=== PATIENT | male | born 1965 | race Caucasian/White ===

== ENCOUNTER → 2020-06-18 13:40 | Outpatient (CLI) | payer BC, SELFPAY ==
[2020-06-18 14:10] LABS: Basophils # 0.1 K/mm3 (0-0.2); Basophils % 0.9 % (0.1-2.0); Eosinophils # 0.2 K/mm3 (0.0-0.4); Eosinophils % 2.9 % (0.1-12.0); Hematocrit 42.8 % (42.0-52.0); Hemoglobin 13.9 g/dL (14.1-18.0); Lymphocytes # 1.9 K/mm3 (0.7-4.5); Lymphocytes % 25.8 % (10-50); Mean Corpuscular HGB Conc 32.4 g/dL (31.8-35.4); Mean Corpuscular Hemoglobin 32.3 pg (27.0-31.2); Mean Corpuscular Volume 99.7 fl (80-94); Mean Platelet Volume 7.8 fl (7.4-10.4); Monocytes # 0.5 K/mm3 (0.1-1.0); Monocytes % 6.9 % (1.7-9.3); Neutrophils # 4.7 K/mm3 (1.8-7.8); Neutrophils % 63.4 % (37.0-80.0); Platelet Count 303 K/mm3 (142-424); Red Blood Count 4.29 M/mm3 (4.60-6.20); Red Cell Distribution Width 13.3 % (11.5-17.5); White Blood Count 7.5 K/mm3 (4.8-10.8)
[2020-06-18 14:17] LABS: Alanine Aminotransferase 52 U/L (12-78); Albumin Level 4.7 g/dl (3.5-5.0); Albumin/Globulin Ratio 1.4 (1.1-1.8); Alkaline Phosphatase 84 U/L (38-126); Anion Gap 17.2 mEq/L (5-15); Aspartate Amino Transferase 123 U/L (17-59); Bilirubin,Total 0.4 mg/dl (0.2-1.3); Blood Urea Nitrogen 8 mg/dl (9-20); Calcium 9.8 mg/dl (8.4-10.2); Carbon Dioxide 24 mmol/L (22.0-30.0); Chloride 103 mmol/L (98-107); Chol/HDL Ratio 2.9 (1-3.5); Cholesterol 180 mg/dl (140-200); Estimated Glomerular Filt Rate 102 ml/min (>60); GFR (African American) 123 ML/MIN (>60); Globulin 3.4 g/dL (1.3-3.2); Glucose 119 mg/dl (74-100); HDL Cholesterol 62 mg/dl (40-60); Potassium 4.2 mmoL/L (3.5-5.1); Sodium 140 mmol/L (136-145); Total Protein,Serum 8.1 g/dl (6.3-8.2); Triglycerides 337 mg/dl (30-150); VLDL Cholesterol 67 mg/dL (0-40)
[2020-06-18 14:28] LABS: Direct LDL Cholesterol 87.29 mg/dL (100-129)
[2020-06-18 14:46] LABS: Prostate Specific Ag Screen 0.3 ng/ml (0.0-4.0); Thyroid Stimulating Hormone 1.34 uIU/mL (0.465-4.68)
== END ==
PROVIDERS: Visit Provider Family Medicine
DX: Z00.00 Encounter for general adult medical examination without abnormal findings (principal); M54.2 Cervicalgia; E78.5 Hyperlipidemia, unspecified; E03.9 Hypothyroidism, unspecified; Z12.5 Encounter for screening for malignant neoplasm of prostate
CPT/HCPCS: 80053; 80061; 84443; 85025; G0103

== ENCOUNTER → 2021-08-11 17:39 | Outpatient (CLI) | payer BC, SELFPAY ==
[2021-08-11 17:30] LABS: Basophils # 0.1 K/mm3 (0-0.2); Basophils % 1.5 % (0.1-2.0); Eosinophils # 0.2 K/mm3 (0.0-0.4); Eosinophils % 3.2 % (0.1-12.0); Hematocrit 44.8 % (42.0-52.0); Hemoglobin 14.9 g/dL (14.1-18.0); Lymphocytes # 2.2 K/mm3 (0.7-4.5); Lymphocytes % 35.3 % (10-50); Mean Corpuscular HGB Conc 33.4 g/dL (31.8-35.4); Mean Corpuscular Hemoglobin 33.8 pg (27.0-31.2); Mean Corpuscular Volume 101.2 fl (80-94); Monocytes # 0.4 K/mm3 (0.1-1.0); Monocytes % 6.4 % (1.7-9.3); Neutrophils # 3.3 K/mm3 (1.8-7.8); Neutrophils % 53.4 % (37.0-80.0); Platelet Count 325 K/mm3 (142-424); Red Blood Count 4.42 M/mm3 (4.60-6.20); Red Cell Distribution Width 13.5 % (11.5-17.5); White Blood Count 6.1 K/mm3 (4.8-10.8)
[2021-08-11 17:39] LABS: Chloride 107 mmol/L (98-107); Potassium 4.1 mmoL/L (3.5-5.1); Sodium 142 mmol/L (136-145)
[2021-08-11 17:41] LABS: Blood Urea Nitrogen 7 mg/dl (9-20); Estimated Glomerular Filt Rate 141 ml/min (>60); GFR (African American) 171 ML/MIN (>60)
[2021-08-11 17:42] LABS: Alanine Aminotransferase 176 U/L (12-78); Albumin Level 4.8 g/dl (3.5-5.0); Albumin/Globulin Ratio 1.5 (1.1-1.8); Alkaline Phosphatase 79 U/L (38-126); Anion Gap 18.1 mEq/L (5-15); Aspartate Amino Transferase 274 U/L (17-59); Bilirubin,Total 0.6 mg/dl (0.2-1.3); Carbon Dioxide 21 mmol/L (22.0-30.0); Globulin 3.3 g/dL (1.3-3.2); Glucose 94 mg/dl (74-100); Total Protein,Serum 8.1 g/dl (6.3-8.2)
[2021-08-11 18:12] LABS: Thyroid Stimulating Hormone 1.14 uIU/mL (0.465-4.68)
== END ==
PROVIDERS: Visit Provider Family Medicine
DX: E03.9 Hypothyroidism, unspecified (principal)
CPT/HCPCS: 80053; 84443; 85025

== ENCOUNTER 2025-04-06 10:00 | Outpatient (CLI) | payer BC, SELFPAY ==
[2025-04-06 16:30] LABS: Hematocrit 38.3 % (42.0-52.0); Hemoglobin 12.9 g/dL (14.1-18.0); Immature Granulocytes % 0.4 %; Mean Corpuscular HGB Conc 33.7 g/dL (31.8-35.4); Mean Corpuscular Hemoglobin 34.8 pg (27.0-31.2); Mean Corpuscular Volume 103.2 fl (80-94); Nucleated Red Blood Cells % 0 %; Platelet Count 176 K/mm3 (142-424); Red Blood Count 3.71 M/mm3 (4.60-6.20); Red Cell Distribution Width-SD 47.2 fL; White Blood Count 5.2 K/mm3 (4.8-10.8)
[2025-04-06 16:47] LABS: INR 1.19 (0.9-1.1); Prothrombin Time 13.0 seconds (10.1-12.5)
[2025-04-06 17:03] LABS: Albumin Level 4.0 g/dl (3.5-5.0); Chloride 101 mmol/L (98-107); Potassium 3.8 mmoL/L (3.5-5.1); Sodium 142 mmol/L (136-145)
[2025-04-06 17:05] LABS: Alanine Aminotransferase 38 U/L (12-78); Anion Gap 21.8 mEq/L (5-15); Aspartate Amino Transferase 160 U/L (17-59); Blood Urea Nitrogen 3 mg/dl (9-20); Carbon Dioxide 23 mmol/L (22.0-30.0); Creatinine,Serum 0.50 mg/dl (0.66-1.25); Estimated Glomerular Filt Rate 171 ml/min (>60); GFR (African American) 207 ML/MIN (>60)
[2025-04-06 17:06] LABS: Albumin/Globulin Ratio 1.1 (1.1-1.8); Alkaline Phosphatase 187 U/L (38-126); Bilirubin,Total 0.9 mg/dl (0.2-1.3); Calcium 8.8 mg/dl (8.4-10.2); Cholesterol 186 mg/dl (140-200); Globulin 3.7 g/dL (1.3-3.2); Glucose 70 mg/dl (74-100); HDL Cholesterol 66 mg/dl (40-60); Lipase 197 U/L (23-300); Magnesium 1.9 mg/dl (1.6-2.3); Total Protein,Serum 7.7 g/dl (6.3-8.2); Triglycerides 103 mg/dl (30-150)
[2025-04-06 17:44] LABS: Hepatitis C Ab Qual. W/ RFX NEGATIVE (Negative)
[2025-04-06 19:06] LABS: Vitamin B12 745 pg/mL (239-931)
[2025-04-06 19:38] LABS: Folate 9.30 ng/mL
[2025-04-07 06:16] LABS: Hepatitis B Surface Antigen Negative (Negative)
--- OUTSIDE RECORDS SUMMARY | 2025-04-07 08:19 | XMS_ITS | Clinical Summary ---
Author Organization [facility] Address [address] [place] [address] Care Team Providers Care Chief Diversity Officer Name Role Phone Pcp, No Primary Care Provider Unavailabl e Allergies Active Allergy Reactions Criticality Noted Date Comments Hydrocodone-Acetaminophen Other - please document in the comment field Low 11/15/2012 Medications atorvastatin (Lipitor) 20 MG tablet Take 1 tablet (20 mg) by mouth 1 (one) time each day in the morning. 4 Active ergocalciferol 1.25 MG (97608 UT) capsule every 14 (fourteen) days. Sunday and Sunday 4 Active levothyroxine (Synthroid, Levoxyl) 50 MCG tablet Take 1 tablet (50 mcg) by mouth 1 (one) time each day in the morning. 4 Active latanoprost (Xalatan) 0.005 % ophthalmic solution Administer 1 drop into both eyes 1 (one) time each day. 2.5 mL 11 4 Active brimonidine 0.2 % OP ophthalmic solution Administer 1 drop into both eyes 2 (two) times a day. 5 mL 11 4 Active timolol (Timoptic) 0.5 % ophthalmic solution Administer 1 drop into both eyes 2 (two) times a day. 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 Age-related nuclear cataract of both eyes 2023 Resolved Problems Problem Noted Date Diagnosed Date Resolved Date Combined forms of age-relate d cataract of both eyes 09/13/2023 03/22/2025 Family History Medical History Relation Name Comments Cancer Mother Cataracts Mother Heart disease Mother Relation Name Status Comments Mother Social History Tobacco Use Types Packs/Day Years Used Date Smoking Tobacco: Never Smokeless Tobacco: Current Snuff Tobacco Cessation:Ready to Q uit: Not Asked; Counseling Given: Not Answered Comments:Can daily Alcohol Use Standard Drinks/Week Comments Yes 90 (1 standard drink = 0.6 oz pu re alcohol) Sex and Gender Information Value Date Recorded Sex Assigned at Male 09/10/2023 6:48 PM EDT Legal Sex Male 7:48 PM EDT Gender Identity Male 09/10/2023 6:48 PM EDT Sexual Orientation Not on file Last Filed Vital Signs Vital Sign Reading Time Taken Comments Blood Pressure 127/95 12/04/2023 12:15 PM EDT Pulse 60 12/04/2023 12:15 PM EDT Temperature 36.5 C (97.7 F) 12/04/2023 12:15 PM EDT Respiratory Rate 20 12/04/2023 12:1 5 PM EDT Oxygen Saturation 97% 12/04/2023 12: 15 PM EDT Inhaled Oxygen Concentration - - Weight 82.9 kg (182 lb 12.2 oz) 024 10:17 AM EDT Height 177.8 cm (5' 10 ) 12/04/2023 10: 17 AM EDT Body Mass Index 26.22 12/04/2023 10:17 AM EDT Plan of Treatment Health Maintenance Due Date Last Done Comments [facility]-Depression Screening 1967 [facility]-HIV Screening 1967 [facility]-Hepatitis C Screening 1967 [facility]-/Child/Adol SDOH Screenings 1965 [id number] Vaccine (#1) 11/19/1972 [facility]- SDOH Screenings 11/19/1985 [facility]-Adult SDOH Screenings 11/19/1985 [facility]-Hepatitis B Vaccines (1 of 3 - 19+ 3-dose series) 11/19/1986 CT Colonography 11/19/2012 Colonoscopy 11/19/2012 FIT-DNA 11/19/2012 FIT 11/19/2012 FOBT 11/19/2012 Sigmoidoscopy 11/19/2012 [facility]-Colorectal Cancer Screening 11/19/2012 [facility]-Pneumococcal Vaccine: 50 + Years (1 of 1 - PCV) 11/19/2017 [facility]-Zoster Vaccines (1 of 2) 11/19/2017 [facility]-Influenza Vaccine (#1) 2025 03/28/2013 [facility]-DTaP,Tdap,and Td Vaccine s (3 - Td or Tdap) 01/09/2033 01/09/2023, 02/25/2013, 07/17/1996 [facility]-Obesity Intervention Completed 07/30/2023 HPV Vaccines Aged Out No longer eligi ble based on patient's age to complete this topic [facility]-HIB Vaccines Aged Out No longer e ligible based on patient's age to complete this topic [facility]-Hepatitis A Vaccines Aged Out No longer eligible based on patient's age to complete this topic [facility]-IPV Vaccines Aged Out No longer e ligible based on patient's age to complete this topic [facility]-Rotavirus Vaccines Aged Out No lo nger eligible based on patient's age to complete this topic Medical Devices Implanted Type Area Plant Breeder Device Identifier Shelf Expiration Date Model / Serial / Lot Lens Monofocal Clear [id number] 21.0 - [id number] Implanted:Qty: 1 on 2023 by Eitan Meza MD at [facility] Left: Eye [id number] 04/10/2027 CC60WF.210 / [id number] / [id number] Lens Monofocal Clear [id number] 20.5 - [id number] Implanted:Qty: 1 on 12/04/2023 by Eitan Meza MD at [facility] Right: Eye [id number] 05/23/2027 CC60WF.205 / [id number] / [id number] Insurance [employer] Care Teams Chief Diversity Officer Relationship Specialty Start Date End Date Pcp, [place] [address] PCP - General Family Medicine 08/23/23
--- OUTSIDE RECORDS SUMMARY | 2025-04-07 08:19 | XMS_ITS | Clinical Summary ---
Author Organization [facility] Address [address] [address] [address] Phone Care Team Providers Care Inspector Precision Name Role Phone Martin Richards MD Primary Care Provider [phone] Allergies Active Allergy Reactions Criticality Noted Date Comments Hydrocodone-Acetaminophen 11/15/2012 Medications No known medications Medical History Medical History Date Comments Thyroid disease Social History Tobacco Use Types Packs/Day Years Used Date Smoking Tobacco: Never Smokeless Tobacco: Current Snuff Alcohol Use Standard Drinks/Week Comments Yes 24 (1 standard drink = 0.6 oz pu re alcohol) daily/18-24 beers Sex and Gender Information Value Date Recorded Sex Assigned at Not on file Legal Sex Male 11:10 AM EDT Gender Identity Not on file Sexual Orientation Not on file Last Filed Vital Signs Vital Sign Reading Time Taken Comments Blood Pressure 112/79 12/11/2022 1:10 AM EDT Pulse 74 12/11/2022 1:20 AM EDT Temperature 36.5 C (97.7 F) 12/10/2022 10:19 PM EDT Respiratory Rate 17 12/11/2022 1:20 AM EDT Oxygen Saturation 97% 12/11/2022 1:20 AM EDT Inhaled Oxygen Concentration - - Weight - - Height - - Body Mass Index - - Plan of Treatment Health Maintenance Due Date Last Done Comments Annual Wellness Exam 11/19/1970 Hepatitis B Vaccine (1 of 3 - 19+ 3-dose series) 11/19/1986 Cologuard 11/19/2012 FIT 11/19/2012 Sigmoidoscopy 11/19/2012 Virtual Colonography 11/19/2012 Pneumococcal Vaccine 50+ (1 of 1 - PCV) 11/19/2017 Zoster (1 of 2) 11/19/2017 Colon Cancer Screening 11/28/2018 Colonoscopy 11/28/2018 11/29/2015 DTaP/TDaP/Td (2 - Td or Tdap) 02/25/2023, 07/17/1996 COVID-19 Vaccine (1 - 2024-2 6 season) 2025 Influenza Vaccine (#1) 2025 03/28/2013 Meningococcal B Vaccine Aged Out No l onger eligible based on patient's age to complete this topic Insurance [facility] PPO Care Teams Inspector Precision Relationship Specialty Start Date End Date Martin Richards MD PCP - General Family Medicine 07/17/17
== END 2025-04-06 23:59 ==
LOC: LAB.DROPOF 04-07 08:16
PROVIDERS: PCP Family Medicine; Visit Provider Family Medicine
DX: E78.5 Hyperlipidemia, unspecified (principal); E03.9 Hypothyroidism, unspecified; R42 Dizziness and giddiness; R10.9 Unspecified abdominal pain; K74.60 Unspecified cirrhosis of liver; Z11.59 Encounter for screening for other viral diseases
CPT/HCPCS: 80053; 80061; 82105; 82607; 82746; 83690; 83735; 85025; 85610; 86803; 87340; 87389

== ENCOUNTER 2025-04-13 07:05 | Outpatient (CLI) | payer BC, SELFPAY ==
--- OUTSIDE RECORDS SUMMARY | 2025-04-13 07:08 | XMS_ITS | Data Portability ---
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 Lab CBC w/ auto diff 2024 025 [facility]FT[facility]I [facility], [address], [address], [place], [address], 5 12:36:57 magnesium, serum or plasma 2024 025 [facility]I [facility], [address], [place], [address], 5 12:37:01 TSH + free T4, serum 2024 025 [facility], [address], [address], [place], [address], 12:36:57 HbA1c (hemoglobi n A1c), blood 2024 025 [facility], [address], [address], [place], [address], 12:37:00 cobalamin and folate panel, serum 2024 025 [facility], [address], [place], [address], 12:36:59 vitamin D, 25-hydroxy , total, serum 2024 025 [facility], [address], [address], [place], [address], 12:37:01 iron + TIBC + ferritin, serum 2024 025 [facility], [address], [address], [place], [address], 12:36:56 CMP, serum or plasma 2024 025 [facility], [address], [address], [place], [address], 12:36:58 thyroid panel, serum 2021 022 [facility], [address], [place], [address], 16:36:41 HbA1c (hemoglobi n A1c), blood 2021 022 [facility], [address], [address], [place], [address], 16:36:43 CMP, serum or plasma 2021 022 [facility], [address], [place], [address], 16:36:39 hepatic function panel, serum 2021 [facility], [address], [place], [address], 16:36:40 lipid panel, serum 2021 [facility]FTAIL [facility], [address], [address], [place], [address], 16:36:40 ferritin, serum or plasma 2021 [facility], [address] [place], [address], 16:36:45 folate, serum 2021 [facility], [address] [place] [address], [address], 16:36:44 iron + total iron-nayeli ng capacity (TIBC), serum 2021 [facility], [address] [place] [address], [address], 16:36:42 retic count, blood 2021 [facility], [address] [place] [address], [address], 16:36:45 vitamin B12, serum 2021 [facility], [address] [place] [address], [address], 16:36:44 CBC 2021 [facility], [address] [place], [address], 16:36:39 PSA, serum or plasma 2021 [facility], [address], [place], [address], 2 16:36:42 hepatitis panel (A+B+C), acute, serum 2019 020 [facility], [address], [address], [place], [address], 0 05:37:07 hepatitis C Ab, signal-to- cutoff, serum or plasma 2019 020 [facility], [address], [address], [place], [address], 0 03:36:04 HIV 1+2 Ab, rapid IA, serum, plasma or blood 2019 020 [facility], [address], [address], [place], [address], 0 03:35:59 vitamin B12 + folate, serum or blood 2019 020 [facility], [address], [address], [place], [address], 0 03:36:00 CBC w/ auto diff 2019 020 [facility], [address], [address], [place], [address], 0 03:35:56 HbA1c (hemoglobi n A1c), blood 2019 020 [facility], [address], [address], [place], [address], 0 03:36:02 magnesium, serum or plasma 2019 020 [facility], [address], [place], [address], 0 03:36:04 CMP, serum or plasma 2019 020 [facility], [address], [place], [address], 0 03:35:57 vitamin B12, serum 2019 020 [email or web address] [facility], [address], [place], [address], 0 07:48:41 TSH, ultra-sens itive, serum 2019 020 [facility]I [facility], [address], [address], [place], [address], 0 03:36:02 vitamin D, 25-hydroxy , total, serum 2019 020 [facility], [address], [address], [place], [address], 0 03:36:03 iron + total iron-nayeli ng capacity (TIBC), serum 2019 020 [facility], [address], [address], [place], [address], 0 03:35:58 lipid panel, serum 2019 020 [facility], [address], [address], [place], [address], 0 03:35:58 testostero ne, free + total, serum 2019 020 [facility], [address], [address], [place], [address], 0 03:36:00 shbg (sex hormone-bi nding globulin), serum 2019 020 [facility], [address], [address], [place], [address], 0 03:36:05 PSA, serum or plasma 2019 020 [facility], [address], [address], [place], [address], 0 03:36:01 TSH + free T4, serum 2017 018 [facility], [address], [place], [address], 8 08:54:17 CBC w/ auto diff 2017 018 [facility], [address], [place], [address], 8 08:54:18 CMP, serum or plasma 2017 018 [facility], [address], [place], [address], 8 08:54:[address] referral 2019 020 [email or web address] Jolie Charlton MD, [address] , [place], [address], 1 13:36:41 Procedures None recorded. Surgeries None recorded. Imaging CT, head, w/o contrast - call Erika at to schedule 2024 025 [facility], [address], [place], [address], 5 12:52:30 loop monitor 2019 020 [email or web address] [facility], [address], [place], [address], 1 13:37:34 electrocar diogram 2019 [email or web address] 1 [facility], [address] [place], [address], 0 16:06:23 XR, shoulder, 2 or more view 2017 018 [facility], [address] [place], [address], 8 20:09:52 Medication Orders ketorolac 60 mg/2 mL intramuscu lar solution 2021 022 [email or web address] Not available 2 15:00:10 Celestone Soluspan 6 mg/mL suspension for injection 2021 022 [email or web address] Not available 2 15:00:08 cyclobenza dora 10 mg tablet [address] [facility], [address] [place], [address], 5 08:11:33 levothyrox ine 50 mcg tablet [address] [facility] [address] [facility], [address] [place], [address], 5 08:15:52 Vitamin D2 1,250 mcg (50,000 unit) capsule [address] [facility] [address] [facility], [address] [place], [address], 5 08:15:56 atorvastat in 20 mg tablet [address] [facility] [address] [facility], [address] [place], [address], 5 08:15:33 Depo-Medro l 80 mg/mL suspension for injection 2019 020 Not available 0 10:38:37 tramadol 50 mg tablet [address] [facility], [address] [place], [address], 5 08:11:20 Ambien 5 mg tablet 2017 018 NEFTALI [facility], [address] [place], [address], 2 07:53:51 Depo-Medro l 80 mg/mL suspension for injection 2017 018 [email or web address] [facility], [address] [place], [address], 0 10:38:37 Patient TargetsNo targets recorded. Patient Instructions Encounter Date Encounter Id Patient Instructions Last Modified By Organization Details Last Modified Time 09/26/2017 [id number] elevated blood pressure: care instructions [email or web address] Not available 09/26/2017 20:09:52 insomnia: care instructions sneus Not available 09/28/2017 07:44:48 high cholesterol : care instructions sneus Not available 09/26/2017 20:09:52 A healthy lifestyle: care instructions sneus Not available 09/26/2017 20:09:52 shoulder pain: care instructions sneus Not available 09/26/2017 20:09:52 03/01/2020 [id number] cardiac arrhythmia: care instructions Not available 03/01/2020 14:35:15 dizziness: care instructions Not available 03/01/2020 14:35:15 high cholesterol : care instructions Not available 03/01/2020 14:35:14 Quitting Tobacco : Care Instructions Not available 03/01/2020 15:26:43 smoking cessatio n counseling, greater than 3 minutes up to 10 minutes* Not available 03/09/2020 07:47:06 keep well hydrated, gentle stretching exercises, awaiting lab results for further clinical decision making RT C in 2 weeks for follow up Not available 03/01/2020 15:27:56 03/18/2020 [id number] acute alcohol intoxication: care instructions Not available 03/18/2020 11:09:51 high cholesterol : care instructions Not available 03/18/2020 10:55:25 keep well hydrated, take medication as prescribed, medications discussed with pt and side effects and adverse effects were discussed, RTC as scheduled and prn Not available 03/18/2020 11:08:14 discussed abnormal lab values with pt and new medications, gave pt ample time for questions, was at his side, he will RTC in 3 months Not available 03/18/2020 11:08:51 07/14/2021 [id number] acute alcohol intoxication: care instructions Not available 07/14/2021 09:02:46 high cholesterol : care instructions Not available 07/14/2021 09:02:46 anemia: care instructions Not available 07/14/2021 09:02:46 Quitting Tobacco : Care Instructions Not available 07/14/2021 09:02:46 shoulder pain: care instructions Not available 07/14/2021 09:02:46 keep well hydrated, take medication as prescribed, medications discussed with pt and side effects and adverse effects were discussed, RTC prn Not available 07/14/2021 09:11:24 pt did not fill out the controlled agreement form to get Tramadol as he gets on occassion, he states he smokes dope and is not going to come out here for pill counts or drug screens, therefore he will need to take NSAIDS as directed OTC for pain. awaiting lab results for further diagnostic decision making Not available 07/14/2021 09:11:33 01/19/2025 [id number] smoking cessatio n counseling, greater than 3 minutes up to 10 minutes* Not available 01/19/2025 08:17:03 body mass index: care instructions Not available 01/19/2025 09:58:37 learning about healthy weight Not available 01/19/2025 09:58:37 Discussed if symptoms returned, recommend ED evaluation Advised to take medication as directed Will call with results of labs and imaging once available Discussed intermediate card tender effect of chronic alcoholism To call office for questions, concerns or issues Not available 01/19/2025 08:47:49 Reason for Referral Mandate [employer] Referral for Co nduction disorder of the heart Referring Physician: Faustina Sharma, Family Medicine, Encounter Date: 03/01/2020 Results Created Date Observation Date Name Description Value Unit Range Abnormal Flag Note LastModifiedBy Organization Detail LastModifiedTime 09/27/19 18 09/27/2017 TSH + free T4, serum TSH 1.440 uIU/m L 0.450- 4.500 Not Available [facility] ([facility]) [address], [place], [address], 09/27/2017 08:54:17 09/27/19 18 09/27/2017 TSH + free T4, serum T4,free(dire ct) 1.04 NG/dL 0.82-1 .77 Not Available [facility] ([facility]) [address] [place], [address], 09/27/2017 08:54:17 09/27/19 18 09/27/2017 CBC w/ auto diff WBC 6.1 x10e3 /uL 3.4-10 .8 Not Available [facility] ([facility]) [address] [place], [address], 09/27/2017 08:54:18 09/27/19 18 09/27/2017 CBC w/ auto diff RBC 4.41 x10e6 /uL 4.14-5 .80 Not Available [facility] ([facility]) [address] [place], [address], 09/27/2017 08:54:18 09/27/19 18 09/27/2017 CBC w/ auto diff hemoglobin 14.8 g/dL 13.0-1 7.7 Not Available [facility] ([facility]) [address] [place], [address], 09/27/2017 08:54:18 09/27/19 18 09/27/2017 CBC w/ auto diff hematocrit 41.6 % 37.5-5 1.0 Not Available [facility] ([facility]) [address] [place], [address], 09/27/2017 08:54:18 09/27/19 18 09/27/2017 CBC w/ auto diff MCV 94 fL 79-97 Not Available [facility] ([facility]) [address] [place], [address], 09/27/2017 08:54:18 09/27/19 18 09/27/2017 CBC w/ auto diff MCH 33.6 pg 26.6-3 3.0 above high normal Not Available [facility] ([facility]) [address], [place], [address], 09/27/2017 08:54:18 09/27/19 18 09/27/2017 CBC w/ auto diff MCHC 35.6 g/dL 31.5-3 5.7 Not Available [facility] ([facility]) [address], [place], [address], 09/27/2017 08:54:18 09/27/19 18 09/27/2017 CBC w/ auto diff RDW 13.4 % 12.3-1 5.4 Not Available [facility] ([facility]) [address], [place], [address], 09/27/2017 08:54:18 09/27/19 18 09/27/2017 CBC w/ auto diff platelets 290 x10e3 /uL 150-37 9 Not Available [facility] ([facility]) [address], [place], [address], 09/27/2017 08:54:18 09/27/19 18 09/27/2017 CBC w/ auto diff neutrophils 50 % not estab. Not Available [facility] ([facility]) [address] [place], [address], 09/27/2017 08:54:18 09/27/19 18 09/27/2017 CBC w/ auto diff lymphs 37 % not estab. Not Available [facility] ([facility]) [address], [place], [address], 09/27/2017 08:54:18 09/27/19 18 09/27/2017 CBC w/ auto diff monocytes 9 % not estab. Not Available [facility] ([facility]) [address] [place], [address], 09/27/2017 08:54:18 09/27/19 18 09/27/2017 CBC w/ auto diff eos 3 % not estab. Not Available [facility] ([facility]) [address] [place], [address], 09/27/2017 08:54:18 09/27/19 18 09/27/2017 CBC w/ auto diff basos 1 % not estab. Not Available [facility] ([facility]) [address] [place], [address], 09/27/2017 08:54:18 09/27/19 18 09/27/2017 CBC w/ auto diff immature cells PACKAGER HAND Not Available [facility] ([facility]) [address] [place], [address], 09/27/2017 08:54:18 09/27/19 18 09/27/2017 CBC w/ auto diff neutrophils (absolute) 3.1 x10e3 /uL 1.4-7. 0 Not Available [facility] ([facility]) [address] [place], [address], 09/27/2017 08:54:18 09/27/19 18 09/27/2017 CBC w/ auto diff lymphs (absolute) 2.3 x10e3 /uL 0.7-3. 1 Not Available [facility] ([facility]) [address] [place], [address], 09/27/2017 08:54:18 09/27/19 18 09/27/2017 CBC w/ auto diff monocytes(ab solute) 0.5 x10e3 /uL 0.1-0. 9 Not Available [facility] ([facility]) [address] [place], [address], 09/27/2017 08:54:18 09/27/19 18 09/27/2017 CBC w/ auto diff eos (absolute) 0.2 x10e3 /uL 0.0-0. 4 Not Available [facility] ([facility]) [address] [place], [address], 09/27/2017 08:54:18 09/27/19 18 09/27/2017 CBC w/ auto diff baso (absolute) 0.1 x10e3 /uL 0.0-0. 2 Not Available [facility] ([facility]) [address] [place], [address], 09/27/2017 08:54:18 09/27/19 18 09/27/2017 CBC w/ auto diff immature granulocytes 0 % not estab. Not Available [facility] ([facility]) [address] [place], [address], 09/27/2017 08:54:18 09/27/19 18 09/27/2017 CBC w/ auto diff immature grans (abs) 0.0 x10e3 /uL 0.0-0. 1 Not Available [facility] ([facility]) [address] [place], [address], 09/27/2017 08:54:18 09/27/19 18 09/27/2017 CBC w/ auto diff NRBC PACKAGER HAND Not Available [facility] ([facility]) [address] [place], [address], 09/27/2017 08:54:18 09/27/19 18 09/27/2017 CBC w/ auto diff hematology comments: PACKAGER HAND Not Available [facility] ([facility]) [address] [place], [address], 09/27/2017 08:54:18 09/27/19 18 09/27/2017 CMP, serum or plasm a glucose 88 mg/dL 65-99 Not Available [facility] ([facility]) [address] [place], [address], 09/27/2017 08:54:19 09/27/19 18 09/27/2017 CMP, serum or plasm a BUN 7 mg/dL 6-24 Not Available [facility] ([facility]) [address] [place], [address], 09/27/2017 08:54:19 09/27/19 18 09/27/2017 CMP, serum or plasm a creatinine 0.68 mg/dL 0.76-1 .27 below low normal Not Available [facility] ([facility]) [address] [place], [address], 09/27/2017 08:54:19 09/27/19 18 09/27/2017 CMP, serum or plasm a eGFR if nonafricn AM 112 mL/mi n/1.7 3 >59 Not Available [facility] ([facility]) [address] [place], [address], 09/27/2017 08:54:19 09/27/19 18 09/27/2017 CMP, serum or plasm a eGFR if africn AM 130 mL/mi n/1.7 3 >59 Not Available [facility] ([facility]) [address] [place], [address], 09/27/2017 08:54:19 09/27/19 18 09/27/2017 CMP, serum or plasm a BUN/creatini ne ratio 10 9-20 Not Available [facility] ([facility]) [address] [place], [address], 09/27/2017 08:54:19 09/27/19 18 09/27/2017 CMP, serum or plasm a sodium 143 mmol/ L 134-14 4 Not Available [facility] ([facility]) [address] [place], [address], 09/27/2017 08:54:19 09/27/19 18 09/27/2017 CMP, serum or plasm a potassium 3.9 mmol/ L 3.5-5. 2 Not Available [facility] ([facility]) [address] [facility] [place], [address], 09/27/2017 08:54:19 09/27/19 18 09/27/2017 CMP, serum or plasm a chloride 103 mmol/ L 96-106 Not Available [facility] ([facility] [address] [place], [address], 09/27/2017 08:54:19 09/27/19 18 09/27/2017 CMP, serum or plasm a carbon dioxide, total 19 mmol/ L 18-29 Not Available [facility] ([facility] [address] [facility] [place], [address], 09/27/2017 08:54:19 09/27/19 18 09/27/2017 CMP, serum or plasm a calcium 9.5 mg/dL 8.7-10 .2 Not Available [facility] ([facility]) [address] [place], [address], 09/27/2017 08:54:19 09/27/19 18 09/27/2017 CMP, serum or plasm a protein, total 7.4 g/dL 6.0-8. 5 Not Available [facility] ([facility]) [address] [place], [address], 09/27/2017 08:54:19 09/27/1909/27/2017 CMP, serum or plasm a albumin 4.6 g/dL 3.5-5. 5 Not Available [facility] ([facility]) [address] [place], [address], 09/27/2017 08:54:19 09/27/1909/27/2017 CMP, serum or plasm a globulin, total 2.8 g/dL 1.5-4. 5 Not Available [facility] ([facility]) [address] [place], [address], 09/27/2017 08:54:19 09/27/19 18 09/27/2017 CMP, serum or plasm a A/G ratio 1.6 1.2-2. 2 Not Available [facility] ([facility]) [address] [place], [address], 09/27/2017 08:54:19 09/27/19 18 09/27/2017 CMP, serum or plasm a bilirubin, total 0.3 mg/dL 0.0-1. 2 Not Available [facility] ([facility]) [address] [place], [address], 09/27/2017 08:54:19 09/27/19 18 09/27/2017 CMP, serum or plasm a alkaline phosphatase 77 IU/L 39-117 Not Available [facility] ([facility]) [address] [place], [address], 09/27/2017 08:54:19 09/27/19 18 09/27/2017 CMP, serum or plasm a AST (SGOT) 135 IU/L 0-40 above high normal Not Available [facility] ([facility]) [address] [place], [address], 09/27/2017 08:54:19 09/27/19 18 09/27/2017 CMP, serum or plasm a ALT (SGPT) 90 IU/L 0-44 above high normal Not Available [facility] ([facility]) [address] [place], [address], 09/27/2017 08:54:19 03/01/20 20 03/02/2020 CBC w/ auto diff WBC 9.2 x10e3 /uL 3.4-10 .8 Not Available [facility] ([facility]) [address] [place], [address], 03/05/2020 03:35:56 03/01/2003/02/2020 CBC w/ auto diff RBC 4.18 x10e6 /uL 4.14-5 .80 Not Available [facility] ([facility]) [address], [place], [address], 03/05/2020 03:35:56 03/01/2003/02/2020 CBC w/ auto diff hemoglobin 14.4 g/dL 13.0-1 7.7 Not Available [facility] ([facility]) [address] [facility] [address], [place], [address], 03/05/2020 03:35:56 03/01/2003/02/2020 CBC w/ auto diff hematocrit 41.4 % 37.5-5 1.0 Not Available [facility] ([facility]) [address], [place], [address], 03/05/2020 03:35:56 03/01/2003/02/2020 CBC w/ auto diff MCV 99 fL 79-97 above high normal Not Available [facility] ([facility]) [address], [place], [address], 03/05/2020 03:35:56 03/01/2003/02/2020 CBC w/ auto diff MCH 34.4 pg 26.6-3 3.0 above high normal Not Available [facility] ([facility]) [address] [facility] [address], [place], [address], 03/05/2020 03:35:56 03/01/2003/02/2020 CBC w/ auto diff MCHC 34.8 g/dL 31.5-3 5.7 Not Available [facility] ([facility]) [address] [place], [address], 03/05/2020 03:35:56 03/01/2003/02/2020 CBC w/ auto diff RDW 12.9 % 11.6-1 5.4 Not Available [facility] ([facility]) [address] [place], [address], 03/05/2020 03:35:56 03/01/2003/02/2020 CBC w/ auto diff platelets 321 x10e3 /uL 150-45 0 Not Available [facility] ([facility]) [address] [place], [address], 03/05/2020 03:35:56 03/01/20 20 03/02/2020 CBC w/ auto diff neutrophils 62 % not estab. Not Available [facility] ([facility]) [address], [place], [address], 03/05/2020 03:35:56 03/01/20 20 03/02/2020 CBC w/ auto diff lymphs 22 % not estab. Not Available [facility] ([facility]) [address] [place], [address], 03/05/2020 03:35:56 03/01/20 20 03/02/2020 CBC w/ auto diff monocytes 11 % not estab. Not Available [facility] ([facility]) [address] [place], [address], 03/05/2020 03:35:56 03/01/20 20 03/02/2020 CBC w/ auto diff eos 4 % not estab. Not Available [facility] ([facility]) [address], [place], [address], 03/05/2020 03:35:56 03/01/20 20 03/02/2020 CBC w/ auto diff basos 1 % not estab. Not Available [facility] ([facility]) [address], [place], [address], 03/05/2020 03:35:56 03/01/2003/02/2020 CBC w/ auto diff immature cells PACKAGER HAND Not Available [facility] ([facility]) [address] [place], [address], 03/05/2020 03:35:56 03/01/20 20 03/02/2020 CBC w/ auto diff neutrophils (absolute) 5.7 x10e3 /uL 1.4-7. 0 Not Available [facility] ([facility]) [address] [facility] [address], [place], [address], 03/05/2020 03:35:56 03/01/20 20 03/02/2020 CBC w/ auto diff lymphs (absolute) 2.0 x10e3 /uL 0.7-3. 1 Not Available [facility] ([facility]) [address] [facility] [address], [place], [address], 03/05/2020 03:35:56 03/01/20 20 03/02/2020 CBC w/ auto diff monocytes(ab solute) 1.0 x10e3 /uL 0.1-0. 9 above high normal Not Available [facility] ([facility]) [address] [facility], [place], [address], 03/05/2020 03:35:56 03/01/20 20 03/02/2020 CBC w/ auto diff eos (absolute) 0.3 x10e3 /uL 0.0-0. 4 Not Available [facility] ([facility]) [address] [facility], [place], [address], 03/05/2020 03:35:56 03/01/20 20 03/02/2020 CBC w/ auto diff baso (absolute) 0.1 x10e3 /uL 0.0-0. 2 Not Available [facility] ([facility]) [address] [facility], [place], [address], 03/05/2020 03:35:56 03/01/20 20 03/02/2020 CBC w/ auto diff immature granulocytes 0 % not estab. Not Available [facility] ([facility]) [address] [place], [address], 03/05/2020 03:35:56 03/01/20 20 03/02/2020 CBC w/ auto diff immature grans (abs) 0.0 x10e3 /uL 0.0-0. 1 Not Available [facility] ([facility]) [address] [place], [address], 03/05/2020 03:35:56 03/01/2003/02/2020 CBC w/ auto diff NRBC PACKAGER HAND Not Available [facility] ([facility]) [address] [place], [address], 03/05/2020 03:35:56 03/01/2003/02/2020 CBC w/ auto diff hematology comments: PACKAGER HAND Not Available [facility] ([facility]) [address] [place], [address], 03/05/2020 03:35:56 03/01/2003/02/2020 CMP, serum or plasm a glucose 77 mg/dL 65-99 Not Available [facility] Lab) [address] [place], [address], 03/05/2020 03:35:57 03/01/2003/02/2020 CMP, serum or plasm a BUN 11 mg/dL 6-24 Not Available [facility] ([facility]) [address] [place], [address], 03/05/2020 03:35:57 03/01/2003/02/2020 CMP, serum or plasm a creatinine 0.84 mg/dL 0.76-1 .27 Not Available [facility] ([facility]) [address] [place], [address], 03/05/2020 03:35:57 03/01/2003/02/2020 CMP, serum or plasm a eGFR if nonafricn AM 101 mL/mi n/1.7 3 >59 Not Available [facility] ([facility]) [address] [place], [address], 03/05/2020 03:35:57 03/01/2003/02/2020 CMP, serum or plasm a eGFR if africn AM 116 mL/mi n/1.7 3 >59 Not Available [facility] ([facility]) [address] [place], [address], 03/05/2020 03:35:57 03/01/2003/02/2020 CMP, serum or plasm a BUN/creatini ne ratio 13 9-20 Not Available [facility] ([facility]) [address] [place], [address], 03/05/2020 03:35:57 03/01/2003/02/2020 CMP, serum or plasm a sodium 141 mmol/ L 134-14 4 Not Available [facility] ([facility]) [address] [place], [address], 03/05/2020 03:35:57 03/01/2003/02/2020 CMP, serum or plasm a potassium 3.9 mmol/ L 3.5-5. 2 Not Available [facility] ([facility]) [address] [place], [address], 03/05/2020 03:35:57 03/01/2003/02/2020 CMP, serum or plasm a chloride 99 mmol/ L 96-106 Not Available [facility] ([facility]) [address] [place], [address], 03/05/2020 03:35:57 03/01/2003/02/2020 CMP, serum or plasm a carbon dioxide, total 25 mmol/ L 20-29 Not Available [facility] ([facility]) [address] [place], [address], 03/05/2020 03:35:57 03/01/2003/02/2020 CMP, serum or plasm a calcium 9.5 mg/dL 8.7-10 .2 Not Available [facility] ([facility]) [address] [place], [address], 03/05/2020 03:35:57 03/01/2003/02/2020 CMP, serum or plasm a protein, total 7.7 g/dL 6.0-8. 5 Not Available [facility] ([facility]) [address] [facility] [place], [address], 03/05/2020 03:35:57 03/01/2003/02/2020 CMP, serum or plasm a albumin 4.8 g/dL 3.8-4. 9 Not Available [facility] ([facility]) [address] [place], [address], 03/05/2020 03:35:57 03/01/2003/02/2020 CMP, serum or plasm a globulin, total 2.9 g/dL 1.5-4. 5 Not Available [facility] ([facility]) [address] [place], [address], 03/05/2020 03:35:57 03/01/2003/02/2020 CMP, serum or plasm a A/G ratio 1.7 1.2-2. 2 Not Available [facility] ([facility]) [address] [place], [address], 03/05/2020 03:35:57 03/01/2003/02/2020 CMP, serum or plasm a bilirubin, total 0.5 mg/dL 0.0-1. 2 Not Available [facility] ([facility]) [address] [place], [address], 03/05/2020 03:35:57 03/01/2003/02/2020 CMP, serum or plasm a alkaline phosphatase 73 IU/L 39-117 Not Available [facility] ([facility]) [address] [place], [address], 03/05/2020 03:35:57 03/01/2003/02/2020 CMP, serum or plasm a AST (SGOT) 99 IU/L 0-40 above high normal Not Available [facility] ([facility]) [address] [place], [address], 03/05/2020 03:35:57 03/01/2003/02/2020 CMP, serum or plasm a ALT (SGPT) 68 IU/L 0-44 above high normal Not Available [facility] ([facility]) [address] [place], [address], 03/05/2020 03:35:57 03/01/2003/02/2020 lipid panel , serum cholesterol, total 224 mg/dL 100-19 9 above high normal Not Available [facility] ([facility]) [address] [facility], [place], [address], 03/05/2020 03:35:58 03/01/2003/02/2020 lipid panel , serum triglyceride s 162 mg/dL 0-149 above high normal Not Available [facility] ([facility]) [address] [facility], [place], [address], 03/05/2020 03:35:58 03/01/2003/02/2020 lipid panel , serum HDL cholesterol 56 mg/dL >39 Not Available [facility] ([facility]) [address] [facility], [place], [address], 03/05/2020 03:35:58 03/01/2003/02/2020 lipid panel , serum VLDL cholesterol geovany 29 mg/dL 5-40 Not Available [facility] ([facility]) [address] [facility], [place], [address], 03/05/2020 03:35:58 03/01/2003/02/2020 lipid panel , serum LDL chol calc ([facility]) 139 mg/dL 0-99 above high normal Not Available [facility] ([facility]) [address] [place], [address], 03/05/2020 03:35:58 03/01/2003/02/2020 lipid panel , serum comment: PACKAGER HAND Not Available [facility] ([facility]) [address] [place], [address], 03/05/2020 03:35:58 03/01/2003/02/2020 iron + total iron- nayeli ng capac ity (TIBC ), serum iron bind.cap.(TI BC) 374 ug/dL 250-45 0 Not Available [facility] ([facility]) [address] [facility], [place], [address], 03/05/2020 03:35:58 03/01/2003/02/2020 iron + total iron- nayeli ng capac ity (TIBC ), serum UIBC 259 ug/dL 111-34 3 Not Available [facility] ([facility]) [address] [place], [address], 03/05/2020 03:35:58 03/01/2003/02/2020 iron + total iron- nayeli ng capac ity (TIBC ), serum iron 115 ug/dL 38-169 Not Available [facility] ([facility]) [address] [place], [address], 03/05/2020 03:35:58 03/01/2003/02/2020 iron + total iron- nayeli ng capac ity (TIBC ), serum iron saturation 31 % 15-55 Not Available [facility] ([facility]) [address] [place], [address], 03/05/2020 03:35:58 03/01/2003/02/2020 HIV 1+2 Ab, rapid IA, serum , plasm a or blood HIV 1 Ab Negati ve negati ve Not Available [facility] ([facility]) [address] [place], [address], 03/05/2020 03:35:59 03/01/2003/02/2020 HIV 1+2 Ab, rapid IA, serum , plasm a or blood HIV 2 Ab Negati ve negati ve Not Available [facility] ([facility]) [address] [place], [address], 03/05/2020 03:35:59 03/01/2003/02/2020 HIV 1+2 Ab, rapid IA, serum , plasm a or blood interpretati on: Negati ve See RNA Refle x. Not Available [facility] ([facility]) [address] [facility], [place], [address], 03/05/2020 03:35:59 03/01/2003/04/2020 HIV 1+2 Ab, rapid IA, serum , plasm a or blood HIV 1 RNA qualitative Negati ve negati ve Negat daniela for HIV-1 RNA Not Available [facility] ([facility]) [address] [facility], [place], [address], 03/05/2020 03:35:59 03/01/2003/04/2020 HIV 1+2 Ab, rapid IA, serum , plasm a or blood final interpretati on Commen t HIV antib odies were not confi rmed and HIV 1 RNA was not detec nico. No labor atory evide nce of HIV 1 infec tion. Follo w-up testi ng for HIV 2 shoul d be perfo rmed if clini gila indic ated. Not Available [facility] ([facility]) [address] [facility], [place], [address], 03/05/2020 03:35:59 03/01/2003/02/2020 vitam in B12 + folat e, serum or blood vitamin B12 460 pg/mL 232-12 45 Not Available [facility] ([facility]) [address] [facility], [place], [address], 03/05/2020 03:36:00 03/01/2003/02/2020 vitam in B12 + folat e, serum or blood folate (folic acid), serum 8.5 NG/mL >3.0 A serum folat e margarita ntrat ion of less than 3.1 ng/mL is consi dered to repre sent clini geovayn defic iency . Not Available [facility] ([facility]) [address] [facility], [place], [address], 03/05/2020 03:36:00 03/01/20 20 03/02/2020 testo stero ne, free + total , serum testosterone , serum 381 NG/dL 264-91 6 Adult male refer ence inter hector is based on a popul ation of healt hy nonob aletha males (BMI <30) betwe en 19 and 39 years old. Silvana rose, et.al . JCEM 2017, 102;1 161-1 173. PMID: 75763 103. Not Available [facility] ([facility]) [address] [place], [address], 03/05/2020 03:36:00 03/01/2003/02/2020 testo stero ne, free + total , serum free testosterone (direct) 8.4 pg/mL 7.2-24 .0 Not Available [facility] ([facility]) [address] [place], [address], 03/05/2020 03:36:00 03/01/2003/01/2020 PSA, serum or plasm a reflex criteria Commen t The perce nt free PSA is perfo rmed on a refle x basis only when the total PSA is betwe en 4.0 and 10.0 ng/mL . Not Available [facility] ([facility]) [address] [place], [address], 03/05/2020 03:36:01 03/01/2003/02/2020 PSA, serum or plasm a prostate specific Ag, serum 0.3 NG/mL 0.0-4. 0 Thomas ECLIA metho dolog y. Accor ding to the Ameri can Urolo gical Assoc iatio n, Serum PSA shoul d decre ase and remai n at undet ectab le level s after radic al prost atect shyla. The AUA defin es bioch emica l recur rence as an initi al PSA value 0.2 ng/mL or great er follo wed by a subse quent confi rmato ry PSA value 0.2 ng/mL or great er. Value s obtai jennifer with diffe rent assay metho ds or kits canno t be used inter solomon eably . Resul ts canno t be inter prete d as absol [place] evide nce of the prese nce or absen ce of evert [place] se. Not Available [facility] ([facility]) [address] [facility], [place], [address], 03/05/2020 03:36:01 03/01/2003/02/2020 HbA1c (hemo globi n A1c), blood hemoglobin A1C 5.0 % 4.8-5. 6 Predi abete s: 5.7 - 6.4 Diabe jolynn: >6.4 Glyce tracie contr ol for adult s with diabe jolynn: <7.0 Not Available [facility] ([facility]) [address] [facility], [place], [address], 03/05/2020 03:36:01 03/01/2003/02/2020 TSH, ultra -sens itive , serum TSH 4.570 uIU/m L 0.450- 4.500 above high normal Not Available [facility] ([facility]) [address] [place], [address], 03/05/2020 03:36:02 03/01/2003/02/2020 vitam in D, 25-hy droxy , total , serum vitamin D, 25-hydroxy 17.1 NG/mL 30.0-1 00.0 below low normal Vitam in D defic iency has been defin ed by the Insti tute of Medic ine and an Endoc rine Socie ty pract ice guide line as a level of serum 25-OH vitam in D less than 20 ng/mL (1,2) . The Endoc rine Socie ty went on to furth er defin e vitam in D insuf ficie ncy as a level betwe en 21 and 29 ng/mL (2). 1. IOM (Inst itute of Medic ine). 2010. Dieta ry refer ence intak es for calci um and D. Shawn gallegos [place]: [facility] Press . 2. Marilyn gonsalez [place], Dipti cruz [place], Willem off-F michael i YEUNG, et al. Evalu ation , treat ment, and preve ntion of vitam in D defic iency : an Endoc rine Socie ty clini geovany pract ice guide line. JCEM. 2010; 96(7) :1911 -30. Not Available [facility] ([facility]) [address] [facility], [place], [address], 03/05/2020 03:36:03 03/01/2003/02/2020 hepat itis C Ab, signa l-to- cutof f, serum or plasm a hep C virus Ab <0.1 s/co_ ratio 0.0-0. 9 Negat daniela: < 0.8 Indet ermin ate: 0.8 - 0.9 Posit daniela: > 0.9 The CDC recom mends that a posit daniela HCV antib roma resul t be follo wed up with a HCV Nucle ic Acid Ampli ficat ion test (5507 13). Not Available [facility] ([facility]) [address] [facility], [place], [address], 03/05/2020 03:36:03 03/01/2003/02/2020 magne sium, serum or plasm a magnesium 2.2 mg/dL 1.6-2. 3 Not Available [facility] ([facility]) [address] [facility], [place], [address], 03/05/2020 03:36:04 03/01/2003/02/2020 shbg (sex hormo ne-bi nding globu soheila), serum sex horm binding glob, serum 69.4 nmol/ L 19.3-7 6.4 Not Available [facility] ([facility]) [address] [facility], [place], [address], 03/05/2020 03:36:05 03/02/2003/02/2020 elect rocpaco diogr am Rate & Rhythm normal normal Not Available [facility] [address] [place], [address], 03/01/2020 14:31:27 03/02/20 20 03/02/2020 simon maurer am Interpretati on Not Available [facility] [address] [place], [address], 03/01/2020 14:31:27 03/18/20 20 03/19/2020 hepat itis panel (A+B+ C), acute , serum hep A Ab, IgM Negati ve negati ve Not Available [facility] ([facility]) [address] [facility], [place], [address], 03/19/2020 05:37:07 03/18/2003/19/2020 hepat itis panel (A+B+ C), acute , serum HBsAg screen Negati ve negati ve Not Available [facility] ([facility]) [address] [facility], [place], [address], 03/19/2020 05:37:07 03/18/2003/19/2020 hepat itis panel (A+B+ C), acute , serum hep B core Ab, IgM Negati ve negati ve Not Available [facility] ([facility]) [address] [facility], [place], [address], 03/19/2020 05:37:07 03/18/2003/19/2020 hepat itis panel (A+B+ C), acute , serum hep C virus Ab <0.1 s/co_ ratio 0.0-0. 9 Negat daniela: < 0.8 Indet ermin ate: 0.8 - 0.9 Posit daniela: > 0.9 The CDC recom mends that a posit daniela HCV antib roma resul t be follo wed up with a HCV Nucle ic Acid Ampli ficat ion test (5507 13). Not Available [facility] ([facility]) [address] [facility], [place], [address], 03/19/2020 05:37:07 07/15/19 22 07/15/2021 COMP. METAB OLIC PANEL (14) glucose 83 mg/dL 65-99 Not Available [facility] ([facility]) [address] [place], [address], 07/15/2021 16:36:38 07/15/19 22 07/15/2021 COMP. METAB OLIC PANEL (14) BUN 7 mg/dL 6-24 Not Available [facility] ([facility]) [address] [place], [address], 07/15/2021 16:36:38 07/15/19 22 07/15/2021 COMP. METAB OLIC PANEL (14) creatinine 0.70 mg/dL 0.76-1 .27 below low normal Not Available [facility] ([facility]) [address] [facility], [place], [address], 07/15/2021 16:36:38 07/15/19 22 07/15/2021 COMP. METAB OLIC PANEL (14) eGFR 110 mL/mi n/1.7 3 >59 In accor dance with recom menda tions from the NKF-A SN Task force , [facility] has updat ed its eGFR calcu latio n to the 2020 CKD-E PI creat inine equat ion that estim ates kidne y funct ion witho ut a race varia ble. Not Available [facility] ([facility]) [address] [facility], [place], [address], 07/15/2021 16:36:38 07/15/19 22 07/15/2021 COMP. METAB OLIC PANEL (14) BUN/creatini ne ratio 10 9-20 Not Available [facility] ([facility]) [address] [place], [address], 07/15/2021 16:36:38 07/15/19 22 07/15/2021 COMP. METAB OLIC PANEL (14) sodium 138 mmol/ L 134-14 4 Not Available [facility] ([facility]) [address] [place], [address], 07/15/2021 16:36:38 07/15/19 22 07/15/2021 COMP. METAB OLIC PANEL (14) potassium 4.7 mmol/ L 3.5-5. 2 Not Available [facility] ([facility]) [address] [place], [address], 07/15/2021 16:36:38 07/15/19 22 07/15/2021 COMP. METAB OLIC PANEL (14) chloride 99 mmol/ L 96-106 Not Available [facility] ([facility]) [address] [place], [address], 07/15/2021 16:36:38 07/15/19 22 07/15/2021 COMP. METAB OLIC PANEL (14) carbon dioxide, total 23 mmol/ L 20-29 Not Available [facility] ([facility]) [address] [place], [address], 07/15/2021 16:36:38 07/15/19 22 07/15/2021 COMP. METAB OLIC PANEL (14) calcium 9.7 mg/dL 8.7-10 .2 Not Available [facility] ([facility]) [address] [place], [address], 07/15/2021 16:36:38 07/15/19 22 07/15/2021 COMP. METAB OLIC PANEL (14) protein, total 8.0 g/dL 6.0-8. 5 Not Available [facility] ([facility]) [address] [place], [address], 07/15/2021 16:36:38 07/15/19 22 07/15/2021 COMP. METAB OLIC PANEL (14) albumin 5.1 g/dL 3.8-4. 9 above high normal Not Available [facility] ([facility]) [address] [place], [address], 07/15/2021 16:36:38 07/15/19 22 07/15/2021 COMP. METAB OLIC PANEL (14) globulin, total 2.9 g/dL 1.5-4. 5 Not Available [facility] ([facility]) [address] [place], [address], 07/15/2021 16:36:38 07/15/19 22 07/15/2021 COMP. METAB OLIC PANEL (14) A/G ratio 1.8 1.2-2. 2 Not Available [facility] ([facility]) [address] [place], [address], 07/15/2021 16:36:38 07/15/19 22 07/15/2021 COMP. METAB OLIC PANEL (14) bilirubin, total 0.4 mg/dL 0.0-1. 2 Not Available [facility] ([facility]) [address] [place], [address], 07/15/2021 16:36:38 07/15/19 22 07/15/2021 COMP. METAB OLIC PANEL (14) alkaline phosphatase 78 IU/L 44-121 Not Available [facility] ([facility]) [address] [place], [address], 07/15/2021 16:36:38 07/15/19 22 07/15/2021 COMP. METAB OLIC PANEL (14) AST (SGOT) 112 IU/L 0-40 above high normal Not Available [facility] ([facility]) [address] [place], [address], 07/15/2021 16:36:38 07/15/19 22 07/15/2021 COMP. METAB OLIC PANEL (14) ALT (SGPT) 91 IU/L 0-44 above high normal Not Available [facility] ([facility]) [address] [place], [address], 07/15/2021 16:36:38 07/15/19 22 07/15/2021 CBC, PLATE LET, NO DIFFE RENTI AL WBC 7.4 x10e3 /uL 3.4-10 .8 Not Available [facility] ([facility]) [address] [facility], [place], [address], 07/15/2021 16:36:39 07/15/19 22 07/15/2021 CBC, PLATE LET, NO DIFFE RENTI AL RBC 4.23 x10e6 /uL 4.14-5 .80 Not Available [facility] ([facility]) [address] [facility], [place], [address], 07/15/2021 16:36:39 07/15/19 22 07/15/2021 CBC, PLATE LET, NO DIFFE RENTI AL hemoglobin 14.2 g/dL 13.0-1 7.7 Not Available [facility] ([facility]) [address] [facility], [place], [address], 07/15/2021 16:36:39 07/15/19 22 07/15/2021 CBC, PLATE LET, NO DIFFE RENTI AL hematocrit 40.9 % 37.5-5 1.0 Not Available [facility] ([facility]) [address] [facility], [place], [address], 07/15/2021 16:36:39 07/15/19 22 07/15/2021 CBC, PLATE LET, NO DIFFE RENTI AL MCV 97 fL 79-97 Not Available [facility] ([facility]) [address] [facility], [place], [address], 07/15/2021 16:36:39 07/15/19 22 07/15/2021 CBC, PLATE LET, NO DIFFE RENTI AL MCH 33.6 pg 26.6-3 3.0 above high normal Not Available [facility] ([facility]) [address] [facility], [place], [address], 07/15/2021 16:36:39 07/15/19 22 07/15/2021 CBC, PLATE LET, NO DIFFE RENTI AL MCHC 34.7 g/dL 31.5-3 5.7 Not Available [facility] ([facility]) [address] [place], [address], 07/15/2021 16:36:39 07/15/19 22 07/15/2021 CBC, PLATE LET, NO DIFFE RENTI AL RDW 12.8 % 11.6-1 5.4 Not Available [facility] ([facility]) [address] [place], [address], 07/15/2021 16:36:39 07/15/19 22 07/15/2021 CBC, PLATE LET, NO DIFFE RENTI AL platelets 257 x10e3 /uL 150-45 0 Not Available [facility] ([facility]) [address] [place], [address], 07/15/2021 16:36:39 07/15/19 22 07/15/2021 CBC, PLATE LET, NO DIFFE RENTI AL NRBC PACKAGER HAND Not Available [facility] ([facility]) [address] [place], [address], 07/15/2021 16:36:39 07/15/19 22 07/15/2021 LIPID PANEL cholesterol, total 187 mg/dL 100-19 9 Not Available [facility] ([facility]) [address] [place], [address], 07/15/2021 16:36:40 07/15/19 22 07/15/2021 LIPID PANEL triglyceride s 120 mg/dL 0-149 Not Available [facility] ([facility]) [address] [place], [address], 07/15/2021 16:36:40 07/15/19 22 07/15/2021 LIPID PANEL HDL cholesterol 61 mg/dL >39 Not Available [facility] ([facility]) [address] [place], [address], 07/15/2021 16:36:40 07/15/19 22 07/15/2021 LIPID PANEL VLDL cholesterol geovany 21 mg/dL 5-40 Not Available [facility] ([facility]) [address] [place], [address], 07/15/2021 16:36:40 07/15/19 22 07/15/2021 LIPID PANEL LDL chol calc ([facility]) 105 mg/dL 0-99 above high normal Not Available [facility] ([facility]) [address] [place], [address], 07/15/2021 16:36:40 07/15/19 22 07/15/2021 LIPID PANEL comment: PACKAGER HAND Not Available [facility] ([facility]) [address] [place], [address], 07/15/2021 16:36:40 07/15/19 22 07/15/2021 HEPAT IC FUNCT ION PANEL (7) bilirubin, direct 0.16 mg/dL 0.00-0 .40 Not Available [facility] ([facility]) [address] [place], [address], 07/15/2021 16:36:40 07/15/19 22 07/15/2021 THYRO ID PANEL WITH TSH TSH 1.460 uIU/m L 0.450- 4.500 Not Available [facility] ([facility]) [address] [place], [address], 07/15/2021 16:36:41 07/15/19 22 07/15/2021 THYRO ID PANEL WITH TSH thyroxine (T4) 7.4 ug/dL 4.5-12 .0 Not Available [facility] ([facility]) [address] [place], [address], 07/15/2021 16:36:41 07/15/19 22 07/15/2021 THYRO ID PANEL WITH TSH T3 uptake 27 % 24-39 Not Available [facility] ([facility]) [address] [place], [address], 07/15/2021 16:36:41 07/15/19 22 07/15/2021 THYRO ID PANEL WITH TSH free thyroxine index 2.0 1.2-4. 9 Not Available [facility] ([facility]) [address] [place], [address], 07/15/2021 16:36:41 07/15/19 22 07/15/2021 IRON AND TIBC iron bind.cap.(TI BC) 370 ug/dL 250-45 0 Not Available [facility] ([facility]) [address] [place], [address], 07/15/2021 16:36:42 07/15/19 22 07/15/2021 IRON AND TIBC UIBC 266 ug/dL 111-34 3 Not Available [facility] ([facility]) [address] [place], [address], 07/15/2021 16:36:42 07/15/19 22 07/15/2021 IRON AND TIBC iron 104 ug/dL 38-169 Not Available [facility] ([facility]) [address] [place], [address], 07/15/2021 16:36:42 07/15/19 22 07/15/2021 IRON AND TIBC iron saturation 28 % 15-55 Not Available [facility] ([facility]) [address] [place], [address], 07/15/2021 16:36:42 07/15/19 22 07/14/2021 PSA TOTAL (REFL EX TO FREE) reflex criteria Commen t The perce nt free PSA is perfo rmed on a refle x basis only when the total PSA is betwe en 4.0 and 10.0 ng/mL . Not Available [facility] ([facility]) [address] [place], [address], 07/15/2021 16:36:42 07/15/19 22 07/15/2021 PSA TOTAL (REFL EX TO FREE) prostate specific Ag 0.3 NG/mL 0.0-4. 0 Thomas ECLIA metho dolog y. Accor ding to the Ameri can Urolo gical Assoc iatio n, Serum PSA shoul d decre ase and remai n at undet ectab le level s after radic al prost atect shyla. The AUA defin es bioch emica l recur rence as an initi al PSA value 0.2 ng/mL or great er follo wed by a subse quent confi rmato ry PSA value 0.2 ng/mL or great er. Value s obtai jennifer with diffe rent assay metho ds or kits canno t be used inter solomon eably . Resul ts canno t be inter prete d as absol [place] evide nce of the prese nce or absen ce of evert [place] se. Not Available [facility] ([facility]) [address] [facility], [place], [address], 07/15/2021 16:36:42 07/15/19 22 07/15/2021 HEMOG LOBIN A1C hemoglobin A1C 5.3 % 4.8-5. 6 Predi abete s: 5.7 - 6.4 Diabe jolynn: >6.4 Glyce tracie contr ol for adult s with diabe jolynn: <7.0 Not Available [facility] ([facility]) [address] [facility], [place], [address], 07/15/2021 16:36:43 07/15/19 22 07/15/2021 FOLAT E (FOLI C ACID) , SERUM folate (folic acid), serum 14.0 NG/mL >3.0 A serum folat e margarita ntrat ion of less than 3.1 ng/mL is consi dered to repre sent clini geovany defic iency . Not Available [facility] ([facility]) [address] [facility], [place], [address], 07/15/2021 16:36:43 07/15/19 22 07/15/2021 VITAM IN B12 vitamin B12 546 pg/mL 232-12 45 Not Available [facility] ([facility]) [address] [place], [address], 07/15/2021 16:36:44 07/15/19 22 07/15/2021 NEEL TIN ferritin 351 NG/mL 30-400 Not Available [facility] ([facility]) [address] [place], [address], 07/15/2021 16:36:45 07/15/19 22 07/15/2021 RETIC ULOCY TE COUNT reticulocyte count 1.2 % 0.6-2. 6 Not Available [facility] ([facility]) [address] [place], [address], 07/15/2021 16:36:45 01/20/20 25 01/20/2025 FE+TI BC+FE R iron bind.cap.(TI BC) 320 ug/dL 250-45 0 normal Not Available [facility] ([facility]) [address] [place], [address], 01/20/2025 12:36:56 01/20/20 25 01/20/2025 FE+TI BC+FE R UIBC 207 ug/dL 111-34 3 normal Not Available [facility] ([facility]) [address] [place], [address], 01/20/2025 12:36:56 01/20/20 25 01/20/2025 FE+TI BC+FE R iron 113 ug/dL 38-169 normal Not Available [facility] ([facility]) [address] [place], [address], 01/20/2025 12:36:56 01/20/20 25 01/20/2025 FE+TI BC+FE R iron saturation 35 % 15-55 normal Not Available [facility] ([facility]) [address] [place], [address], 01/20/2025 12:36:56 01/20/2001/20/2025 FE+TI BC+FE R ferritin 242 NG/mL 30-400 normal Not Available [facility] ([facility]) [address] [place], [address], 01/20/2025 12:36:56 01/20/2001/20/2025 TSH+F REE T4 TSH 4.370 uIU/m L 0.450- 4.500 normal Not Available [facility] ([facility]) [address] [place], [address], 01/20/2025 12:36:57 01/20/2001/20/2025 TSH+F REE T4 T4,free(dire ct) 0.96 NG/dL 0.82-1 .77 normal Not Available [facility] ([facility]) [address] [place], [address], 01/20/2025 12:36:57 01/20/2001/20/2025 CBC WITH DIFFE RENTI AL/PL ATELE T WBC 7.5 x10e3 /uL 3.4-10 .8 normal Not Available [facility] ([facility]) [address] [place], [address], 01/20/2025 12:36:57 01/20/2001/20/2025 CBC WITH DIFFE RENTI AL/PL ATELE T RBC 4.12 x10e6 /uL 4.14-5 .80 below low normal Not Available [facility] ([facility]) [address] [place], [address], 01/20/2025 12:36:57 01/20/20 25 01/20/2025 CBC WITH DIFFE RENTI AL/PL ATELE T hemoglobin 14.4 g/dL 13.0-1 7.7 normal Not Available [facility] ([facility]) [address] [place], [address], 01/20/2025 12:36:57 01/20/20 25 01/20/2025 CBC WITH DIFFE RENTI AL/PL ATELE T hematocrit 42.8 % 37.5-5 1.0 normal Not Available [facility] ([facility]) [address] [facility], [place], [address], 01/20/2025 12:36:57 01/20/20 25 01/20/2025 CBC WITH DIFFE RENTI AL/PL ATELE T MCV 104 fL 79-97 above high normal Not Available [facility] ([facility]) [address] [facility], [place], [address], 01/20/2025 12:36:57 01/20/20 25 01/20/2025 CBC WITH DIFFE RENTI AL/PL ATELE T MCH 35.0 pg 26.6-3 3.0 above high normal Not Available [facility] ([facility]) [address] [place], [address], 01/20/2025 12:36:57 01/20/20 25 01/20/2025 CBC WITH DIFFE RENTI AL/PL ATELE T MCHC 33.6 g/dL 31.5-3 5.7 normal Not Available [facility] ([facility]) [address] [place], [address], 01/20/2025 12:36:57 01/20/20 25 01/20/2025 CBC WITH DIFFE RENTI AL/PL ATELE T RDW 12.8 % 11.6-1 5.4 Not Available [facility] ([facility]) [address] [place], [address], 01/20/2025 12:36:57 01/20/20 25 01/20/2025 CBC WITH DIFFE RENTI AL/PL ATELE T platelets 197 x10e3 /uL 150-45 0 normal Not Available [facility] ([facility]) [address] [facility], [place], [address], 01/20/2025 12:36:57 01/20/20 25 01/20/2025 CBC WITH DIFFE RENTI AL/PL ATELE T neutrophils 63 % not estab. normal Not Available [facility] ([facility]) [address] [facility], [place], [address], 01/20/2025 12:36:57 01/20/20 25 01/20/2025 CBC WITH DIFFE RENTI AL/PL ATELE T lymphs 24 % not estab. normal Not Available [facility] ([facility]) [address] [facility], [place], [address], 01/20/2025 12:36:57 01/20/20 25 01/20/2025 CBC WITH DIFFE RENTI AL/PL ATELE T monocytes 11 % not estab. normal Not Available [facility] ([facility]) [address] [facility], [place], [address], 01/20/2025 12:36:57 01/20/20 25 01/20/2025 CBC WITH DIFFE RENTI AL/PL ATELE T eos 1 % not estab. normal Not Available [facility] ([facility]) [address] [facility], [place], [address], 01/20/2025 12:36:57 01/20/20 25 01/20/2025 CBC WITH DIFFE RENTI AL/PL ATELE T basos 1 % not estab. normal Not Available [facility] ([facility]) [address] [facility], [place], [address], 01/20/2025 12:36:57 01/20/20 25 01/20/2025 CBC WITH DIFFE RENTI AL/PL ATELE T immature cells PACKAGER HAND Not Available [facility] ([facility]) [address] [facility], [place], [address], 01/20/2025 12:36:57 01/20/20 25 01/20/2025 CBC WITH DIFFE RENTI AL/PL ATELE T neutrophils (absolute) 4.7 x10e3 /uL 1.4-7. 0 normal Not Available [facility] ([facility]) [address] [facility], [place], [address], 01/20/2025 12:36:57 01/20/20 25 01/20/2025 CBC WITH DIFFE RENTI AL/PL ATELE T lymphs (absolute) 1.8 x10e3 /uL 0.7-3. 1 normal Not Available [facility] ([facility]) [address] [place], [address], 01/20/2025 12:36:57 01/20/20 25 01/20/2025 CBC WITH DIFFE RENTI AL/PL ATELE T monocytes(ab solute) 0.8 x10e3 /uL 0.1-0. 9 normal Not Available [facility] ([facility]) [address] [facility], [place], [address], 01/20/2025 12:36:57 01/20/20 25 01/20/2025 CBC WITH DIFFE RENTI AL/PL ATELE T eos (absolute) 0.1 x10e3 /uL 0.0-0. 4 normal Not Available [facility] ([facility]) [address] [place], [address], 01/20/2025 12:36:57 01/20/20 25 01/20/2025 CBC WITH DIFFE RENTI AL/PL ATELE T baso (absolute) 0.1 x10e3 /uL 0.0-0. 2 normal Not Available [facility] ([facility]) [address] [place], [address], 01/20/2025 12:36:57 01/20/20 25 01/20/2025 CBC WITH DIFFE RENTI AL/PL ATELE T immature granulocytes 0 % not estab. Not Available [facility] ([facility]) [address] [facility], [place], [address], 01/20/2025 12:36:57 01/20/20 25 01/20/2025 CBC WITH DIFFE RENTI AL/PL ATELE T immature grans (abs) 0.0 x10e3 /uL 0.0-0. 1 Not Available [facility] ([facility]) [address] [facility], [place], [address], 01/20/2025 12:36:57 01/20/20 25 01/20/2025 CBC WITH DIFFE RENTI AL/PL ATELE T NRBC PACKAGER HAND Not Available [facility] ([facility]) [address] [facility], [place], [address], 01/20/2025 12:36:57 01/20/20 25 01/20/2025 CBC WITH DIFFE RENTI AL/PL ATELE T hematology comments: PACKAGER HAND Not Available [facility] ([facility]) [address] [facility], [place], [address], 01/20/2025 12:36:57 01/20/20 25 01/20/2025 COMP. METAB OLIC PANEL (14) glucose COMMEN T mg/dL Test not perfo rmed. Serum was in conta ct with cells when recei parish which will make the resul t inacc urate . Not Available [facility] ([facility]) [address] [facility], [place], [address], 01/20/2025 12:36:58 01/20/20 25 01/20/2025 COMP. METAB OLIC PANEL (14) BUN 4 mg/dL 6-24 below low normal Not Available [facility] ([facility]) [address] [facility], [place], [address], 01/20/2025 12:36:58 01/20/20 25 01/20/2025 COMP. METAB OLIC PANEL (14) creatinine 0.46 mg/dL 0.76-1 .27 below low normal Not Available [facility] ([facility]) [address], [place], [address], 01/20/2025 12:36:58 01/20/20 25 01/20/2025 COMP. METAB OLIC PANEL (14) eGFR 122 mL/mi n/1.7 3 >59 normal Not Available [facility] ([facility]) [address] [facility], [place], [address], 01/20/2025 12:36:58 01/20/20 25 01/20/2025 COMP. METAB OLIC PANEL (14) BUN/creatini ne ratio 9 9-20 normal Not Available [facility] ([facility]) [address] [facility], [place], [address], 01/20/2025 12:36:58 01/20/20 25 01/20/2025 COMP. METAB OLIC PANEL (14) sodium 140 mmol/ L 134-14 4 normal Not Available [facility] ([facility]) [address] [facility], [place], [address], 01/20/2025 12:36:58 01/20/20 25 01/20/2025 COMP. METAB OLIC PANEL (14) potassium COMMEN T mmol/ L Test not perfo rmed. Serum was in conta ct with cells when recei parish which will make the resul t inacc urate . Not Available [facility] ([facility]) [address] [facility], [place], [address], 01/20/2025 12:36:58 01/20/20 25 01/20/2025 COMP. METAB OLIC PANEL (14) chloride 99 mmol/ L 96-106 normal Not Available [facility] ([facility]) [address] [facility], [place], [address], 01/20/2025 12:36:58 01/20/20 25 01/20/2025 COMP. METAB OLIC PANEL (14) carbon dioxide, total 21 mmol/ L 20-29 normal Not Available [facility] ([facility]) [address] [place], [address], 01/20/2025 12:36:58 01/20/2001/20/2025 COMP. METAB OLIC PANEL (14) calcium 8.9 mg/dL 8.7-10 .2 normal Not Available [facility] ([facility]) [address] [place], [address], 01/20/2025 12:36:58 01/20/2001/20/2025 COMP. METAB OLIC PANEL (14) protein, total 7.6 g/dL 6.0-8. 5 normal Not Available [facility] ([facility]) [address] [place], [address], 01/20/2025 12:36:58 01/20/20 25 01/20/2025 COMP. METAB OLIC PANEL (14) albumin 4.3 g/dL 3.8-4. 9 normal Not Available [facility] ([facility]) [address] [place], [address], 01/20/2025 12:36:58 01/20/2001/20/2025 COMP. METAB OLIC PANEL (14) globulin, total 3.3 g/dL 1.5-4. 5 Not Available [facility] ([facility]) [address] [place], [address], 01/20/2025 12:36:58 01/20/2001/20/2025 COMP. METAB OLIC PANEL (14) bilirubin, total 0.8 mg/dL 0.0-1. 2 normal Not Available [facility] ([facility]) [address] [place], [address], 01/20/2025 12:36:58 01/20/20 25 01/20/2025 COMP. METAB OLIC PANEL (14) alkaline phosphatase 214 IU/L 44-121 above high normal Eff ectiv e Septe mber 2024 Alkal ine Phosp hatas e refer ence inter hector will be solomon ing to: Age Male Femal e 0 - 5 days 47 - 127 47 - 127 6 - 10 days 29 - 242 29 - 242 11 - 20 days 109 - 357 109 - 357 21 - 30 days 94 - 494 94 - 494 1 - 2 month s 149 - 539 149 - 539 3 - 6 month s 131 - 452 131 - 452 7 - 11 month s 117 - 401 117 - 401 12 month s - 6 years 158 - 369 158 - 369 7 - 12 years 150 - 409 150 - 409 13 years 156 - 435 78 - 227 14 years 114 - 375 64 - 161 15 years 88 - 279 56 - 134 16 years 74 - 207 51 - 121 17 years 63 - 161 47 - 113 18 - 20 years 51 - 125 42 - 106 21 - 50 years 47 - 123 41 - 116 51 - 80 years 49 - 135 51 - 125 >80 years 48 - 129 48 - 129 Not Available [facility] ([facility]) [address] [place], [address], 01/20/2025 12:36:58 01/20/20 25 01/20/2025 COMP. METAB OLIC PANEL (14) AST (SGOT) 121 IU/L 0-40 above high normal Not Available [facility] ([facility]) [address] [place], [address], 01/20/2025 12:36:58 01/20/20 25 01/20/2025 COMP. METAB OLIC PANEL (14) ALT (SGPT) 29 IU/L 0-44 normal Not Available [facility] ([facility]) [address] [place], [address], 01/20/2025 12:36:58 01/20/20 25 01/20/2025 VITAM IN B12 AND FOLAT E vitamin B12 716 pg/mL 232-12 45 normal Not Available [facility] ([facility]) [address] [place], [address], 01/20/2025 12:36:59 01/20/20 25 01/20/2025 VITAM IN B12 AND FOLAT E folate (folic acid), serum 14.4 NG/mL >3.0 normal A serum folat e margarita ntrat ion of less than 3.1 ng/mL is consi dered to repre sent clini geovany defic iency . Not Available [facility] ([facility]) [address] [facility], [place], [address], 01/20/2025 12:36:59 01/20/2001/20/2025 HEMOG LOBIN A1C hemoglobin A1C 5.3 % 4.8-5. 6 normal Predi abete s: 5.7 - 6.4 Diabe jolynn: >6.4 Glyce tracie contr ol for adult s with diabe jolynn: <7.0 Not Available [facility] ([facility]) [address] [facility], [place], [address], 01/20/2025 12:37:00 01/20/2001/20/2025 VITAM IN D, 25-HY DROXY vitamin D, 25-hydroxy 40.7 NG/mL 30.0-1 00.0 Vitam in D defic iency has been defin ed by the Insti tute of Medic ine and an Endoc e Socie ty pract ice guide line as a level of serum 25-OH vitam in D less than 20 ng/mL (1,2) . The Endoc rine Socie ty went on to [facility] er defin e vitam in D insuf ficie ncy as a level betwe en 21 and 29 ng/mL (2). 1. IOM (Inst itute of Medic ine). 2010. Dieta ry refer ence intak es for calci um and D. Shawn gallegos [place]: The Natio nal [facility] Press . 2. Marilyn gonsalez MF, Dipti cruz [place], Willem off-F michael i YEUNG, et al. Evalu ation , treat ment, and preve ntion of vitam in D defic iency : an Endoc rine Socie ty clini geovany pract ice guide line. JCEM. 2010; 96(7) :1911 -30. Not Available [facility] ([facility]) [address] [facility], [place], [address], 01/20/2025 12:37:01 01/20/20 25 01/20/2025 MAGNE SIUM magnesium 2.0 mg/dL 1.6-2. 3 normal Not Available [facility] ([facility]) [address] [facility], [place], [address], 01/20/2025 12:37:01 09/27/19 18 09/26/2017 XR, shoul nando, 2 or more view No observ ation [facility] ed. [facility] [address] [place], [address], 09/27/2017 09:58:30 03/03/20 20 03/01/2020 elect rocar diogr am No observ ation record ed. BARCODE [facility] [address] [place], [address], 03/03/2020 10:24:43 03/03/20 20 03/01/2020 elect rocar diogr am No observ ation record ed. [email or web address] [place] [address] [address] [place], [address], 03/03/2020 13:43:39 01/23/[address], head, w/o contr ast No observ ation record ed. [address], [place], [address], 01/27/2025 13:05:34 Result Notes None recorded. Problems Name Problem SNOMED Code Status Onset Date Resolution Date Notes Provider Name and Address Organization Details Recorded Time Hypertensive disorder 67897986 Active 2016 MOHAMUD Rojas - [facility] 14:17:22 Hyperlipidemi a 38508395 Active 2016 MOHAMUD Rojas - [facility] 7 14:17:33 Pain of shoulder region 58040651 Active 2016 David Tobin MD [address], [place], [address] , [place] - [facility] 7 20:36:14 Neck pain 84034248 Active 2016 David Tobin MD [address], [place], [address] , [place] - [facility] 7 20:36:47 Acquired hypothyroidis m 641700340 Active 2017 Lori Salcedo null, [place] - [facility] 8 14:17:03 Initial insomnia 16621653 Active 2017 Lori Salcedo null, [place] - [facility] 8 17:54:02 Conduction disorder of the heart 45991726 Active 2019 Faustina Saint Joseph null, [place] - [facility] 0 14:31:32 Nicotine dependence 30711379 Active 2019 Faustina Saint Joseph null, [place] - [facility] 0 15:26:29 Complaining of erectile dysfunction Active 2019 Faustina Saint Joseph null, [place] - [facility] 0 15:26:30 Liver enzymes outside reference range 663318704 Active 2019 Faustina Saint Joseph null, [place] - [facility] 0 11:09:08 Harmful pattern of use of alcohol 10207905 Active 2019 Faustina Saint Joseph null, [place] - [facility] 0 11:09:11 Anemia 238066948 Active 2021 Faustina Saint Joseph null, [place] - [facility] 2 08:57:52 Decreased hearing 406087229 Active 2024 Crystal Holly null, [place] - [facility] 5 08:15:15 Near syncope 047034595 Active 2024 Marjan Call, KENDRA [address], [place], [address] , [place] - [facility] 5 08:37:06 Alcohol use disorder Active 2024 Marjan Call, OCCUPATIONAL THERAPY PROFESSOR [address], [place], [address] , [place] - [facility] 08:38:18 Problem Notes None recorded. Procedures Surgical History Date Name Laterality Status Provider Name and Address Organization Details Recorded Time Colonoscopy completed Josefina Craballo [place] - [facility] 12/28/2016 14:18:40 Holster elec/combo vad, rep completed Josefina Carballo [place] - [facility] 12/28/2016 14:19:07 Imaging Results None recorded. Procedure Notes None recorded. Medical Equipment None Reported. Allergies Allergen ID Allergen Name Allergen Category Reaction Reaction Severity Criticality Documentation Date Start Date Code Code System Note Provider Name and Address Organization Details Recorded Time 40453 acetamino phen / hydrocodo ne medicatio n Not available Not available Not available 02/18/20162007 36477 2 RxNorm Not Available [facility] 6 08:28:18 56078 naproxen medicatio n itching Not available Not available 02/18/20162007 7258 RxNorm Not Available [facility] 6 10:03:26 Medications Name Sig Start Date Stop Date Status Note LastModified by Organization Details LastModified Time cyclobenz aprine 10 mg tablet TAKE 1 TABLET BY MOUTH EVERY 8 HOURS NEEDED FOR MUSCLE SPASM 01/19 completed Not Available Not Available Not Available latanopro st 0.005 % eye drops INSTILL 1 DROP INTO EACH EYE EVERY DAY AT BEDTIME active Not Available Not Available No t Available Augmentin 875 mg-125 mg tablet take 1 tablet by oral route 2 times a day for 10 days 01/09 completed Augmenti n 875-125 mg oral tablet;P rescribe Status: Prescrib ed on: 12/31/19 16 5:38PM;U ser: neuss;Es t. Completi on: 01/10/20 16;Indic ation: Hand edema - (782.3); Pharmacy Verified : 12/31/19 16 5:38PM Not Available Not Available Not Available atorvasta tin 20 mg tablet TAKE 1 TABLET BY MOUTH ONCE DAILY 01/19 completed Not Available Not Available Not Available Celestone Soluspan 6 mg/mL suspensio n for injection give 6 mg IM please 01/24 completed Not Available Not Available Not Available lisinopri l 20 mg tablet take 1 tablet (20 mg) by oral route once daily 11/28 completed lisinopr il 20 mg oral tablet;c omment: cough;Re corded Status: Recorded on: 03/28/20 13 8:51AM;D iscontin ued Status: Disconti nued on: 11/29/19 14 11:39AM; User: neuss;In dication : Hyperten izzy - (07.4019 00) Not Available Not Available Not Available Medrol ([place]) 4 mg tablets in a dose pack take as directed for 6 days 01/05 completed Medrol ([place]) 4 mg oral tablets, dose pack;Pre scribe Status: Prescrib ed on: 12/31/19 16 5:38PM;U ser: neuss;Es t. Completi on: 01/06/20 16;Indic ation: Hand pain, left - (729.5); Pharmacy Verified : 12/31/19 16 5:38PM Not Available Not Available Not Available prednison e 20 mg tablet 03/01 completed Not Available Not Available Not Available clobetaso l 0.05 % topical cream 03/01 completed Not Available Not Available Not Available aspirin 81 mg tablet,de layed release take 1 tablet (81 mg) by oral route once daily 04/27 completed aspirin 81 mg oral tablet,d elayed release (/DANG); Recorded Status: Recorded on: 03/28/20 13 9:39AM;U ser: neuss;Es t. Completi on: 04/27/20 13 Not Available Not Available Not Available tramadol 50 mg tablet TAKE 1 TABLET BY MOUTH THREE TIMES DAILY NEEDED FOR PAIN 01/19 completed Not Available Not Available Not Available Depo-Medr ol 80 mg/mL suspensio n for injection Take 1 mL by injectio n route. 03/18 completed Not Available Not Available Not Available levothyro xine 75 mcg tablet Take 1 tablet every day by oral route. 03/01 completed Not Available Not Available Not Available prednisol one acetate 1 % eye drops,prince pension 03/01 completed Not Available Not Available Not Available Celexa 20 mg tablet take 1 tablet (20 mg) by oral route once daily 12/15 completed Celexa 20 mg oral tablet;R ecorded Status: Recorded on: 11/01/19 14 8:13PM;D iscontin ued Status: Disconti nued on: 12/16/19 15 11:11AM; User: monique;Luisa Daniel on: 04/29/20 14 Not Available Not Available Not Available meclizine 25 mg tablet take 1 tablet (25 mg) by oral route 3 times per day as needed for vertigo 02/01 completed meclizin e 25 mg oral tablet;P rescribe Status: Prescrib ed on: 11/12/19 13 10:58AM; Disconti nued Status: Disconti nued on: 02/02/20 13 9:20AM;U ser: gored;Luisa ward Completi on: 12/02/19 13;Pharm acyVerif ied: 11/12/19 13 10:58AM Not Available Not Available Not Available levothyro xine 50 mcg tablet TAKE 1 TABLET BY MOUTH ONCE DAILY 01/19 completed Not Available Not Available Not Available simvastat in 20 mg tablet TAKE ONE TABLET BY MOUTH AT BEDTIME 12/28 completed simvasta tin 20 mg oral tablet;P rescribe Status: Prescrib ed on: 04/12/20 15 8:22AM;U ser: neuss Not Available Not Available Not Available trazodone 150 mg tablet TAKE ONE TABLET BY MOUTH ONCE DAILY AT BEDTIME NEEDED FOR SLEEP 12/28 completed trazodon e 150 mg oral tablet;P rescribe Status: Prescrib ed on: 04/12/20 15 1:25PM;U ser: neuss Not Available Not Available Not Available Prozac 20 mg capsule take 1 capsule (20 mg) by oral route once daily in the morning for 30 days 10/31 completed Prozac 20 mg oral capsule; Recorded Status: Recorded on: 03/28/20 13 9:31AM;D iscontin ued Status: Disconti nued on: 11/01/19 14 4:01PM;U ser: neuss;Es gloria. Completi on: 09/25/19 14;Indic ation: Major Depressi ve Disorder - (2962 00) Not Available Not Available Not Available brimonidi ne 0.2 % eye drops INSTILL 1 DROP INTO EACH EYE TWICE DAILY 01/19 completed Not Available Not Available Not Available gabapenti n 300 mg capsule Take 1 capsule by oral route for 30 days. 03/01 completed Not Available Not Available Not Available diclofena c sodium 50 mg tablet,de layed release Take 1 tablet twice a day by oral route. 09/26 completed Not Available Not Available Not Available alprazola m 2 mg tablet take 1 tablet by oral route 1 hour before schedule s procedur e 12/30 completed alprazol am 2 mg oral tablet;R ecorded Status: Recorded on: 10/26/19 16 4:14PM;D iscontin ued Status: Disconti nued on: 12/31/19 16 4:41PM;U ser: neuss;Es t. Completi on: 10/27/19 16;Indic ation: Anxiety - (3000 00) Not Available Not Available Not Available ergocalci ferol (vitamin D2) 1,250 mcg (50,000 unit) capsule TAKE 1 CAPSULE BY MOUTH TWICE A WEEK 01/19 completed Not Available Not Available Not Available Tylenol-C odeine #3 300 mg-30 mg tablet take 1 tablet by oral route Q6H PRN 02/15 completed Tylenol- Codeine #3 300-30 mg oral tablet;R ecorded Status: Recorded on: 01/17/20 14 3:00PM;U ser: neuss;Es t. Completi on: 02/16/20 14;Indic ation: Pain - (167454 00) Not Available Not Available Not Available prednison e 5 mg tablets in a dose pack Take 1 dose pk every day by oral route as directed . 09/26 completed Not Available Not Available Not Available timolol maleate 0.5 % eye drops INSTILL 1 DROP INTO EACH EYE TWICE DAILY active Not Available Not Available No t Available ketorolac 60 mg/2 mL intramusc ular solution give 60 mg IM please 01/24 completed Not Available Not Available Not Available atropine 1 % eye drops 03/01 completed Not Available Not Available Not Available losartan 100 mg tablet TAKE ONE TABLET BY MOUTH ONCE DAILY IN PLACE OF LISINOPR [place] 12/28 completed losartan 100 mg oral tablet;P rescribe Status: Prescrib ed on: 03/24/20 15 7:51AM;U ser: neuss Not Available Not Available Not Available Ambien 5 mg tablet Take 1 tablet every day by oral route at bedtime. 03/01 completed Not Available Not Available Not Available Ambien 10 mg tablet take 1 tablet (10 mg) by oral route once daily at bedtime for 30 days 04/14 completed Ambien 10 mg oral tablet;R ecorded Status: Recorded on: 12/16/19 15 11:37AM; User: Shin tNiall Daniel on: 04/14/20 15;Indic ation: Sleep-On set Insomnia - (16.7805 90) Not Available Not Available Not Available dorzolami de 2 % eye drops 03/01 completed Not Available Not Available Not Available Bactrim DS 800 mg-160 mg tablet take 1 tablet by oral route every 12 hours for 10 days 02/01 completed Bactrim DS 800-160 mg oral tablet;P rescribe Status: Prescrib ed on: 11/21/19 13 4:23PM;D iscontin ued Status: Disconti nued on: 02/02/20 13 9:20AM;U ser: bakerc;E st. Completi on: 12/01/19 13;Pharm acyVerif ied: 11/21/19 13 4:23PM Not Available Not Available Not Available brimonidi ne 0.1 % eye drops INSTILL 1 INTO EACH EYE TWICE DAILY 01/19 completed Not Available Not Available Not Available lisinopri l-hydroch lorothiaz dinora 1 qd 03/28 completed lisinopr il/hctz ;Re corded Status: Recorded on: 06/11/19 10 4:17PM;D iscontin ued Status: Disconti nued on: 03/28/20 13 8:41AM;U ser: k; Est. Completi on: 08/11/19 10;Indic ation: htn - (-5) Not Available Not Available Not Available tramadol 1 tid 10/11 completed tramodol 50 mg;Recor ded Status: Recorded on: 02/04/20 15 12:38PM; Disconti nued Status: Disconti nued on: 10/12/19 16 7:38PM;U ser: markesbe ryh;Est. Completi on: 02/11/20 15;Indic ation: - (-5) Not Available Not Available Not Available Robaxin 1 tid 11/11 completed robaxin 750 mg;Recor ded Status: Recorded on: 11/08/19 11 4:09PM;D iscontin ued Status: Disconti nued on: 11/12/19 13 9:51AM;U ser: markesbe ryh;Est. Completi on: 12/08/19 11;Indic ation: - (-5) Not Available Not Available Not Available Flexeril 1 tid 08/30 completed flexeril 10 mg;Recor ded Status: Recorded on: 02/04/20 15 12:38PM; Disconti nued Status: Disconti nued on: 08/31/19 16 2:10PM;U ser: markesbe ryh;Est. Completi on: 02/11/20 15;Indic ation: - (-5) Not Available Not Available Not Available Nexium active Not Available Not Availa ble Not Available brimonidi ne 0.2 %-timolol 0.5 % eye drops INSTILL 1 DROP INTO EACH EYE TWICE DAILY active Not Available Not Available No t Available Vitals Date Recorded Body weight Heart rate Oxygen saturation Respiratory rate Systolic And Diastolic Provider Name and Address Organization Details Last Updated DateTime 2 30420.7 7 g 80 /min 98 % 18 /min 138/82 mm[Hg] Crystal September [place] - [facility] 2 08:31:56 Date Recorded Body height Body mass index (BMI) Body weight Heart rate Oxygen saturation Respiratory rate Systolic And Diastolic Provider Name and Address Organization Details Last Updated DateTime 8 177.8 cm 29 kg/m2 50490.6 6 g 68 /min 98 % 18 /min 120/76 mm[Hg] Crystal Holly [place] - [facility] 8 15:13:36 Date Recorded Body height Body mass index (BMI) Body weight Heart rate Oxygen saturation Respiratory rate Pain severity - 0-10 verbal numeric rating [Score] - Reported Systolic And Diastolic Provider Name and Address Organization Details Last Updated DateTime 5 177.8 cm 25.7 kg/m2 28827.0 3 g 63 /min 98 % 18 /min 3 126/82 mm[Hg] Crystal Holly [place] - [facility] 5 08:19:37 Date Recorded Body weight Body temperature Respiratory rate Oxygen saturation Heart rate Systolic And Diastolic Provider Name and Address Organization Details Last Updated DateTime 0 76057.2 1 g 98 [degF] 18 /min 98 % 76 /min 124/74 mm[Hg] Shruthi Sharp [place] - [facility] 0 14:13:46 Date Recorded Body weight Body temperature Respiratory rate Oxygen saturation Heart rate Provider Name and Address Organization Details Last Updated DateTime 0 66317.0 3 g 98.2 [degF] 18 /min 97 % 77 /min Shruthi Sharp [place] - [facility] 0 10:38:31 Social History Question Answer Notes LastModified by [employer] Details LastModified Time Tobacco Smoking Status Never Smoker MOHAMUD Rojas - [facility] 12/28/2016 14:18:13 What Was The Date Of Your Most Recent Tobacco Screening? 01/19/2025 Information not available 01/19/2025 Has Tobacco Cessation Counseling Been Provided? Yes Information not available 01/19/2025 On What Date Was Tobacco Cessation Counseling Provided? 01/19/2025 Information not available 01/19/2025 Sex: Male Functional Status Question Answer Note LastModified by [employer] Details LastModified Time Do you use any illicit or recreational drugs? No Information not available 01/19/2025 Do you or have you ever used any other forms of tobacco or nicotine? Yes Information not available 01/19/2025 Do you or have you ever used smokeless tobacco? Currently chews tobacco Information not available 01/19/2025 Do you or have you ever used e-cigarettes or vape? Never used electronic cigarettes Information not available 01/19/2025 Mental Status None recorded. Family History Nothing Reported Notes:Poor Historian Medical History No medical history recorded. Immunizations Vaccine Type Date Status Note Provider Nam e and Address Organization Details Recorded Time Td (adult), 2 Lf tetanus toxoid, preservative free, adsorbed 7 completed Not Available [facility] 01/19/2025 08:09:19 Tdap 3 completed Not Available [facility] 01/19/2025 08:09:19 influenza, unspecified formulation 3 completed Not Available [facility] 06/14/2019 02:21:32 influenza, unspecified formulation 4 completed Not Available [facility] 06/14/2019 02:21:32 Tdap 3 completed Not Available [facility] 06/14/2019 02:21:32 Past Encounters Encounter ID Performer Location Encounter Start Date Encounter Closed Date Diagnosis/Indication Diagnosis SNOMED-CT Code Diagnosis ICD10 Code Diagnosis IMO Codes Diagnosis Note [id number] David Tobin MD [place] [address] [place] [address] 12/28/2016 13:59:38 12/28/2016 16:06:53 Body mass index 30+ - obesity 001141882 Z68.39 Pain of sh [place]ulder region 93363044 M25.512 Hyperlipidemia 10214101 E78.5 Hypertensive disorder 38 359042 I10 Neck pain 26129404 M54.2 [id number] Martin Richards MD [place] [address] [place] [address] 07/09/2017 16:12:45 07/09/2017 19:57:31 Chest pain 76378853 R07.9 Family his tory of diabetes mellitus type 2 950945899 Z83.3 Tremor 71440783 R25.1 Headache 47117220 R51 [id number] Martin Richards MD [place] [address] [place] [address] 09/26/2017 15:02:58 09/26/2017 16:32:34 Acquired hypothyroidism 989434745 E03.9 Hypertensive disorder 38 559985 I10 Hyperlipidemia 89685683 E78.5 Pain of sh oulder region 09538957 M25.511 Body mass index 25-29 - overweight 742350672 Z68.29 Pruritic rash 30544168 L 28.2 Chronic neck pain 099908 0364 107 M54.2 Insomnia 183435815 G47.0 0 [id number] Faustina Sharma Pending sale to [facility] [address] [place], [place] [address] [place] [place] [address] 03/01/2020 13:52:24 03/01/2020 16:06:23 Paresthesia of lower extremity 875821290 R20.2 bilaterall y Paresthesi a of upper limb 12521615 R20.2 bilaterall y Fatigue 88077364 R53.83 Dizziness 385071307 R42 at times Acquired hypothyroidism 677755192 E03.9 is on no medication Hyperlipidemia 96298593 E78.5 is on no medication Conduction disorder of the heart 03935426 I45.9 Viral screening 67039151 4 Z11.59 Screening for malignant neoplasm of prostate 921052658 Z12.5 Complainin g of erectile dysfunction 271536390 N52.9 Nicotine dependence 5629 4008 F17.200 Pain of mu ltiple joints 56265026 M25.50 [id number] Faustina Sharma Pending sale to [facility] [address] [place], [place] [address] [place] [address] 03/18/2020 10:05:37 03/18/2020 11:11:41 Vitamin D deficiency 81602278 E55.9 Acquired hypothyroidism 262018108 E03.9 is on no medication Hyperlipidemia 29981211 E78.5 modify diet and increase exercise as discussed in the office with pt Liver enzy mes outside reference range 270418527 R94.5 Harmful pa ttern of use of alcohol 13894377 F10.10 encouraged pt to decrease use of alcohol and to eat at more regularly intervals [id number] Faustina Sharma Pending sale to [facility] [address] [place], [place] [address] [place] [place] [address] 07/14/2021 08:25:30 07/14/2021 09:15:35 Acquired hypothyroidism 737132802 E03.9 checking labs today Harmful pa ttern of use of alcohol 18266434 F10.10 encouraged pt to decrease use of alcohol and to eat at more regularly intervals Hypertensive disorder 38 616800 I10 BP controlled 138/82 Hyperlipidemia 64361207 E78.5 modify diet and increase exercise as discussed in the office with pt Pain of sh oulder region 97563440 M25.519 toradol and celestone given today in office Vitamin D deficiency 347 63164 E55.9 checking labs today Nicotine dependence 5629 4008 F17.200 encouraged pt to try to decrease amount Adult heal th examination 490772151 Z00.00 Screening for malignant neoplasm of prostate 679454232 Z12.5 Anemia 415729508 D64.9 checking status today Endocrine/ metabolic screening 593416013 Z13.228 Chronic low back pain 27 1005128 M54.50 toradol and celestone given today in office Spasm of back muscles 20 9409537 M62.830 toradol and celestone given today in office [id number] Marjan Call OCCUPATIONAL THERAPY PROFESSOR [facility] [address] [address] 01/19/2025 08:07:53 01/19/2025 08:51:20 Overweight in adulthood with body mass index of 25 or more but less than 30 191882956 E66.3 Z68.25 9021526241 Nicotine dependence 5629 4008 F17.200 26152331 Near syncope 946151080 R 55 534137 Alcohol use disorder 858 2686036 F10.20 47630039 Health Concerns Section Related Observation LastModified by Organization Detai ls LastModified Time None Recorded Concern Status LastModified by Organization Details LastModified Time None Recorded Advance Directives Directive None Recorded Payers Insurance Date Sequence Insurance Name Policy Number Policy Juarez Covered Member ID Juarez Member ID Guarantor Name 02/27/2025 1 [place] [id number] Serafin Redd [id number] Serafin Redd 01/13/2025 1 [place] [id number] Serafin Redd [id number] Serafin Redd Notes Date Note Type Note Provider Name and Address Organization Details Recorded Time 8 text/html Musculoskeletal PainReported by PatientHPIFor quality, patient reportssharp. For severity, patient reportsworsening. For location, patient reportsright shoulder. For duration, patient reportspresent for >12 months. For timing, patient reportsintermittent(recent worsening). For alleviating factors, patient reportsrest. For context, (problem before but at times severe). General Rash/Skin LesionReported by PatientHPIFor quality, patient reportsitchy,painful,red,g eneralized, andswollen. For location, patient reportsabdomenandback. For severity, patient reportsmoderate. For onset/timing, patient reportsabrupt onset. For context, patient reportsno new detergents or skin productsandno one else with similar rash. For alleviating factors, patient reportsnothing gives relief. For aggravating factors, (heat). Care Management - Acquired HypothyroidismReported by PatientCare ManagementFor prognosis, patient reportsexpected outcome: improveandprognosis: good. For context, patient reportssignificant tsh elevation since last seen: __(before starting medication). For medication compliance, patient reportsmissed doses: <1 in last 4 weeks. For medication education, patient reportsunderstands administration,understands effect of concurrent medications,understands missed doses, andunderstands consequences of noncompliance. For follow up, patient reportsscheduled with pcp yes.Interim HistoryFor associated symptoms, patient reportsno dry skin,no cold intolerance,no constipation, andno diarrhea. Here today for right shoulder pain that he has had for a few months and also a rash that is on his abdomen and back that started yesterday MOHAMUD Santos - [facility] 09/27/2017 10:40:15 0 text/html pt states when he lays down at night his arms and legs go numb when he is asleep and when he wakes up they feel this way, he states getting up in the morning and going on in to work helps them get better, he c/o joint pain in arms, hips, knees, ankleshe has a hx of neck and head trauma in the past and he admits his complaints today are not new but chroniche has a loop recorder but has not seen cardiology for sometimehe also c/o ED MOHAMUD Carrion - [facility] 03/01/2020 15:29:24 0 text/html pt is in the office to go over lab results that were abnormal Faustina bravoMOHAMUD - [facility] 03/18/2020 11:10:08 2 text/html ROS as noted in the HPI pt c/o back pain and states that he has knot on his right side that shoots sharp pains and his arm goes numbpt's last visit here was 03.18.2020he states he has had neck, shoulder and back pain for yearsno specifically known trauma he did say he had had Pt in the pastthere are results of plain films of chest, left ribs, and shoulderhe states his will help him fill out the controlled substance agreement form but he stated he would not come out here for pill counts or drug screens Faustina bravoMOHAMUD - [facility] 07/14/2021 09:13:33 5 text/html ROS as noted in the HPI Presents with for issues of dizziness, lightheadedness, near syncope episodes associated with metallic taste, diaphoresis, nauseaHx of blindness due to glaucoma, GERDEpisodes occur while at rest and ambulating - typically lasting <5 minutesNo chest pain, shortness of breath, palpitations or edema. No fever, chills or cough.Does drink 24 beers per dayDoes endorse smokeless tobaccoDoes endorse intermittent pain to left side of upper abdomen - fell 3 weeks Marjan Call, OCCUPATIONAL THERAPY PROFESSOR [address], [place], [address], [place] - [facility] 01/19/2025 08:51:03
--- OUTSIDE RECORDS SUMMARY | 2025-04-13 07:08 | XMS_ITS | Clinical Summary ---
Author Organization [facility] Address [address] [place] [address] Phone Care Team Providers Care Purchasing Officer Name Role Phone Martin Richards MD Primary Care Provider [phone] Allergies Active Allergy Reactions Criticality Noted Date [...] patient's age to complete this topic Insurance [facility] PPO Care Teams Purchasing Officer Relationship Specialty Start Date End Date Martin Richards MD PCP - General Family Medicine 07/17/17
--- OUTSIDE RECORDS SUMMARY | 2025-04-13 07:08 | XMS_ITS | Continuity of Care Document ---
Author Organization MOHAMUD Marcelo [facility] Address [address] MOHAMUD MORRIS [address] Assessment No assessment recorded. Plan of Treatment Reminders Order Date Submit Date Provider Last Modified By Organization Details Last Modified Time Details Appointments None recorded. Lab CBC w/ auto diff 2024 025 NEFTALI [facility], [address], [place], [address], 12:36:57 magnesium, serum or plasma 2024 025 NEFT[facility]I [facility], [address], [place], [address], 12:37:01 TSH + free T4, serum 2024 025 [facility]FTALI [facility], [address], [place], [address], 5 12:36:57 HbA1c (hemoglobi n A1c), blood 2024 025 NEFTALI [facility], [address], [place], [address], 5 12:37:00 cobalamin and folate panel, serum 2024 025 NEFTALI [facility], [address], [place], [address], 12:36:59 vitamin D, 25-hydroxy , total, serum 2024 025 NEFTALI [facility], [address], [address], [place], [address], 12:37:01 iron + TIBC + ferritin, serum 2024 025 [facility]FTALI [facility], [address], [address], [place], [address], 12:36:56 CMP, serum or plasma 2024 025 NEFTALI [facility], [address], [address], [place], [address], 12:36:58 Referral None recorded. Procedures None recorded. Surgeries None recorded. Imaging CT, head, w/o contrast - call Erika at to schedule 2024 025 [facility], [address] [place] [address], [address], 12:52:30 Medication Orders None recorded. Patient TargetsNo targets recorded. Patient Instructions Encounter Date Encounter Id Patient Instructions Last Modified By Organization Details Last Modified Time 01/19/2025 [id number] smoking cessatio n counseling, greater than 3 minutes up to 10 minutes* Not available 01/19/2025 08:17:03 body mass index: care instructions Not available 01/19/2025 09:58:37 learning about healthy weight Not available 01/19/2025 09:58:37 Discussed if symptoms returned, recommend ED evaluation Advised to take medication as directed Will call with results of labs and imaging once available Discussed residential effect of chronic alcoholism To call office for questions, concerns or issues Not available 01/19/2025 08:47:49 Reason for Referral None Reported. Results Created Date Observation Date Name Description Value Unit Range Abnormal Flag Note LastModifiedBy Organization Detail LastModifiedTime 01/20/20 25 01/20/2025 FE+TI BC+FE R iron bind.cap.(TI BC) 320 ug/dL 250-45 0 normal Not Available [facility] ([facility]) [address] [place], [address], 01/20/2025 12:36:56 01/20/20 25 01/20/2025 FE+TI BC+FE R UIBC 207 ug/dL 111-34 3 normal Not Available [facility] ([facility]) [address] [place], [address], 01/20/2025 12:36:56 01/20/20 25 01/20/2025 FE+TI BC+FE R iron 113 ug/dL 38-169 normal Not Available [facility] ([facility]) [address] [place], [address], 01/20/2025 12:36:56 01/20/20 25 01/20/2025 FE+TI BC+FE R iron saturation 35 % 15-55 normal Not Available [facility] ([facility]) [address] [place], [address], 01/20/2025 12:36:56 01/20/2001/20/2025 FE+TI BC+FE R ferritin 242 NG/mL 30-400 normal Not Available [facility] ([facility]) [address] [place], [address], 01/20/2025 12:36:56 01/20/2001/20/2025 TSH+F REE T4 TSH 4.370 uIU/m L 0.450- 4.500 normal Not Available [facility] ([facility]) [address] [place], [address], 01/20/2025 12:36:57 01/20/20 25 01/20/2025 TSH+F REE T4 T4,free(dire ct) 0.96 NG/dL 0.82-1 .77 normal Not Available [facility] ([facility]) [address] [place], [address], 01/20/2025 12:36:57 01/20/20 25 01/20/2025 CBC WITH DIFFE RENTI AL/PL ATELE T WBC 7.5 x10e3 /uL 3.4-10 .8 normal Not Available [facility] ([facility]) [address] [place], , [address], 01/20/2025 12:36:57 01/20/20 25 01/20/2025 CBC WITH DIFFE RENTI AL/PL ATELE T RBC 4.12 x10e6 /uL 4.14-5 .80 below low normal Not Available [facility] ([facility]) [address] [place], , [address], 01/20/2025 12:36:57 01/20/20 25 01/20/2025 CBC WITH DIFFE RENTI AL/PL ATELE T hemoglobin 14.4 g/dL 13.0-1 7.7 normal Not Available [facility] ([facility]) [address] [place], [address], 01/20/2025 12:36:57 01/20/20 25 01/20/2025 CBC WITH DIFFE RENTI AL/PL ATELE T hematocrit 42.8 % 37.5-5 1.0 normal Not Available [facility] ([facility]) [address] [place], [address], 01/20/2025 12:36:57 01/20/20 25 01/20/2025 CBC WITH DIFFE RENTI AL/PL ATELE T MCV 104 fL 79-97 above high normal Not Available [facility] ([facility]) [address] [place], [address], 01/20/2025 12:36:57 01/20/20 25 01/20/2025 CBC WITH DIFFE RENTI AL/PL ATELE T MCH 35.0 pg 26.6-3 3.0 above high normal Not Available [facility] ([facility]) [address] [place], , [address], 01/20/2025 12:36:57 01/20/20 25 01/20/2025 CBC WITH DIFFE RENTI AL/PL ATELE T MCHC 33.6 g/dL 31.5-3 5.7 normal Not Available [facility] ([facility]) [address] [place], [address], 01/20/2025 12:36:57 01/20/20 25 01/20/2025 CBC WITH DIFFE RENTI AL/PL ATELE T RDW 12.8 % 11.6-1 5.4 Not Available [facility] ([facility]) [address] [place], , [address], 01/20/2025 12:36:57 01/20/20 25 01/20/2025 CBC WITH DIFFE RENTI AL/PL ATELE T platelets 197 x10e3 /uL 150-45 0 normal Not Available [facility] ([facility]) [address] [place], [address], 01/20/2025 12:36:57 01/20/20 25 01/20/2025 CBC WITH DIFFE RENTI AL/PL ATELE T neutrophils 63 % not estab. normal Not Available [facility] ([facility]) [address] [place], [address], 01/20/2025 12:36:57 01/20/20 25 01/20/2025 CBC WITH DIFFE RENTI AL/PL ATELE T lymphs 24 % not estab. normal Not Available [facility] ([facility]) [address] [place], [address], 01/20/2025 12:36:57 01/20/20 25 01/20/2025 CBC WITH DIFFE RENTI AL/PL ATELE T monocytes 11 % not estab. normal Not Available [facility] ([facility]) [address] [place], [address], 01/20/2025 12:36:57 01/20/20 25 01/20/2025 CBC WITH DIFFE RENTI AL/PL ATELE T eos 1 % not estab. normal Not Available [facility] ([facility]) [address] [place], [address], 01/20/2025 12:36:57 01/20/20 25 01/20/2025 CBC WITH DIFFE RENTI AL/PL ATELE T basos 1 % not estab. normal Not Available [facility] ([facility]) [address] [place], [address], 01/20/2025 12:36:57 01/20/20 25 01/20/2025 CBC WITH DIFFE RENTI AL/PL ATELE T immature cells MORTGAGE FIELD INSPECTOR Not Available [facility] ([facility]) [address] [place], [address], 01/20/2025 12:36:57 01/20/20 25 01/20/2025 CBC WITH DIFFE RENTI AL/PL ATELE T neutrophils (absolute) 4.7 x10e3 /uL 1.4-7. 0 normal Not Available [facility] ([facility]) [address] [place], [address], 01/20/2025 12:36:57 01/20/20 25 01/20/2025 CBC WITH DIFFE RENTI AL/PL ATELE T lymphs (absolute) 1.8 x10e3 /uL 0.7-3. 1 normal Not Available [facility] ([facility]) [address] [place], [address], 01/20/2025 12:36:57 01/20/20 25 01/20/2025 CBC WITH DIFFE RENTI AL/PL ATELE T monocytes(ab solute) 0.8 x10e3 /uL 0.1-0. 9 normal Not Available [facility] ([facility]) [address] [place], [address], 01/20/2025 12:36:57 01/20/20 25 01/20/2025 CBC WITH DIFFE RENTI AL/PL ATELE T eos (absolute) 0.1 x10e3 /uL 0.0-0. 4 normal Not Available [facility] ([facility]) [address] [place], , [address], 01/20/2025 12:36:57 01/20/20 25 01/20/2025 CBC WITH DIFFE RENTI AL/PL ATELE T baso (absolute) 0.1 x10e3 /uL 0.0-0. 2 normal Not Available [facility] ([facility]) [address] [place], , [address], 01/20/2025 12:36:57 01/20/20 25 01/20/2025 CBC WITH DIFFE RENTI AL/PL ATELE T immature granulocytes 0 % not estab. Not Available [facility] ([facility]) [address] [place], , [address], 01/20/2025 12:36:57 01/20/2001/20/2025 CBC WITH DIFFE RENTI AL/PL ATELE T immature grans (abs) 0.0 x10e3 /uL 0.0-0. 1 Not Available [facility] ([facility]) [address] [place], [address], 01/20/2025 12:36:57 01/20/2001/20/2025 CBC WITH DIFFE RENTI AL/PL ATELE T NRBC MORTGAGE FIELD INSPECTOR Not Available [facility] ([facility]) [address] [place], [address], 01/20/2025 12:36:57 01/20/20 25 01/20/2025 CBC WITH DIFFE RENTI AL/PL ATELE T hematology comments: MORTGAGE FIELD INSPECTOR Not Available [facility] ([facility]) [address] [place], [address], 01/20/2025 12:36:57 01/20/20 25 01/20/2025 COMP. METAB OLIC PANEL (14) glucose COMMEN T mg/dL Test not perfo rmed. Serum was in conta ct with cells when recei parish which will make the resul t inacc urate . Not Available [facility] ([facility]) [address] [place], [address], 01/20/2025 12:36:58 01/20/20 25 01/20/2025 COMP. METAB OLIC PANEL (14) BUN 4 mg/dL 6-24 below low normal Not Available [facility] ([facility]) [address] [place], [address], 01/20/2025 12:36:58 01/20/20 25 01/20/2025 COMP. METAB OLIC PANEL (14) creatinine 0.46 mg/dL 0.76-1 .27 below low normal Not Available [facility] ([facility]) [address] [place], [address], 01/20/2025 12:36:58 01/20/20 25 01/20/2025 COMP. METAB OLIC PANEL (14) eGFR 122 mL/mi n/1.7 3 >59 normal Not Available [facility] ([facility]) [address] [place], [address], 01/20/2025 12:36:58 01/20/20 25 01/20/2025 COMP. METAB OLIC PANEL (14) BUN/creatini ne ratio 9 9-20 normal Not Available [facility] ([facility]) [address] [place], [address], 01/20/2025 12:36:58 01/20/20 25 01/20/2025 COMP. METAB OLIC PANEL (14) sodium 140 mmol/ L 134-14 4 normal Not Available [facility] ([facility]) [address] [place], [address], 01/20/2025 12:36:58 01/20/20 25 01/20/2025 COMP. METAB OLIC PANEL (14) potassium COMMEN T mmol/ L Test not perfo rmed. Serum was in conta ct with cells when recei parish which will make the resul t inacc urate . Not Available [facility] ([facility]) [address] , [address], 01/20/2025 12:36:58 01/20/20 25 01/20/2025 COMP. METAB OLIC PANEL (14) chloride 99 mmol/ L 96-106 normal Not Available [facility] ([facility]) [address] , [address], 01/20/2025 12:36:58 01/20/20 25 01/20/2025 COMP. METAB OLIC PANEL (14) carbon dioxide, total 21 mmol/ L 20-29 normal Not Available [facility] ([facility]) [address] , [address], 01/20/2025 12:36:58 01/20/20 25 01/20/2025 COMP. METAB OLIC PANEL (14) calcium 8.9 mg/dL 8.7-10 .2 normal Not Available [facility] ([facility]) [address] , [address], 01/20/2025 12:36:58 01/20/20 25 01/20/2025 COMP. METAB OLIC PANEL (14) protein, total 7.6 g/dL 6.0-8. 5 normal Not Available [facility] ([facility]) [address] , [address], 01/20/2025 12:36:58 01/20/20 25 01/20/2025 COMP. METAB OLIC PANEL (14) albumin 4.3 g/dL 3.8-4. 9 normal Not Available [facility] ([facility]) [address] [place], , [address], 01/20/2025 12:36:58 01/20/20 25 01/20/2025 COMP. METAB OLIC PANEL (14) globulin, total 3.3 g/dL 1.5-4. 5 Not Available [facility] ([facility]) [address] [place], [address], 01/20/2025 12:36:58 01/20/20 25 01/20/2025 COMP. METAB OLIC PANEL (14) bilirubin, total 0.8 mg/dL 0.0-1. 2 normal Not Available [facility] ([facility]) [address] [place], , [address], 01/20/2025 12:36:58 01/20/20 25 01/20/2025 COMP. METAB [...] 129 48 - 129 Not Available [facility] ([facility]) [address] [place], , [address], 01/20/2025 12:36:58 01/20/20 25 01/20/2025 COMP. METAB OLIC PANEL (14) AST (SGOT) 121 IU/L 0-40 above high normal Not Available [facility] ([facility]) [address] [place], [address], 01/20/2025 12:36:58 01/20/20 25 01/20/2025 COMP. METAB OLIC PANEL (14) ALT (SGPT) 29 IU/L 0-44 normal Not Available [facility] ([facility]) [address] [place], [address], 01/20/2025 12:36:58 01/20/20 25 01/20/2025 VITAM IN B12 AND FOLAT E vitamin B12 716 pg/mL 232-12 45 normal Not Available [facility] ([facility]) [address] [place], [address], 01/20/2025 12:36:59 01/20/2001/20/2025 VITAM IN B12 AND FOLAT E folate (folic acid), serum 14.4 NG/mL >3.0 normal A serum folat e margarita ntrat ion of less than 3.1 ng/mL is consi dered to repre sent clini geovany defic iency . Not Available [facility] ([facility]) [address] [place], , [address], 01/20/2025 12:36:59 01/20/2001/20/2025 HEMOG LOBIN A1C hemoglobin A1C 5.3 % 4.8-5. 6 normal Predi abete s: 5.7 - 6.4 Diabe jolynn: >6.4 Glyce tracie contr ol for adult s with diabe jolynn: <7.0 Not Available [facility] ([facility]) [address] [place], [address], 01/20/2025 12:37:00 01/20/20 25 01/20/2025 VITAM IN D, 25-HY DROXY vitamin D, 25-hydroxy 40.7 NG/mL 30.0-1 00.0 Vitam in D defic iency has been defin ed by the Insti tute of Medic ine and an Endoc rine Socie ty pract ice guide line as a level of serum 25-OH vitam in D less than 20 ng/mL (1,2) . The Endoc rine Socie ty went on to formerly [facility] er defin e vitam in D insuf ficie ncy as a level betwe en 21 and 29 ng/mL (2). 1. IOM (Inst itute of Medic ine). 2009. Dieta ry refer ence intak es for calci um and D. Shawn gallegos [place]: The [facility] Press . 2. Marilyn gonsalez MF, Dipti cruz [place], Willem off-F michael i YEUNG, et al. Evalu ation , treat ment, and preve ntion of vitam in D defic iency : an Endoc rine Socie ty clini geovany pract ice guide line. JCEM. 2010; 96(7) :1911 -30. Not Available [facility] ([facility]) [address] [place], , [address], 01/20/2025 12:37:01 01/20/20 25 01/20/2025 MAGNE SIUM magnesium 2.0 mg/dL 1.6-2. 3 normal Not Available [facility] ([facility]) [address] [place], [address], 01/20/2025 12:37:01 01/23/[address], head, w/o contr ast No observ ation record ed. [address], [place], [address], 01/27/2025 13:05:34 Result Notes None recorded. Problems Name Problem SNOMED Code Status Onset Date Resolution Date Notes Provider Name and Address Organization Details Recorded Time Hypertensive disorder 92166687 Active 2016 MOHAMUD Rojas - [facility] 7 14:17:22 Hyperlipidemi a 91794251 Active 2016 Josefina Carballo null, [place] - [facility] 7 14:17:33 Pain of shoulder region 76184752 Active 2016 David Tobin MD [address], [place], [address] , [place] - [facility] 7 20:36:14 Neck pain 44962987 Active 2016 David Tobin MD [address], [place], [address] , [place] - [facility] 7 20:36:47 Acquired hypothyroidis m 955805100 Active 2017 Lori Salcedo null, [place] - [facility] 8 14:17:03 Initial insomnia 41962121 Active 2017 Lori Salcedo null, [place] - [facility] 8 17:54:02 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 Active 2019 Faustinayan Fishe null, [place] - [facility] 0 14:31:32 Nicotine dependence 36013113 Active 2019 Faustina Harwich null, [place] - [facility] 0 15:26:29 Complaining of erectile dysfunction Active 2019 Faustina Harwich [place] - [facility] 0 15:26:30 Liver enzymes outside reference range 460788091 Active 2019 Faustina Harwich null, [place] - [facility] 0 11:09:08 Harmful pattern of use of alcohol 29379942 Active 2019 Faustina Harwich null, [place] - [facility] 0 11:09:11 Anemia 808020893 Active 2021 Faustina Harwich null, [place] - [facility] 2 08:57:52 Decreased hearing 706709247 Active 2024 Crystal Holly null, [place] - [facility] 5 08:15:15 Near syncope 835450492 Active 2024 Marjan Call, PANTRY STEWARD/STEWARDESS [address], [place], [address] , [place] - [facility] 5 08:37:06 Alcohol use disorder Active 2024 Marjan Call, PANTRY STEWARD/STEWARDESS [address], [place], [address] , [place] - [facility] 08:38:18 Problem Notes None recorded. Procedures Surgical History Date Name Laterality Status Provider Name and Address Organization Details Recorded Time Colonoscopy completed Josefina Carballo [place] - [facility] 12/28/2016 14:18:40 Holster elec/combo vad, rep completed Josefina Carballo [place] - [facility] 12/28/2016 14:19:07 Imaging Results None recorded. Procedure Notes None recorded. Medical Equipment None Reported. Allergies Allergen ID Allergen Name Allergen Category Reaction Reaction Severity Criticality Documentation Date Start Date Code Code System Note Provider Name and Address Organization Details Recorded Time 02614 acetamino phen / hydrocodo ne medicatio n Not available Not available Not available 02/18/20162007 88926 2 RxNorm Not Available [facility] 6 08:28:18 62333 naproxen medicatio n itching Not available Not [...] Disconti nued on: 11/29/19 14 11:39AM; User: monique;In dication : Hyperten izzy - (07.4019 00) [...] aspirin 81 mg oral tablet,d elayed release (/EC); Recorded Status: Recorded on: 03/28/20 13 9:39AM;U [...] Disconti nued on: 12/16/19 15 11:11AM; User: neuss;Es t. Completi on: 04/29/20 14 Not Available Not Available Not Available meclizine 25 mg tablet take 1 tablet (25 mg) by oral route 3 times per day as needed for vertigo 02/01 completed meclizin e 25 mg oral tablet;P rescribe Status: Prescrib ed on: 11/12/19 13 10:58AM; Disconti nued Status: Disconti nued on: 02/02/20 13 9:20AM;U ser: gored;Es t. Completi on: 12/02/19 13;Pharm acyVerif ied: 11/12/19 [...] nued on: 11/01/19 14 4:01PM;U ser: neuss;Es t. Completi on: 09/25/19 14;Indic ation: Major Depressi [...] Completi on: 10/27/19 16;Indic ation: Anxiety - (.3000 00) Not Available Not Available Not Available [...] Completi on: 02/16/20 14;Indic ation: Pain - (16.7818 00) Not Available Not Available Not Available [...] ular solution give 60 mg IM please 01/242 completed Not Available Not Available Not Available [...] Status: Recorded on: 12/16/19 15 11:37AM; User: monique;Es t. Completi on: 04/14/20 15;Indic ation: Sleep-On set Insomnia [...] Disconti nued on: 02/02/20 13 9:20AM;U ser: baker;E st. Completi on: 12/01/19 13;Pharm acyVerif ied: [...] Disconti nued on: 03/28/20 13 8:41AM;U ser: [email or web address]; Est. Completi on: 08/11/19 10;Indic ation: htn [...] No t Available Vitals Date Recorded Body height Body mass index (BMI) Body weight Heart rate Oxygen saturation Respiratory rate Pain severity - 0-10 verbal numeric rating [Score] - Reported Systolic And Diastolic Provider Name and Address Organization Details Last Updated DateTime 5 177.8 cm 25.7 kg/m2 39594.0 3 g 63 /min 98 % 18 /min 3 126/82 mm[Hg] Crystal Holly [place] - [facility] 5 08:19:37 Social History Question Answer Notes LastModified by Organizat ion Details LastModified Time Tobacco Smoking Status Never Smoker Josefina Carballo shelly, [place] - [facility] 12/28/2016 14:18:13 What Was The Date Of Your Most Recent Tobacco Screening? 01/19/2025 Information not available 01/19/2025 Has Tobacco Cessation Counseling Been Provided? Yes Information not available 01/19/2025 On What Date Was Tobacco Cessation Counseling Provided? 01/19/2025 Information not available 01/19/2025 Sex: Male Functional Status Question Answer Note LastModified by Organizat ion Details LastModified Time Do you use [...] ICD10 Code Diagnosis IMO Codes Diagnosis Note [id number] Marjan Call APRN [facility] [address] [place] [place] [address] [address] 01/19/2025 08:07:53 01/19/2025 08:51:20 Overweight in adulthood with body mass index of 25 or more but less than 30 384930496 E66.3 Z68.25 8164015655 Nicotine dependence 5629 4008 F17.200 93272785 Near syncope 059178958 R 55 761328 Alcohol use disorder 828 0043271 F10.20 86788746 Health Concerns Section Related Observation LastModified by Organization Detai ls LastModified Time None Recorded Concern Status LastModified by Organization Details LastModified Time None Recorded Payers Encounter Date Sequence Insurance Name Policy Number Policy Juarez Covered Member ID Juarez Member ID Guarantor Name 01/19/2025 1 [place] [id number] Serafin Redd [id number] Serafin Redd Notes Date Note Type Note Provider Name and Address Organization Details Recorded Time 01/19/2025 text/html ROS as noted in the HPI [...] abdomen - fell 3 weeks Marjan Call, PANTRY STEWARD/STEWARDESS [address], [place], [address], [place] - [facility] 01/19/2025 08:51:03
--- OUTSIDE RECORDS SUMMARY | 2025-04-13 07:08 | XMS_ITS | Clinical Summary ---
Author Organization [facility] Address [address] [place] [address] Care Team Providers Care Sourcing Manager Name Role Phone Pcp, No Primary Care Provider Unavailabl e Allergies Active Allergy Reactions Criticality Noted Date Comments Hydrocodone-Acetaminophen Other - please document in the comment field Low 11/15/2012 Medications atorvastatin (Lipitor) 20 MG tablet Take 1 tablet (20 mg) by mouth 1 (one) time each day in the morning. 4 Active ergocalciferol 1.25 MG (23286 UT) capsule every 14 (fourteen) days. Sunday [...] [facility]-HIV Screening 1967 [facility]-Hepatitis C Screening 1967 [facility]-Infant/Child/Adol SDOH Screenings 1967 [id number] Vaccine (#1) 11/19/1972 [facility]- SDOH Screenings 11/19/1985 [...] this topic Medical Devices Implanted Type Area Procurement Consultant Device Identifier Shelf Expiration Date Model / Serial / Lot Lens Monofocal Clear [id number] 21.0 - [id number] Implanted:Qty: 1 on 2023 by Eitan Meza MD at [facility] Left: [employer]-[id number] 04/10/2027 [id number].210 / [id number] / [id number] Lens Monofocal Clear [id number] 20.5 - [id number] Implanted:Qty: 1 on 12/04/2023 by Eitan Meza MD at [facility] Right: [employer]-[id number] 05/23/2027 CC60WF.205 / [id number] 2 / [id number] Insurance [employer] Care Teams Sourcing Manager Relationship Specialty Start Date End Date Pcp, [place] [address] PCP - General Family Medicine 08/23/23
--- NOTE | 2025-04-13 07:30 | US_ITS ---
FINAL REPORT TECHNIQUE: Sonographic images of the right upper quadrant were obtained. CLINICAL HISTORY: Cirrohosis COMPARISON: None FINDINGS: PANCREAS: Head normal, tail obscured.. LIVER: Increased echogenicity. Contour is lobular. Findings are concerning for cirrhosis. Portal vein patent. GALLBLADDER: Distended. There is sludge. No shadowing stones seen.. No gallbladder wall thickening or pericholecystic fluid. COMMON DUCT: 3 mm. Normal for age. RIGHT KIDNEY: The right kidney measures 11.7 cm. No hydronephrosis. A right renal cyst is noted.. FREE FLUID: Moderate to large amount of ascites.. IMPRESSION: Nodular liver with increased echogenicity. Moderate to large amount of ascites. Gallbladder sludge. Reviewed, Interpreted and Dictated by Wendy Rice MD Transcribed by Zoraida Matos Authenticated and [facility]
== END 2025-04-13 23:59 | disposition home or self-care (01) ==
LOC: RAD 07:05
PROVIDERS: PCP Family Medicine; Visit Provider Family Medicine
DX: K76.89 Other specified diseases of liver (principal); K74.60 Unspecified cirrhosis of liver; K82.8 Other specified diseases of gallbladder; R18.8 Other ascites
CPT/HCPCS: 76705

== ENCOUNTER 2025-04-20 06:47 | Outpatient (CLI) | payer BC, SELFPAY ==
--- OUTSIDE RECORDS SUMMARY | 2025-04-20 06:50 | XMS_ITS | Data Portability ---
Author Organization [facility] Address [address] [place] [address] Assessment Encounter Date Assessment Date Assessment LastModified [...] [address], [address], [place], [address], 12:36:57 magnesium, serum or plasma 2024 025 [facility], [address], [address], [place], [address], 5 12:37:01 TSH + free T4, serum 2024 025 [facility], [address], [address], [place], [address], 12:36:57 HbA1c (hemoglobi n A1c), blood 2024 025 [facility], [address], [address], [place], [address], 12:37:00 cobalamin and folate panel, serum 2024 025 [facility], [address], [address], [place], [address], 12:36:59 vitamin D, 25-hydroxy , total, serum 2024 025 [facility], [address], [address], [place], [address], 12:37:01 iron + TIBC + ferritin, serum 2024 025 [facility], [address], [address], [place], [address], 12:36:56 CMP, serum or plasma 2024 025 [facility], [address], [address], [place], [address], 12:36:58 thyroid panel, serum 2021 022 [facility], [address], [address], [place], [address], 16:36:41 HbA1c (hemoglobi n A1c), blood 2021 022 [facility], [address], [address], [place], [address], 16:36:43 CMP, serum or plasma 2021 022 [facility], [address], [address], [place], [address], 16:36:39 hepatic function panel, serum 2021 [facility], [address], [address], [place], [address], 16:36:40 lipid panel, serum 2021 [facility], [address], [address], [place], [address], 16:36:40 ferritin, serum or plasma 2021 [facility], [address] [place], [address], 16:36:45 folate, serum 2021 [facility], [address] [place] [address], [address], 16:36:44 iron + total iron-nayeli ng capacity (TIBC), serum 2021 [facility], [address] [place] [address], [address], 16:36:42 retic count, blood 2021 [facility], [address] [place] [address], [address], 16:36:45 vitamin B12, serum 2021 [facility], [address] [place] [address], [address], 16:36:44 CBC 2021 [facility], [address] [place], [address], 16:36:39 PSA, serum or plasma 2021 [facility], [address], [address], [place], [address], 2 16:36:42 hepatitis panel (A+B+C), acute, serum 2019 020 [facility], [address], [address], [place], [address], 0 05:37:07 hepatitis C Ab, signal-to- cutoff, serum or plasma 2019 020 [facility], [address], [address], [place], [address], 0 03:36:04 HIV 1+2 Ab, rapid IA, serum, plasma or blood 2019 020 [facility], [address], [address], [place], [address], 0 03:35:59 vitamin B12 + folate, serum or blood 2019 020 [facility], [address], [address], [place], [address], 0 03:36:00 CBC w/ auto diff 2019 020 [facility], [address], [address], [place], [address], 0 03:35:56 HbA1c (hemoglobi n A1c), blood 2019 020 [facility], [address], [address], [place], [address], 0 03:36:02 magnesium, serum or plasma 2019 020 [facility], [address], [address], [place], [address], 0 03:36:04 CMP, serum or plasma 2019 020 [facility], [address], [address], [place], [address], 0 03:35:57 vitamin B12, serum 2019 020 [email or web address] [facility], [address], [place], [address], 0 07:48:41 TSH, ultra-sens itive, serum 2019 020 [facility], [address], [address], [place], [address], 0 03:36:02 vitamin D, 25-hydroxy , total, serum 2019 020 [facility], [address], [place], [address], 0 03:36:03 iron + total iron-nayeli ng capacity (TIBC), serum 2019 020 [facility], [address], [address], [place], [address], 0 03:35:58 lipid panel, serum 2019 020 [facility], [address], [address], [place], [address], 0 03:35:58 testostero ne, free + total, serum 2019 020 [facility], [address], [address], [place], [address], 0 03:36:00 shbg (sex hormone-bi nding globulin), serum 2019 020 [facility], [address], [address], [place], [address], 0 03:36:05 PSA, serum or plasma 2019 020 [facility], [address], [address], [place], [address], 0 03:36:01 TSH + free T4, serum 2017 018 [facility], [address], [address], [place], [address], 8 08:54:17 CBC w/ auto diff 2017 018 [facility], [address], [address], [place], [address], 8 08:54:18 CMP, serum or plasma 2017 018 [facility], [address], [address], [place], [address], 8 08:54:[address] referral 2019 020 [email or web address] Jolie Charlton MD, [address] , [place], [address], 1 13:36:41 Procedures None recorded. Surgeries None recorded. Imaging CT, head, w/o contrast - call Erika at to schedule 2024 025 [facility], [address] [facility], [place], [address], 5 12:52:30 loop monitor 2019 020 [email or web address] [facility], [address], [place], [address], 1 13:37:34 electrocar diogram 2019 [email or web address] 1 [facility], [address] [place], [address], 0 16:06:23 XR, shoulder, 2 or more view 2017 018 [facility], [address] [place], [address], 8 20:09:52 Medication Orders ketorolac 60 mg/2 mL intramuscu lar solution 2021 022 [email or web address] Not available 2 15:00:10 Celestone Soluspan 6 mg/mL suspension for injection 2021 022 [email or web address] Not available 2 15:00:08 cyclobenza dora 10 mg tablet [address] [facility] [address] [facility], [address] [place], [address], 5 08:11:33 levothyrox ine 50 mcg tablet [address] [facility], [address] [place], [address], 5 08:15:52 Vitamin D2 1,250 mcg (50,000 unit) capsule [address] [facility], [address] [place], [address], 5 08:15:56 atorvastat in 20 mg tablet [address] [facility], [address] [place], [address], 5 08:15:33 Depo-Medro l 80 mg/mL suspension for injection 2019 020 [email or web address] Not available 0 10:38:37 tramadol 50 mg tablet [address] [facility], [address] [place], [address], 5 08:11:20 Ambien 5 mg tablet 2017 018 NEFT[facility]I [facility], [address] [place], [address], 2 07:53:51 Depo-Medro l 80 mg/mL suspension for injection 2017 018 [email or web address] [facility], [address] [place], [address], 0 10:38:37 Patient TargetsNo targets recorded. Patient Instructions Encounter Date Encounter Id Patient Instructions Last Modified By Organization Details Last Modified Time 09/26/2017 [id number] elevated blood pressure: care instructions sneus Not available 09/26/2017 20:09:52 insomnia: care instructions sneus Not available 09/28/2017 07:44:48 high cholesterol : care instructions sneus Not available 09/26/2017 20:09:52 A healthy lifestyle: care instructions sneus Not available 09/26/2017 20:09:52 shoulder pain: care instructions sneus Not available 09/26/2017 20:09:52 03/01/2020 [id number] cardiac arrhythmia: care instructions Not available 03/01/2020 [...] follow up Not available 03/01/2020 15:27:56 03/18/2020 [id number] acute alcohol intoxication: care instructions Not available [...] 3 months Not available 03/18/2020 11:08:51 07/14/2021 [id number] acute alcohol intoxication: care instructions Not available [...] decision making Not available 07/14/2021 09:11:33 01/19/2025 [id number] smoking cessatio n counseling, greater than 3 minutes up to 10 minutes* Not available 01/19/2025 08:17:03 body mass index: care instructions Not available 01/19/2025 09:58:37 learning about healthy weight Not available 01/19/2025 09:58:37 Discussed if symptoms returned, recommend ED evaluation Advised to take medication as directed Will call with results of labs and imaging once available Discussed intermodal customer service effect of chronic alcoholism To call office for questions, concerns or issues Not available 01/19/2025 08:47:49 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 Referral for Co nduction disorder of the heart Referring Physician: Faustina Sharma, Family Medicine, Encounter Date: 03/01/2020 Results Created Date Observation Date Name Description Value Unit Range Abnormal Flag Note LastModifiedBy Organization Detail LastModifiedTime 09/27/19 18 09/27/2017 TSH + free T4, serum TSH 1.440 uIU/m L 0.450- 4.500 Not Available [facility] ([facility]) [address] [facility], [place], [address], 09/27/2017 08:54:17 09/27/19 18 09/27/2017 TSH + free T4, serum T4,free(dire ct) 1.04 NG/dL 0.82-1 .77 Not Available [facility] ([facility]) [address] [place], [address], 09/27/2017 08:54:17 09/27/19 18 09/27/2017 CBC w/ auto diff WBC 6.1 x10e3 /uL 3.4-10 .8 Not Available [facility] ([facility]) [address] [place], [address], 09/27/2017 08:54:18 09/27/19 18 09/27/2017 CBC w/ auto diff RBC 4.41 x10e6 /uL 4.14-5 .80 Not Available [facility] ([facility]) [address] [place], [address], 09/27/2017 08:54:18 09/27/19 18 09/27/2017 CBC w/ auto diff hemoglobin 14.8 g/dL 13.0-1 7.7 Not Available [facility] ([facility]) [address] [place], [address], 09/27/2017 08:54:18 09/27/19 18 09/27/2017 CBC w/ auto diff hematocrit 41.6 % 37.5-5 1.0 Not Available [facility] ([facility]) [address] [place], [address], 09/27/2017 08:54:18 09/27/19 18 09/27/2017 CBC w/ auto diff MCV 94 fL 79-97 Not Available [facility] ([facility]) [address] [facility] [place], [address], 09/27/2017 08:54:18 09/27/19 18 09/27/2017 CBC w/ auto diff MCH 33.6 pg 26.6-3 3.0 above high normal Not Available [facility] ([facility]) [address] [facility], [place], [address], 09/27/2017 08:54:18 09/27/19 18 09/27/2017 CBC w/ auto diff MCHC 35.6 g/dL 31.5-3 5.7 Not Available [facility] ([facility]) [address] [facility], [place], [address], 09/27/2017 08:54:18 09/27/19 18 09/27/2017 CBC w/ auto diff RDW 13.4 % 12.3-1 5.4 Not Available [facility] ([facility]) [address] [facility], [place], [address], 09/27/2017 08:54:18 09/27/19 18 09/27/2017 CBC w/ auto diff platelets 290 x10e3 /uL 150-37 9 Not Available [facility] ([facility]) [address] [facility], [place], [address], 09/27/2017 08:54:18 09/27/19 18 09/27/2017 CBC w/ auto diff neutrophils 50 % not estab. Not Available [facility] ([facility]) [address] [facility] [place], [address], 09/27/2017 08:54:18 09/27/19 18 09/27/2017 CBC w/ auto diff lymphs 37 % not estab. Not Available [facility] ([facility]) [address] [facility], [place], [address], 09/27/2017 08:54:18 09/27/19 18 09/27/2017 CBC w/ auto diff monocytes 9 % not estab. Not Available [facility] ([facility]) [address] [place], [address], 09/27/2017 08:54:18 09/27/19 18 09/27/2017 CBC w/ auto diff eos 3 % not estab. Not Available [facility] ([facility]) [address] [place], [address], 09/27/2017 08:54:18 09/27/19 18 09/27/2017 CBC w/ auto diff basos 1 % not estab. Not Available [facility] ([facility]) [address] [place], [address], 09/27/2017 08:54:18 09/27/19 18 09/27/2017 CBC w/ auto diff immature cells TEACHING ASSOCIATE Not Available [facility] ([facility]) [address] [place], [address], 09/27/2017 08:54:18 09/27/19 18 09/27/2017 CBC w/ auto diff neutrophils (absolute) 3.1 x10e3 /uL 1.4-7. 0 Not Available [facility] ([facility]) [address] [place], [address], 09/27/2017 08:54:18 09/27/19 18 09/27/2017 CBC w/ auto diff lymphs (absolute) 2.3 x10e3 /uL 0.7-3. 1 Not Available [facility] ([facility]) [address] [place], [address], 09/27/2017 08:54:18 09/27/19 18 09/27/2017 CBC w/ auto diff monocytes(ab solute) 0.5 x10e3 /uL 0.1-0. 9 Not Available [facility] ([facility]) [address] [place], [address], 09/27/2017 08:54:18 09/27/19 18 09/27/2017 CBC w/ auto diff eos (absolute) 0.2 x10e3 /uL 0.0-0. 4 Not Available [facility] ([facility]) [address] [place], [address], 09/27/2017 08:54:18 09/27/19 18 09/27/2017 CBC w/ auto diff baso (absolute) 0.1 x10e3 /uL 0.0-0. 2 Not Available [facility] ([facility]) [address] [place], [address], 09/27/2017 08:54:18 09/27/19 18 09/27/2017 CBC w/ auto diff immature granulocytes 0 % not estab. Not Available [facility] ([facility]) [address] [place], [address], 09/27/2017 08:54:18 09/27/19 18 09/27/2017 CBC w/ auto diff immature grans (abs) 0.0 x10e3 /uL 0.0-0. 1 Not Available [facility] ([facility]) [address] [place], [address], 09/27/2017 08:54:18 09/27/19 18 09/27/2017 CBC w/ auto diff NRBC TEACHING ASSOCIATE Not Available [facility] ([facility]) [address] [place], [address], 09/27/2017 08:54:18 09/27/19 18 09/27/2017 CBC w/ auto diff hematology comments: TEACHING ASSOCIATE Not Available [facility] ([facility]) [address] [place], [address], 09/27/2017 08:54:18 09/27/19 18 09/27/2017 CMP, serum or plasm a glucose 88 mg/dL 65-99 Not Available [facility] ([facility]) [address] [place], [address], 09/27/2017 08:54:19 09/27/19 18 09/27/2017 CMP, serum or plasm a BUN 7 mg/dL 6-24 Not Available [facility] ([facility]) [address] [facility] [place], [address], 09/27/2017 08:54:19 09/27/19 18 09/27/2017 CMP, serum or plasm a creatinine 0.68 mg/dL 0.76-1 .27 below low normal Not Available [facility] ([facility]) [address] [facility] [place], [address], 09/27/2017 08:54:19 09/27/19 18 09/27/2017 CMP, serum or plasm a eGFR if nonafricn AM 112 mL/mi n/1.7 3 >59 Not Available [facility] ([facility]) [address] [place], [address], 09/27/2017 08:54:19 09/27/19 18 09/27/2017 CMP, serum or plasm a eGFR if africn AM 130 mL/mi n/1.7 3 >59 Not Available [facility] ([facility]) [address] [place], [address], 09/27/2017 08:54:19 09/27/19 18 09/27/2017 CMP, serum or plasm a BUN/creatini ne ratio 10 9-20 Not Available [facility] ([facility]) [address] [place], [address], 09/27/2017 08:54:19 09/27/19 18 09/27/2017 CMP, serum or plasm a sodium 143 mmol/ L 134-14 4 Not Available [facility] ([facility]) [address] [place], [address], 09/27/2017 08:54:19 09/27/19 18 09/27/2017 CMP, serum or plasm a potassium 3.9 mmol/ L 3.5-5. 2 Not Available [facility] ([facility]) [address] [facility] [place], [address], 09/27/2017 08:54:19 09/27/19 18 09/27/2017 CMP, serum or plasm a chloride 103 mmol/ L 96-106 Not Available [facility] ([facility] [address] [facility] [place], [address], 09/27/2017 08:54:19 09/27/19 18 09/27/2017 CMP, serum or plasm a carbon dioxide, total 19 mmol/ L 18-29 Not Available [facility] ([facility] [address] [facility] [place], [address], 09/27/2017 08:54:19 09/27/19 18 09/27/2017 CMP, serum or plasm a calcium 9.5 mg/dL 8.7-10 .2 Not Available [facility] ([facility]) [address] [facility] [place], [address], 09/27/2017 08:54:19 09/27/19 18 09/27/2017 CMP, serum or plasm a protein, total 7.4 g/dL 6.0-8. 5 Not Available [facility] ([facility]) [address] [place] [place], [address], 09/27/2017 08:54:19 09/27/1909/27/2017 CMP, serum or plasm a albumin 4.6 g/dL 3.5-5. 5 Not Available [facility] ([facility]) [address] [place] [place], [address], 09/27/2017 08:54:19 09/27/1909/27/2017 CMP, serum or plasm a globulin, total 2.8 g/dL 1.5-4. 5 Not Available [facility] ([facility]) [address] [place] [place], [address], 09/27/2017 08:54:19 09/27/19 18 09/27/2017 CMP, serum or plasm a A/G ratio 1.6 1.2-2. 2 Not Available [facility] ([facility]) [address] [facility] [place], [address], 09/27/2017 08:54:19 09/27/19 18 09/27/2017 CMP, serum or plasm a bilirubin, total 0.3 mg/dL 0.0-1. 2 Not Available [facility] ([facility]) [address] [facility] [place], [address], 09/27/2017 08:54:19 09/27/19 18 09/27/2017 CMP, serum or plasm a alkaline phosphatase 77 IU/L 39-117 Not Available [facility] ([facility]) [address] [place], [address], 09/27/2017 08:54:19 09/27/19 18 09/27/2017 CMP, serum or plasm a AST (SGOT) 135 IU/L 0-40 above high normal Not Available [facility] ([facility]) [address] [place], [address], 09/27/2017 08:54:19 09/27/19 18 09/27/2017 CMP, serum or plasm a ALT (SGPT) 90 IU/L 0-44 above high normal Not Available [facility] ([facility]) [address] [place], [address], 09/27/2017 08:54:19 03/01/20 20 03/02/2020 CBC w/ auto diff WBC 9.2 x10e3 /uL 3.4-10 .8 Not Available [facility] ([facility]) [address] [place], [address], 03/05/2020 03:35:56 03/01/2003/02/2020 CBC w/ auto diff RBC 4.18 x10e6 /uL 4.14-5 .80 Not Available [facility] ([facility]) [address] [facility], [place], [address], 03/05/2020 03:35:56 03/01/2003/02/2020 CBC w/ auto diff hemoglobin 14.4 g/dL 13.0-1 7.7 Not Available [facility] ([facility]) [address] [facility], [place], [address], 03/05/2020 03:35:56 03/01/2003/02/2020 CBC w/ auto diff hematocrit 41.4 % 37.5-5 1.0 Not Available [facility] ([facility]) [address] [facility], [place], [address], 03/05/2020 03:35:56 03/01/2003/02/2020 CBC w/ auto diff MCV 99 fL 79-97 above high normal Not Available [facility] ([facility]) [address] [facility], [place], [address], 03/05/2020 03:35:56 03/01/2003/02/2020 CBC w/ auto diff MCH 34.4 pg 26.6-3 3.0 above high normal Not Available [facility] ([facility]) [address] [facility], [place], [address], 03/05/2020 03:35:56 03/01/2003/02/2020 CBC w/ auto diff MCHC 34.8 g/dL 31.5-3 5.7 Not Available [facility] ([facility]) [address] [place], [address], 03/05/2020 03:35:56 03/01/2003/02/2020 CBC w/ auto diff RDW 12.9 % 11.6-1 5.4 Not Available [facility] ([facility]) [address] [place], [address], 03/05/2020 03:35:56 03/01/2003/02/2020 CBC w/ auto diff platelets 321 x10e3 /uL 150-45 0 Not Available [facility] ([facility]) [address] [place], [address], 03/05/2020 03:35:56 03/01/20 20 03/02/2020 CBC w/ auto diff neutrophils 62 % not estab. Not Available [facility] ([facility]) [address] [facility], [place], [address], 03/05/2020 03:35:56 03/01/20 20 03/02/2020 CBC w/ auto diff lymphs 22 % not estab. Not Available [facility] ([facility]) [address] [place], [address], 03/05/2020 03:35:56 03/01/20 20 03/02/2020 CBC w/ auto diff monocytes 11 % not estab. Not Available [facility] ([facility]) [address] [place], [address], 03/05/2020 03:35:56 03/01/20 20 03/02/2020 CBC w/ auto diff eos 4 % not estab. Not Available [facility] ([facility]) [address] [facility], [place], [address], 03/05/2020 03:35:56 03/01/20 20 03/02/2020 CBC w/ auto diff basos 1 % not estab. Not Available [facility] ([facility]) [address] [facility], [place], [address], 03/05/2020 03:35:56 03/01/2003/02/2020 CBC w/ auto diff immature cells TEACHING ASSOCIATE Not Available [facility] ([facility]) [address] [place], [address], 03/05/2020 03:35:56 03/01/20 20 03/02/2020 CBC w/ auto diff neutrophils (absolute) 5.7 x10e3 /uL 1.4-7. 0 Not Available [facility] ([facility]) [address] [facility], [place], [address], 03/05/2020 03:35:56 03/01/20 20 03/02/2020 CBC w/ auto diff lymphs (absolute) 2.0 x10e3 /uL 0.7-3. 1 Not Available [facility] ([facility]) [address] [facility], [place], [address], 03/05/2020 03:35:56 03/01/20 20 03/02/2020 CBC w/ auto diff monocytes(ab solute) 1.0 x10e3 /uL 0.1-0. 9 above high normal Not Available [facility] ([facility]) [address] [facility], [place], [address], 03/05/2020 03:35:56 03/01/20 20 03/02/2020 CBC w/ auto diff eos (absolute) 0.3 x10e3 /uL 0.0-0. 4 Not Available [facility] ([facility]) [address] [facility], [place], [address], 03/05/2020 03:35:56 03/01/20 20 03/02/2020 CBC w/ auto diff baso (absolute) 0.1 x10e3 /uL 0.0-0. 2 Not Available [facility] ([facility]) [address] [facility], [place], [address], 03/05/2020 03:35:56 03/01/20 20 03/02/2020 CBC w/ auto diff immature granulocytes 0 % not estab. Not Available [facility] ([facility]) [address] [place], [address], 03/05/2020 03:35:56 03/01/20 20 03/02/2020 CBC w/ auto diff immature grans (abs) 0.0 x10e3 /uL 0.0-0. 1 Not Available [facility] ([facility]) [address] [place], [address], 03/05/2020 03:35:56 03/01/2003/02/2020 CBC w/ auto diff NRBC TEACHING ASSOCIATE Not Available [facility] ([facility]) [address] [place], [address], 03/05/2020 03:35:56 03/01/2003/02/2020 CBC w/ auto diff hematology comments: TEACHING ASSOCIATE Not Available [facility] ([facility]) [address] [place], [address], 03/05/2020 03:35:56 03/01/2003/02/2020 CMP, serum or plasm a glucose 77 mg/dL 65-99 Not Available [facility] ([facility]) [address] [place], [address], 03/05/2020 03:35:57 03/01/2003/02/2020 CMP, serum or plasm a BUN 11 mg/dL 6-24 Not Available [facility] ([facility]) [address] [place], [address], 03/05/2020 03:35:57 03/01/2003/02/2020 CMP, serum or plasm a creatinine 0.84 mg/dL 0.76-1 .27 Not Available [facility] ([facility]) [address] [place], [address], 03/05/2020 03:35:57 03/01/2003/02/2020 CMP, serum or plasm a eGFR if nonafricn AM 101 mL/mi n/1.7 3 >59 Not Available [facility] ([facility]) [address] [place], [address], 03/05/2020 03:35:57 03/01/2003/02/2020 CMP, serum or plasm a eGFR if africn AM 116 mL/mi n/1.7 3 >59 Not Available [facility] ([facility]) [address] [place], [address], 03/05/2020 03:35:57 03/01/2003/02/2020 CMP, serum or plasm a BUN/creatini ne ratio 13 9-20 Not Available [facility] ([facility]) [address] [place], [address], 03/05/2020 03:35:57 03/01/2003/02/2020 CMP, serum or plasm a sodium 141 mmol/ L 134-14 4 Not Available [facility] ([facility]) [address] [place], [address], 03/05/2020 03:35:57 03/01/2003/02/2020 CMP, serum or plasm a potassium 3.9 mmol/ L 3.5-5. 2 Not Available [facility] ([facility]) [address] [place], [address], 03/05/2020 03:35:57 03/01/2003/02/2020 CMP, serum or plasm a chloride 99 mmol/ L 96-106 Not Available [facility] ([facility]) [address] [place], [address], 03/05/2020 03:35:57 03/01/2003/02/2020 CMP, serum or plasm a carbon dioxide, total 25 mmol/ L 20-29 Not Available [facility] ([facility]) [address] [place], [address], 03/05/2020 03:35:57 03/01/2003/02/2020 CMP, serum or plasm a calcium 9.5 mg/dL 8.7-10 .2 Not Available [facility] ([facility]) [address] [place], [address], 03/05/2020 03:35:57 03/01/2003/02/2020 CMP, serum or plasm a protein, total 7.7 g/dL 6.0-8. 5 Not Available [facility] ([facility]) [address] [facility] [place], [address], 03/05/2020 03:35:57 03/01/2003/02/2020 CMP, serum or plasm a albumin 4.8 g/dL 3.8-4. 9 Not Available [facility] ([facility]) [address] [place] [place], [address], 03/05/2020 03:35:57 03/01/2003/02/2020 CMP, serum or plasm a globulin, total 2.9 g/dL 1.5-4. 5 Not Available [facility] ([facility]) [address] [facility] [place], [address], 03/05/2020 03:35:57 03/01/2003/02/2020 CMP, serum or plasm a A/G ratio 1.7 1.2-2. 2 Not Available [facility] ([facility]) [address] [facility] [place], [address], 03/05/2020 03:35:57 03/01/2003/02/2020 CMP, serum or plasm a bilirubin, total 0.5 mg/dL 0.0-1. 2 Not Available [facility] ([facility]) [address] [facility] [place], [address], 03/05/2020 03:35:57 03/01/2003/02/2020 CMP, serum or plasm a alkaline phosphatase 73 IU/L 39-117 Not Available [facility] ([facility]) [address] [facility] [place], [address], 03/05/2020 03:35:57 03/01/2003/02/2020 CMP, serum or plasm a AST (SGOT) 99 IU/L 0-40 above high normal Not Available [facility] ([facility]) [address] [facility] [place], [address], 03/05/2020 03:35:57 03/01/2003/02/2020 CMP, serum or plasm a ALT (SGPT) 68 IU/L 0-44 above high normal Not Available [facility] ([facility]) [address] [facility] [place], [address], 03/05/2020 03:35:57 03/01/2003/02/2020 lipid panel , serum cholesterol, total 224 mg/dL 100-19 9 above high normal Not Available [facility] ([facility]) [address] [facility], [place], [address], 03/05/2020 03:35:58 03/01/2003/02/2020 lipid panel , serum triglyceride s 162 mg/dL 0-149 above high normal Not Available [facility] ([facility]) [address] [facility], [place], [address], 03/05/2020 03:35:58 03/01/2003/02/2020 lipid panel , serum HDL cholesterol 56 mg/dL >39 Not Available [facility] ([facility]) [address] [facility], [place], [address], 03/05/2020 03:35:58 03/01/2003/02/2020 lipid panel , serum VLDL cholesterol geovany 29 mg/dL 5-40 Not Available [facility] ([facility]) [address] [facility], [place], [address], 03/05/2020 03:35:58 03/01/2003/02/2020 lipid panel , serum LDL chol calc ([facility]) 139 mg/dL 0-99 above high normal Not Available [facility] ([facility]) [address] [facility] [place], [address], 03/05/2020 03:35:58 03/01/2003/02/2020 lipid panel , serum comment: TEACHING ASSOCIATE Not Available [facility] ([facility]) [address] [place], [address], 03/05/2020 03:35:58 03/01/2003/02/2020 iron + total iron- nayeli ng capac ity (TIBC ), serum iron bind.cap.(TI BC) 374 ug/dL 250-45 0 Not Available [facility] ([facility]) [address] [facility], [place], [address], 03/05/2020 03:35:58 03/01/2003/02/2020 iron + total iron- nayeli ng capac ity (TIBC ), serum UIBC 259 ug/dL 111-34 3 Not Available [facility] ([facility]) [address] [place], [address], 03/05/2020 03:35:58 03/01/2003/02/2020 iron + total iron- nayeli ng capac ity (TIBC ), serum iron 115 ug/dL 38-169 Not Available [facility] ([facility]) [address] [place], [address], 03/05/2020 03:35:58 03/01/2003/02/2020 iron + total iron- nayeli ng capac ity (TIBC ), serum iron saturation 31 % 15-55 Not Available [facility] ([facility]) [address] [place], [address], 03/05/2020 03:35:58 03/01/2003/02/2020 HIV 1+2 Ab, rapid IA, serum , plasm a or blood HIV 1 Ab Negati ve negati ve Not Available [facility] ([facility]) [address] [place], [address], 03/05/2020 03:35:59 03/01/2003/02/2020 HIV 1+2 Ab, rapid IA, serum , plasm a or blood HIV 2 Ab Negati ve negati ve Not Available [facility] ([facility]) [address] [place], [address], 03/05/2020 03:35:59 03/01/2003/02/2020 HIV 1+2 Ab, rapid IA, serum , plasm a or blood interpretati on: Negati ve See RNA Refle x. Not Available [facility] ([facility]) [address] [facility], [place], [address], 03/05/2020 03:35:59 03/01/2003/04/2020 HIV 1+2 Ab, rapid IA, serum , plasm a or blood HIV 1 RNA qualitative Negati ve negati ve Negat daniela for HIV-1 RNA Not Available [facility] ([facility]) [address] [facility], [place], [address], 03/05/2020 03:35:59 03/01/2003/04/2020 HIV 1+2 Ab, rapid [...] clini gila indic ated. Not Available [facility] ([facility]) [address] [facility], [place], [address], 03/05/2020 03:35:59 03/01/2003/02/2020 vitam in B12 + folat e, serum or blood vitamin B12 460 pg/mL 232-12 45 Not Available [facility] ([facility]) [address] [facility], [place], [address], 03/05/2020 03:36:00 03/01/2003/02/2020 vitam in B12 + folat e, serum or blood folate (folic acid), serum 8.5 NG/mL >3.0 A serum folat e margarita ntrat ion of less than 3.1 ng/mL is consi dered to repre sent clini geovany defic iency . Not Available [facility] ([facility]) [address] [facility], [place], [address], 03/05/2020 03:36:00 03/01/20 20 03/02/2020 testo stero ne, free + total , serum testosterone , serum 381 NG/dL 264-91 6 Adult male refer ence inter hector is based on a popul ation of healt hy nonob aletha males (BMI <30) betwe en 19 and 39 years old. Silvana rose, et.al . JCEM 2017, 102;1 161-1 173. PMID: 92181 103. Not Available [facility] ([facility]) [address] [place], [address], 03/05/2020 03:36:00 03/01/2003/02/2020 testo stero ne, free + total , serum free testosterone (direct) 8.4 pg/mL 7.2-24 .0 Not Available [facility] ([facility]) [address] [place], [address], 03/05/2020 03:36:00 03/01/2003/01/2020 PSA, serum or plasm a reflex criteria Commen t The perce nt free PSA is perfo rmed on a refle x basis only when the total PSA is betwe en 4.0 and 10.0 ng/mL . Not Available [facility] ([facility]) [address] [place], [address], 03/05/2020 03:36:01 03/01/2003/02/2020 PSA, serum or plasm [...] t be inter prete d as absol [place] evide nce of the prese nce or absen ce of evert collins se. Not Available [facility] ([facility]) [address] [facility], [place], [address], 03/05/2020 03:36:01 03/01/2003/02/2020 HbA1c (hemo globi n A1c), blood hemoglobin A1C 5.0 % 4.8-5. 6 Predi abete s: 5.7 - 6.4 Diabe jolynn: >6.4 Glyce tracie contr ol for adult s with diabe jolynn: <7.0 Not Available [facility] ([facility]) [address] [facility], [place], [address], 03/05/2020 03:36:01 03/01/2003/02/2020 TSH, ultra -sens itive , serum TSH 4.570 uIU/m L 0.450- 4.500 above high normal Not Available [facility] ([facility]) [address] [place], [address], 03/05/2020 03:36:02 03/01/2003/02/2020 vitam in D, 25-hy [...] [place]: [facility] . 2. Marilyn gonsalez MF, Dipti cruz NC, Willem off-F michael i YEUNG, et al. Evalu ation , treat ment, and preve ntion of vitam in D defic iency : an Endoc rine Socie ty clini geovany pract ice guide line. JCEM. 2010; 96(7) :1911 -30. Not Available [facility] ([facility]) [address] [facility], [place], [address], 03/05/2020 03:36:03 03/01/2003/02/2020 hepat itis C Ab, [...] ion test (5507 13). Not Available [facility] ([facility]) [address] [facility], [place], [address], 03/05/2020 03:36:03 03/01/2003/02/2020 magne sium, serum or plasm a magnesium 2.2 mg/dL 1.6-2. 3 Not Available [facility] ([facility]) [address] [facility], [place], [address], 03/05/2020 03:36:04 03/01/2003/02/2020 shbg (sex hormo ne-bi nding globu soheila), serum sex horm binding glob, serum 69.4 nmol/ L 19.3-7 6.4 Not Available [facility] ([facility]) [address] [facility], [place], [address], 03/05/2020 03:36:05 03/02/2003/02/2020 elect rocpaco diogr am Rate & Rhythm normal normal Not Available [facility] [address] [place], [address], 03/01/2020 14:31:27 03/02/20 20 03/02/2020 simon maurer am Interpretati on Not Available [facility] [address] [place], [address], 03/01/2020 14:31:27 03/18/20 20 03/19/2020 hepat itis panel (A+B+ C), acute , serum hep A Ab, IgM Negati ve negati ve Not Available [facility] ([facility]) [address] [facility], [place], [address], 03/19/2020 05:37:07 03/18/2003/19/2020 hepat itis panel (A+B+ C), acute , serum HBsAg screen Negati ve negati ve Not Available [facility] ([facility]) [address] [facility], [place], [address], 03/19/2020 05:37:07 03/18/2003/19/2020 hepat itis panel (A+B+ C), acute , serum hep B core Ab, IgM Negati ve negati ve Not Available [facility] ([facility]) [address] [facility], [place], [address], 03/19/2020 05:37:07 03/18/2003/19/2020 hepat itis panel (A+B+ [...] ion test (5507 13). Not Available [facility] ([facility]) [address] [facility], [place], [address], 03/19/2020 05:37:07 07/15/19 22 07/15/2021 COMP. METAB OLIC PANEL (14) glucose 83 mg/dL 65-99 Not Available [facility] ([facility]) [address] [place], [address], 07/15/2021 16:36:38 07/15/19 22 07/15/2021 COMP. METAB OLIC PANEL (14) BUN 7 mg/dL 6-24 Not Available [facility] ([facility]) [address] [place], [address], 07/15/2021 16:36:38 07/15/19 22 07/15/2021 COMP. METAB OLIC PANEL (14) creatinine 0.70 mg/dL 0.76-1 .27 below low normal Not Available [facility] ([facility]) [address] [facility], [place], [address], 07/15/2021 16:36:38 07/15/19 22 07/15/2021 COMP. METAB [...] a race varia ble. Not Available [facility] ([facility]) [address] [facility], [place], [address], 07/15/2021 16:36:38 07/15/19 22 07/15/2021 COMP. METAB OLIC PANEL (14) BUN/creatini ne ratio 10 9-20 Not Available [facility] ([facility]) [address] [place], [address], 07/15/2021 16:36:38 07/15/19 22 07/15/2021 COMP. METAB OLIC PANEL (14) sodium 138 mmol/ L 134-14 4 Not Available [facility] ([facility]) [address] [place], [address], 07/15/2021 16:36:38 07/15/19 22 07/15/2021 COMP. METAB OLIC PANEL (14) potassium 4.7 mmol/ L 3.5-5. 2 Not Available [facility] ([facility]) [address] [place], [address], 07/15/2021 16:36:38 07/15/19 22 07/15/2021 COMP. METAB OLIC PANEL (14) chloride 99 mmol/ L 96-106 Not Available [facility] ([facility]) [address] [place], [address], 07/15/2021 16:36:38 07/15/19 22 07/15/2021 COMP. METAB OLIC PANEL (14) carbon dioxide, total 23 mmol/ L 20-29 Not Available [facility] ([facility]) [address] [place], [address], 07/15/2021 16:36:38 07/15/19 22 07/15/2021 COMP. METAB OLIC PANEL (14) calcium 9.7 mg/dL 8.7-10 .2 Not Available [facility] ([facility]) [address] [place], [address], 07/15/2021 16:36:38 07/15/19 22 07/15/2021 COMP. METAB OLIC PANEL (14) protein, total 8.0 g/dL 6.0-8. 5 Not Available [facility] ([facility]) [address] [place], [address], 07/15/2021 16:36:38 07/15/19 22 07/15/2021 COMP. METAB OLIC PANEL (14) albumin 5.1 g/dL 3.8-4. 9 above high normal Not Available [facility] ([facility]) [address] [place], [address], 07/15/2021 16:36:38 07/15/19 22 07/15/2021 COMP. METAB OLIC PANEL (14) globulin, total 2.9 g/dL 1.5-4. 5 Not Available [facility] ([facility]) [address] [place], [address], 07/15/2021 16:36:38 07/15/19 22 07/15/2021 COMP. METAB OLIC PANEL (14) A/G ratio 1.8 1.2-2. 2 Not Available [facility] ([facility]) [address] [place], [address], 07/15/2021 16:36:38 07/15/19 22 07/15/2021 COMP. METAB OLIC PANEL (14) bilirubin, total 0.4 mg/dL 0.0-1. 2 Not Available [facility] ([facility]) [address] [facility] [place], [address], 07/15/2021 16:36:38 07/15/19 22 07/15/2021 COMP. METAB OLIC PANEL (14) alkaline phosphatase 78 IU/L 44-121 Not Available [facility] ([facility]) [address] [facility] [place], [address], 07/15/2021 16:36:38 07/15/19 22 07/15/2021 COMP. METAB OLIC PANEL (14) AST (SGOT) 112 IU/L 0-40 above high normal Not Available [facility] ([facility]) [address] [facility] [place], [address], 07/15/2021 16:36:38 07/15/19 22 07/15/2021 COMP. METAB OLIC PANEL (14) ALT (SGPT) 91 IU/L 0-44 above high normal Not Available [facility] ([facility]) [address] [facility] [place], [address], 07/15/2021 16:36:38 07/15/19 22 07/15/2021 CBC, PLATE LET, NO DIFFE RENTI AL WBC 7.4 x10e3 /uL 3.4-10 .8 Not Available [facility] ([facility]) [address] [facility], [place], [address], 07/15/2021 16:36:39 07/15/19 22 07/15/2021 CBC, PLATE LET, NO DIFFE RENTI AL RBC 4.23 x10e6 /uL 4.14-5 .80 Not Available [facility] ([facility]) [address] [facility], [place], [address], 07/15/2021 16:36:39 07/15/19 22 07/15/2021 CBC, PLATE LET, NO DIFFE RENTI AL hemoglobin 14.2 g/dL 13.0-1 7.7 Not Available [facility] ([facility]) [address] [facility], [place], [address], 07/15/2021 16:36:39 07/15/19 22 07/15/2021 CBC, PLATE LET, NO DIFFE RENTI AL hematocrit 40.9 % 37.5-5 1.0 Not Available [facility] ([facility]) [address] [facility], [place], [address], 07/15/2021 16:36:39 07/15/19 22 07/15/2021 CBC, PLATE LET, NO DIFFE RENTI AL MCV 97 fL 79-97 Not Available [facility] ([facility]) [address] [facility], [place], [address], 07/15/2021 16:36:39 07/15/19 22 07/15/2021 CBC, PLATE LET, NO DIFFE RENTI AL MCH 33.6 pg 26.6-3 3.0 above high normal Not Available [facility] ([facility]) [address] [facility], [place], [address], 07/15/2021 16:36:39 07/15/19 22 07/15/2021 CBC, PLATE LET, NO DIFFE RENTI AL MCHC 34.7 g/dL 31.5-3 5.7 Not Available [facility] ([facility]) [address] [place], [address], 07/15/2021 16:36:39 07/15/19 22 07/15/2021 CBC, PLATE LET, NO DIFFE RENTI AL RDW 12.8 % 11.6-1 5.4 Not Available [facility] ([facility]) [address] [place], [address], 07/15/2021 16:36:39 07/15/19 22 07/15/2021 CBC, PLATE LET, NO DIFFE RENTI AL platelets 257 x10e3 /uL 150-45 0 Not Available [facility] ([facility]) [address] [place], [address], 07/15/2021 16:36:39 07/15/19 22 07/15/2021 CBC, PLATE LET, NO DIFFE RENTI AL NRBC TEACHING ASSOCIATE Not Available [facility] ([facility]) [address] [place], [address], 07/15/2021 16:36:39 07/15/19 22 07/15/2021 LIPID PANEL cholesterol, total 187 mg/dL 100-19 9 Not Available [facility] ([facility]) [address] [place], [address], 07/15/2021 16:36:40 07/15/19 22 07/15/2021 LIPID PANEL triglyceride s 120 mg/dL 0-149 Not Available [facility] ([facility]) [address] [place], [address], 07/15/2021 16:36:40 07/15/19 22 07/15/2021 LIPID PANEL HDL cholesterol 61 mg/dL >39 Not Available [facility] ([facility]) [address] [place], [address], 07/15/2021 16:36:40 07/15/19 22 07/15/2021 LIPID PANEL VLDL cholesterol geovany 21 mg/dL 5-40 Not Available [facility] ([facility]) [address] [facility] [place], [address], 07/15/2021 16:36:40 07/15/19 22 07/15/2021 LIPID PANEL LDL chol calc ([facility]) 105 mg/dL 0-99 above high normal Not Available [facility] ([facility]) [address] [facility] [place], [address], 07/15/2021 16:36:40 07/15/19 22 07/15/2021 LIPID PANEL comment: TEACHING ASSOCIATE Not Available [facility] ([facility]) [address] [place], [address], 07/15/2021 16:36:40 07/15/19 22 07/15/2021 HEPAT IC FUNCT ION PANEL (7) bilirubin, direct 0.16 mg/dL 0.00-0 .40 Not Available [facility] ([facility]) [address] [place], [address], 07/15/2021 16:36:40 07/15/19 22 07/15/2021 THYRO ID PANEL WITH TSH TSH 1.460 uIU/m L 0.450- 4.500 Not Available [facility] ([facility]) [address] [place], [address], 07/15/2021 16:36:41 07/15/19 22 07/15/2021 THYRO ID PANEL WITH TSH thyroxine (T4) 7.4 ug/dL 4.5-12 .0 Not Available [facility] ([facility]) [address] [place], [address], 07/15/2021 16:36:41 07/15/19 22 07/15/2021 THYRO ID PANEL WITH TSH T3 uptake 27 % 24-39 Not Available [facility] ([facility]) [address] [place], [address], 07/15/2021 16:36:41 07/15/19 22 07/15/2021 THYRO ID PANEL WITH TSH free thyroxine index 2.0 1.2-4. 9 Not Available [facility] ([facility]) [address] [place], [address], 07/15/2021 16:36:41 07/15/19 22 07/15/2021 IRON AND TIBC iron bind.cap.(TI BC) 370 ug/dL 250-45 0 Not Available [facility] ([facility]) [address] [place], [address], 07/15/2021 16:36:42 07/15/19 22 07/15/2021 IRON AND TIBC UIBC 266 ug/dL 111-34 3 Not Available [facility] ([facility]) [address] [place], [address], 07/15/2021 16:36:42 07/15/19 22 07/15/2021 IRON AND TIBC iron 104 ug/dL 38-169 Not Available [facility] ([facility]) [address] [place], [address], 07/15/2021 16:36:42 07/15/19 22 07/15/2021 IRON AND TIBC iron saturation 28 % 15-55 Not Available [facility] ([facility]) [address] [place], [address], 07/15/2021 16:36:42 07/15/19 22 07/14/2021 PSA TOTAL (REFL EX TO FREE) reflex criteria Commen t The perce nt free PSA is perfo rmed on a refle x basis only when the total PSA is betwe en 4.0 and 10.0 ng/mL . Not Available [facility] ([facility]) [address] [facility] [place], [address], 07/15/2021 16:36:42 07/15/19 22 07/15/2021 PSA TOTAL [...] t be inter prete d as absol [place] evide nce of the prese nce or absen ce of evert [place] se. Not Available [facility] ([facility]) [address] [facility], [place], [address], 07/15/2021 16:36:42 07/15/19 22 07/15/2021 HEMOG LOBIN A1C hemoglobin A1C 5.3 % 4.8-5. 6 Predi abete s: 5.7 - 6.4 Diabe jolynn: >6.4 Glyce tracie contr ol for adult s with diabe jolynn: <7.0 Not Available [facility] ([facility]) [address] [facility], [place], [address], 07/15/2021 16:36:43 07/15/19 22 07/15/2021 FOLAT E (FOLI C ACID) , SERUM folate (folic acid), serum 14.0 NG/mL >3.0 A serum folat e margarita ntrat ion of less than 3.1 ng/mL is consi dered to repre sent clini geovany defic iency . Not Available [facility] ([facility]) [address] [facility], [place], [address], 07/15/2021 16:36:43 07/15/19 22 07/15/2021 VITAM IN B12 vitamin B12 546 pg/mL 232-12 45 Not Available [facility] ([facility]) [address] [place], [address], 07/15/2021 16:36:44 07/15/19 22 07/15/2021 NEEL TIN ferritin 351 NG/mL 30-400 Not Available [facility] ([facility]) [address] [place], [address], 07/15/2021 16:36:45 07/15/19 22 07/15/2021 RETIC ULOCY TE COUNT reticulocyte count 1.2 % 0.6-2. 6 Not Available [facility] ([facility]) [address] [place], [address], 07/15/2021 16:36:45 01/20/20 25 01/20/2025 FE+TI BC+FE R iron bind.cap.(TI BC) 320 ug/dL 250-45 0 normal Not Available [facility] ([facility]) [address] [place], [address], 01/20/2025 12:36:56 01/20/20 25 01/20/2025 FE+TI BC+FE R UIBC 207 ug/dL 111-34 3 normal Not Available [facility] ([facility]) [address] [place], [address], 01/20/2025 12:36:56 01/20/20 25 01/20/2025 FE+TI BC+FE R iron 113 ug/dL 38-169 normal Not Available [facility] ([facility]) [address] [place], [address], 01/20/2025 12:36:56 01/20/20 25 01/20/2025 FE+TI BC+FE R iron saturation 35 % 15-55 normal Not Available [facility] ([facility]) [address] [facility] [place], [address], 01/20/2025 12:36:56 01/20/2001/20/2025 FE+TI BC+FE R ferritin 242 NG/mL 30-400 normal Not Available [facility] ([facility]) [address] [place], [address], 01/20/2025 12:36:56 01/20/2001/20/2025 TSH+F REE T4 TSH 4.370 uIU/m L 0.450- 4.500 normal Not Available [facility] ([facility]) [address] [place], [address], 01/20/2025 12:36:57 01/20/2001/20/2025 TSH+F REE T4 T4,free(dire ct) 0.96 NG/dL 0.82-1 .77 normal Not Available [facility] ([facility]) [address] [place], [address], 01/20/2025 12:36:57 01/20/2001/20/2025 CBC WITH DIFFE RENTI AL/PL ATELE T WBC 7.5 x10e3 /uL 3.4-10 .8 normal Not Available [facility] ([facility]) [address] [place], [address], 01/20/2025 12:36:57 01/20/2001/20/2025 CBC WITH DIFFE RENTI AL/PL ATELE T RBC 4.12 x10e6 /uL 4.14-5 .80 below low normal Not Available [facility] ([facility]) [address] [place], [address], 01/20/2025 12:36:57 01/20/20 25 01/20/2025 CBC WITH DIFFE RENTI AL/PL ATELE T hemoglobin 14.4 g/dL 13.0-1 7.7 normal Not Available [facility] ([facility]) [address] [place], [address], 01/20/2025 12:36:57 01/20/20 25 01/20/2025 CBC WITH DIFFE RENTI AL/PL ATELE T hematocrit 42.8 % 37.5-5 1.0 normal Not Available [facility] ([facility]) [address] [facility], [place], [address], 01/20/2025 12:36:57 01/20/20 25 01/20/2025 CBC WITH DIFFE RENTI AL/PL ATELE T MCV 104 fL 79-97 above high normal Not Available [facility] ([facility]) [address] [facility], [place], [address], 01/20/2025 12:36:57 01/20/20 25 01/20/2025 CBC WITH DIFFE RENTI AL/PL ATELE T MCH 35.0 pg 26.6-3 3.0 above high normal Not Available [facility] ([facility]) [address] [place], [address], 01/20/2025 12:36:57 01/20/20 25 01/20/2025 CBC WITH DIFFE RENTI AL/PL ATELE T MCHC 33.6 g/dL 31.5-3 5.7 normal Not Available [facility] ([facility]) [address] [place], [address], 01/20/2025 12:36:57 01/20/20 25 01/20/2025 CBC WITH DIFFE RENTI AL/PL ATELE T RDW 12.8 % 11.6-1 5.4 Not Available [facility] ([facility]) [address] [place], [address], 01/20/2025 12:36:57 01/20/20 25 01/20/2025 CBC WITH DIFFE RENTI AL/PL ATELE T platelets 197 x10e3 /uL 150-45 0 normal Not Available [facility] ([facility]) [address] [facility], [place], [address], 01/20/2025 12:36:57 01/20/20 25 01/20/2025 CBC WITH DIFFE RENTI AL/PL ATELE T neutrophils 63 % not estab. normal Not Available [facility] ([facility]) [address] [facility], [place], [address], 01/20/2025 12:36:57 01/20/20 25 01/20/2025 CBC WITH DIFFE RENTI AL/PL ATELE T lymphs 24 % not estab. normal Not Available [facility] ([facility]) [address] [facility], [place], [address], 01/20/2025 12:36:57 01/20/20 25 01/20/2025 CBC WITH DIFFE RENTI AL/PL ATELE T monocytes 11 % not estab. normal Not Available [facility] ([facility]) [address] [facility], [place], [address], 01/20/2025 12:36:57 01/20/20 25 01/20/2025 CBC WITH DIFFE RENTI AL/PL ATELE T eos 1 % not estab. normal Not Available [facility] ([facility]) [address] [facility], [place], [address], 01/20/2025 12:36:57 01/20/20 25 01/20/2025 CBC WITH DIFFE RENTI AL/PL ATELE T basos 1 % not estab. normal Not Available [facility] ([facility]) [address] [facility], [place], [address], 01/20/2025 12:36:57 01/20/20 25 01/20/2025 CBC WITH DIFFE RENTI AL/PL ATELE T immature cells TEACHING ASSOCIATE Not Available [facility] ([facility]) [address] [facility] [place] [place], [address], 01/20/2025 12:36:57 01/20/20 25 01/20/2025 CBC WITH DIFFE RENTI AL/PL ATELE T neutrophils (absolute) 4.7 x10e3 /uL 1.4-7. 0 normal Not Available [facility] ([facility]) [address] [facility], [place], [address], 01/20/2025 12:36:57 01/20/20 25 01/20/2025 CBC WITH DIFFE RENTI AL/PL ATELE T lymphs (absolute) 1.8 x10e3 /uL 0.7-3. 1 normal Not Available [facility] ([facility]) [address] [place], [address], 01/20/2025 12:36:57 01/20/20 25 01/20/2025 CBC WITH DIFFE RENTI AL/PL ATELE T monocytes(ab solute) 0.8 x10e3 /uL 0.1-0. 9 normal Not Available [facility] ([facility]) [address] [facility], [place], [address], 01/20/2025 12:36:57 01/20/20 25 01/20/2025 CBC WITH DIFFE RENTI AL/PL ATELE T eos (absolute) 0.1 x10e3 /uL 0.0-0. 4 normal Not Available [facility] ([facility]) [address] [place], [address], 01/20/2025 12:36:57 01/20/20 25 01/20/2025 CBC WITH DIFFE RENTI AL/PL ATELE T baso (absolute) 0.1 x10e3 /uL 0.0-0. 2 normal Not Available [facility] ([facility]) [address] [place], [address], 01/20/2025 12:36:57 01/20/20 25 01/20/2025 CBC WITH DIFFE RENTI AL/PL ATELE T immature granulocytes 0 % not estab. Not Available [facility] ([facility]) [address] [facility], [place], [address], 01/20/2025 12:36:57 01/20/20 25 01/20/2025 CBC WITH DIFFE RENTI AL/PL ATELE T immature grans (abs) 0.0 x10e3 /uL 0.0-0. 1 Not Available [facility] ([facility]) [address] [facility], [place], [address], 01/20/2025 12:36:57 01/20/20 25 01/20/2025 CBC WITH DIFFE RENTI AL/PL ATELE T NRBC TEACHING ASSOCIATE Not Available [facility] ([facility]) [address] [facility], [place], [address], 01/20/2025 12:36:57 01/20/20 25 01/20/2025 CBC WITH DIFFE RENTI AL/PL ATELE T hematology comments: TEACHING ASSOCIATE Not Available [facility] ([facility]) [address] [facility], [place], [address], 01/20/2025 12:36:57 01/20/20 25 01/20/2025 COMP. METAB OLIC PANEL (14) glucose COMMEN T mg/dL Test not perfo rmed. Serum was in conta ct with cells when recei parish which will make the resul t inacc urate . Not Available [facility] ([facility]) [address] [facility], [place], [address], 01/20/2025 12:36:58 01/20/20 25 01/20/2025 COMP. METAB OLIC PANEL (14) BUN 4 mg/dL 6-24 below low normal Not Available [facility] ([facility]) [address] [facility], [place], [address], 01/20/2025 12:36:58 01/20/20 25 01/20/2025 COMP. METAB OLIC PANEL (14) creatinine 0.46 mg/dL 0.76-1 .27 below low normal Not Available [facility] ([facility]) [address], [place], [address], 01/20/2025 12:36:58 01/20/20 25 01/20/2025 COMP. METAB OLIC PANEL (14) eGFR 122 mL/mi n/1.7 3 >59 normal Not Available [facility] ([facility]) [address] [facility], [place], [address], 01/20/2025 12:36:58 01/20/20 25 01/20/2025 COMP. METAB OLIC PANEL (14) BUN/creatini ne ratio 9 9-20 normal Not Available [facility] ([facility]) [address] [facility], [place], [address], 01/20/2025 12:36:58 01/20/20 25 01/20/2025 COMP. METAB OLIC PANEL (14) sodium 140 mmol/ L 134-14 4 normal Not Available [facility] ([facility]) [address] [facility], [place], [address], 01/20/2025 12:36:58 01/20/20 25 01/20/2025 COMP. METAB OLIC PANEL (14) potassium COMMEN T mmol/ L Test not perfo rmed. Serum was in conta ct with cells when recei parish which will make the resul t inacc urate . Not Available [facility] ([facility]) [address] [facility], [place], [address], 01/20/2025 12:36:58 01/20/20 25 01/20/2025 COMP. METAB OLIC PANEL (14) chloride 99 mmol/ L 96-106 normal Not Available [facility] ([facility]) [address] [facility], [place], [address], 01/20/2025 12:36:58 01/20/20 25 01/20/2025 COMP. METAB OLIC PANEL (14) carbon dioxide, total 21 mmol/ L 20-29 normal Not Available [facility] ([facility]) [address] [place], [address], 01/20/2025 12:36:58 01/20/2001/20/2025 COMP. METAB OLIC PANEL (14) calcium 8.9 mg/dL 8.7-10 .2 normal Not Available [facility] ([facility]) [address] [place], [address], 01/20/2025 12:36:58 01/20/2001/20/2025 COMP. METAB OLIC PANEL (14) protein, total 7.6 g/dL 6.0-8. 5 normal Not Available [facility] ([facility]) [address] [place], [address], 01/20/2025 12:36:58 01/20/20 25 01/20/2025 COMP. METAB OLIC PANEL (14) albumin 4.3 g/dL 3.8-4. 9 normal Not Available [facility] ([facility]) [address] [place], [address], 01/20/2025 12:36:58 01/20/2001/20/2025 COMP. METAB OLIC PANEL (14) globulin, total 3.3 g/dL 1.5-4. 5 Not Available [facility] ([facility]) [address] [place], [address], 01/20/2025 12:36:58 01/20/2001/20/2025 COMP. METAB OLIC PANEL (14) bilirubin, total 0.8 mg/dL 0.0-1. 2 normal Not Available [facility] ([facility]) [address] [place], [address], 01/20/2025 12:36:58 01/20/20 25 01/20/2025 COMP. METAB [...] 129 48 - 129 Not Available [facility] ([facility]) [address] [place], [address], 01/20/2025 12:36:58 01/20/20 25 01/20/2025 COMP. METAB OLIC PANEL (14) AST (SGOT) 121 IU/L 0-40 above high normal Not Available [facility] ([facility]) [address] [place], [address], 01/20/2025 12:36:58 01/20/20 25 01/20/2025 COMP. METAB OLIC PANEL (14) ALT (SGPT) 29 IU/L 0-44 normal Not Available [facility] ([facility]) [address] [place], [address], 01/20/2025 12:36:58 01/20/20 25 01/20/2025 VITAM IN B12 AND FOLAT E vitamin B12 716 pg/mL 232-12 45 normal Not Available [facility] ([facility]) [address] [place], [address], 01/20/2025 12:36:59 01/20/20 25 01/20/2025 VITAM IN B12 AND FOLAT E folate (folic acid), serum 14.4 NG/mL >3.0 normal A serum folat e margarita ntrat ion of less than 3.1 ng/mL is consi dered to repre sent clini geovany defic iency . Not Available [facility] ([facility]) [address] [facility], [place], [address], 01/20/2025 12:36:59 01/20/2001/20/2025 HEMOG LOBIN A1C hemoglobin A1C 5.3 % 4.8-5. 6 normal Predi abete s: 5.7 - 6.4 Diabe jolynn: >6.4 Glyce tracie contr ol for adult s with diabe jolynn: <7.0 Not Available [facility] ([facility]) [address] [facility], [place], [address], 01/20/2025 12:37:00 01/20/2001/20/2025 VITAM IN D, 25-HY DROXY vitamin D, 25-hydroxy 40.7 NG/mL 30.0-1 00.0 Vitam in D defic iency has been defin ed by the Insti tute of Medic ine and an Endoc [facility] Socie ty pract ice guide line as a level of serum 25-OH vitam in D less than 20 ng/mL (1,2) . The Endoc rine Socie ty went on to [facility] er defin e vitam in D insuf ficie ncy as a level betwe en 21 and 29 ng/mL (2). 1. IOM (Inst itute of Medic ine). 2010. Dieta ry refer ence intak es for calci um and D. Shawn gallegos [place]: The Natio nal [facility] Press . 2. Marilyn gonsalez MF, Dipti cruz [place], Willem off-F michael i YEUNG, et al. Evalu ation , treat ment, and preve ntion of vitam in D defic iency : an Endoc rine Socie ty clini geovany pract ice guide line. JCEM. 2010; 96(7) :1911 -30. Not Available [facility] ([facility]) [address] [facility], [place], [address], 01/20/2025 12:37:01 01/20/20 25 01/20/2025 MAGNE SIUM magnesium 2.0 mg/dL 1.6-2. 3 normal Not Available [facility] ([facility]) [address] [facility], [place], [address], 01/20/2025 12:37:01 09/27/19 18 09/26/2017 XR, shoul nando, 2 or more view No observ ation record ed. [email or web address] [facility], [facility] [address] [place], [address], 09/27/2017 09:58:30 03/03/20 20 03/01/2020 elect rocar diogr am No observ ation record ed. BARCODE [facility] [address] [place], [address], 03/03/2020 10:24:43 03/03/20 20 03/01/2020 elect rocar diogr am No observ ation record ed. [email or web address] [place] [address] [address] [place], [address], 03/03/2020 13:43:39 01/23/[address], head, w/o contr ast No observ ation record ed. [address], [place], [address], 01/27/2025 13:05:34 Result Notes None recorded. Problems Name Problem SNOMED Code Status Onset Date Resolution Date Notes Provider Name and Address Organization Details Recorded Time Hypertensive disorder 42433998 Active 2016 MOHAMUD Rojas - [facility] 7 14:17:22 Hyperlipidemi a 28229568 Active 2016 MOHAMUD Rojas - [facility] 7 14:17:33 Pain of shoulder region 39772330 Active 2016 David Tobin MD [address], [place], [address] , [place] - [facility] 7 20:36:14 Neck pain 19926870 Active 2016 David Tobin MD [address], [place], [address] , [place] - [facility] 7 20:36:47 Acquired hypothyroidis m 821165708 Active 2017 Lori Salcedo null, [place] - [facility] 8 14:17:03 Initial insomnia 45223694 Active 2017 Lori Salcedo null, [place] - [facility] 8 17:54:02 Conduction disorder of the heart 56386610 Active 2019 Faustina Carlton null, [place] - [facility] 0 14:31:32 Nicotine dependence 42303179 Active 2019 Faustina Carlton null, [place] - [facility] 0 15:26:29 Complaining of erectile dysfunction Active 2019 Faustina Carlton [place] - [facility] 0 15:26:30 Liver enzymes outside reference range 808835945 Active 2019 Faustina Carlton [place] - [facility] 0 11:09:08 Harmful pattern of use of alcohol 37909581 Active 2019 Faustina Carlton [place] - [facility] 0 11:09:11 Anemia 225434475 Active 2021 Faustina Carlton [place] - [facility] 2 08:57:52 Decreased hearing 942249772 Active 2024 Crystal Holly null, [place] - [facility] 5 08:15:15 Near syncope 193699928 Active 2024 Marjan Call, KENDRA [address], [place], [address] , [place] - [facility] 5 08:37:06 Alcohol use disorder Active 2024 Marjan Call, NURSE DISCHARGE [address], [place], [address] , [place] - [facility] 08:38:18 Problem Notes None recorded. Procedures Surgical History Date Name Laterality Status Provider Name and Address Organization Details Recorded Time Colonoscopy completed Josefina Carballo [place] - [facility] 12/28/2016 14:18:40 Holster elec/combo vad, rep completed Josefina Carballo [place] - [facility] 12/28/2016 14:19:07 Imaging Results None recorded. Procedure Notes None recorded. Medical Equipment None Reported. Allergies Allergen ID Allergen Name Allergen Category Reaction Reaction Severity Criticality Documentation Date Start Date Code Code System Note Provider Name and Address Organization Details Recorded Time 36335 acetamino phen / hydrocodo ne medicatio n Not available Not available Not available 02/18/20162007 59463 2 RxNorm Not Available [facility] 6 08:28:18 42304 naproxen medicatio n itching Not available Not available 02/18/20162007 7258 RxNorm Not Available [facility] 6 10:03:26 Medications Name Sig Start Date [...] Completi on: 02/16/20 14;Indic ation: Pain - (160693 00) Not Available Not Available Not Available [...] Address Organization Details Last Updated DateTime 2 02184.7 7 g 80 /min 98 % 18 /min 138/82 mm[Hg] Crystal September [place] - [facility] 2 08:31:56 Date Recorded Body height Body mass index (BMI) Body weight Heart rate Oxygen saturation Respiratory rate Systolic And Diastolic Provider Name and Address Organization Details Last Updated DateTime 8 177.8 cm 29 kg/m2 30400.6 6 g 68 /min 98 % 18 /min 120/76 mm[Hg] Crystal Holly [place] - [facility] 8 15:13:36 Date Recorded Body height Body mass index (BMI) Body weight Heart rate Oxygen saturation Respiratory rate Pain severity - 0-10 verbal numeric rating [Score] - Reported Systolic And Diastolic Provider Name and Address Organization Details Last Updated DateTime 5 177.8 cm 25.7 kg/m2 85023.0 3 g 63 /min 98 % 18 /min 3 126/82 mm[Hg] Crystal Holly [place] - [facility] 5 08:19:37 Date Recorded Body weight Body temperature Respiratory rate Oxygen saturation Heart rate Systolic And Diastolic Provider Name and Address Organization Details Last Updated DateTime 0 34276.2 1 g 98 [degF] 18 /min 98 % 76 /min 124/74 mm[Hg] Shruthi Sharp [place] - [facility] 0 14:13:46 Date Recorded Body weight Body temperature Respiratory rate Oxygen saturation Heart rate Provider Name and Address Organization Details Last Updated DateTime 0 74479.0 3 g 98.2 [degF] 18 /min 97 % 77 /min Shruthi Sharp [place] - [facility] 0 10:38:31 Social History Question Answer Notes LastModified by [employer] Details LastModified Time Tobacco Smoking Status Never Smoker MOHAMUD Rojas - [facility] 12/28/2016 14:18:13 What Was The Date Of Your Most Recent Tobacco Screening? 01/19/2025 Information not available 01/19/2025 Has Tobacco Cessation Counseling Been Provided? Yes Information not available 01/19/2025 On What Date Was Tobacco Cessation Counseling Provided? 01/19/2025 Information not available 01/19/2025 Sex: Male Functional Status Question Answer Note LastModified by Informativeizat ion Details LastModified Time Do you use [...] preservative free, adsorbed 7 completed Not Available [facility] 01/19/2025 08:09:19 Tdap 3 completed Not Available [facility] 01/19/2025 08:09:19 influenza, unspecified formulation 3 completed Not Available [facility] 06/14/2019 02:21:32 influenza, unspecified formulation 4 completed Not Available [facility] 06/14/2019 02:21:32 Tdap 3 completed Not Available [facility] 06/14/2019 02:21:32 Past Encounters Encounter ID Performer Location Encounter Start Date Encounter Closed Date Diagnosis/Indication Diagnosis SNOMED-CT Code Diagnosis ICD10 Code Diagnosis IMO Codes Diagnosis Note [id number] David Tobin MD [place] [address] MOHAMUD BURROWS [address] 12/28/2016 13:59:38 12/28/2016 16:06:53 Body mass index 30+ - obesity 835136363 Z68.39 Pain of sh oulder region 72926757 M25.512 Hyperlipidemia 66794017 E78.5 Hypertensive disorder 38 357184 I10 Neck pain 42660289 M54.2 [id number] Martin Richards MD [place] [address] [place] [address] 07/09/2017 16:12:45 07/09/2017 19:57:31 Chest pain 07065535 R07.9 Family his tory of diabetes mellitus type 2 595565947 Z83.3 Tremor 07932526 R25.1 Headache 71056162 R51 [id number] Martin Richards MD [place] [address] [place] [address] 09/26/2017 15:02:58 09/26/2017 16:32:34 Acquired hypothyroidism 675413322 E03.9 Hypertensive disorder 38 805924 I10 Hyperlipidemia 77344737 E78.5 Pain of sh oulder region 31886966 M25.511 Body mass index 25-29 - overweight 775501621 Z68.29 Pruritic rash 42104025 L 28.2 Chronic neck pain 477193 2418 107 M54.2 Insomnia 458365954 G47.0 0 [id number] Faustina Sharma [facility] [address] [place], [place] [address] [place] [address] 03/01/2020 13:52:24 03/01/2020 16:06:23 Paresthesia of lower extremity 292103548 R20.2 bilaterall y Paresthesi a of upper limb 82622498 R20.2 bilaterall y Fatigue 39884964 R53.83 Dizziness 795850430 R42 at times Acquired hypothyroidism 875264363 E03.9 is on no medication Hyperlipidemia 17263072 E78.5 is on no medication Conduction disorder of the heart 98415844 I45.9 Viral screening 88273684 4 Z11.59 Screening for malignant neoplasm of prostate 574741730 Z12.5 Complainin g of erectile dysfunction 285456645 N52.9 Nicotine dependence 5629 4008 F17.200 Pain of mu ltiple joints 16560419 M25.50 [id number] Faustina Sharma [facility] [address] [place], [place] [address] [place] [place] [address] 03/18/2020 10:05:37 03/18/2020 11:11:41 Vitamin D deficiency 30397743 E55.9 Acquired hypothyroidism 786981438 E03.9 is on no medication Hyperlipidemia 79503107 E78.5 modify diet and increase exercise as discussed in the office with pt Liver enzy mes outside reference range 502642424 R94.5 Harmful pa ttern of use of alcohol 51890317 F10.10 encouraged pt to decrease use of alcohol and to eat at more regularly intervals [id number] Faustina Sharma [facility] [address] [place], [place] [address] [place] [address] 07/14/2021 08:25:30 07/14/2021 09:15:35 Acquired hypothyroidism 883151709 E03.9 checking labs today Harmful pa ttern of use of alcohol 88796776 F10.10 encouraged pt to decrease use of alcohol and to eat at more regularly intervals Hypertensive disorder 38 029979 I10 BP controlled 138/82 Hyperlipidemia 51540909 E78.5 modify diet and increase exercise as discussed in the office with pt Pain of sh oulder region 48348220 M25.519 toradol and celestone given today in office Vitamin D deficiency 347 00721 E55.9 checking labs today Nicotine dependence 5629 4008 F17.200 encouraged pt to try to decrease amount Adult heal th examination 358752503 Z00.00 Screening for malignant neoplasm of prostate 423840268 Z12.5 Anemia 005552146 D64.9 checking status today Endocrine/ metabolic screening 478417102 Z13.228 Chronic low back pain 27 8606715 M54.50 toradol and celestone given today in office Spasm of back muscles 20 3922477 M62.830 toradol and celestone given today in office [id number] Marjan Call NURSE DISCHARGE [facility] [address] [address] 01/19/2025 08:07:53 01/19/2025 08:51:20 Overweight in adulthood with body mass index of 25 or more but less than 30 519651255 E66.3 Z68.25 4033486740 Nicotine dependence 5629 4008 F17.200 67606600 Near syncope 938573565 R 55 233827 Alcohol use disorder 048 6899657 F10.20 65210870 Health Concerns Section Related Observation LastModified by Organization Detai ls LastModified Time None Recorded Concern Status LastModified by Organization Details LastModified Time None Recorded Advance Directives Directive None Recorded Payers Insurance Date Sequence Insurance Name Policy Number Policy Juarez Covered Member ID Juarez Member ID Guarantor Name 02/27/2025 1 [place] [id number] Serafin Redd [id number] Serafin Redd 01/13/2025 1 [place] [id number] Serafin Redd [id number] Serafin Redd Notes Date Note Type [...] abdomen - fell 3 weeks Marjan Call, NURSE DISCHARGE [address], [place], [address], [place] - [facility] 01/19/2025 08:51:03
--- OUTSIDE RECORDS SUMMARY | 2025-04-20 06:51 | XMS_ITS | Clinical Summary ---
Author Organization [facility] Address [address] [place] [address] Care Team Providers Care Licensed Land Surveyor Name Role Phone Pcp, No Primary Care Provider Unavailabl e Allergies Active Allergy Reactions Criticality Noted Date Comments Hydrocodone-Acetaminophen Other - please document in the comment field Low 11/15/2012 Medications atorvastatin (Lipitor) 20 MG tablet Take 1 tablet (20 mg) by mouth 1 (one) time each day in the morning. 4 Active ergocalciferol 1.25 MG (99617 UT) capsule every 14 (fourteen) days. Sunday [...] C Screening 1967 [facility]-Infant/Child/Adol SDOH Screenings 1967 [id number] Vaccine (#1) 11/19/1972 [facility]- SDOH Screenings 11/19/1985 [...] this topic Medical Devices Implanted Type Area Fish Culturist Device Identifier Shelf Expiration Date Model / Serial / Lot Lens Monofocal Clear [id number] 21.0 - [id number] Implanted:Qty: 1 on 2023 by Eitan Meza MD at [facility] Left: Eye [employer]-[id number] 04/10/2027 CC60WF.210 / [id number] / [id number] Lens Monofocal Clear [id number] 20.5 - [id number] Implanted:Qty: 1 on 12/04/2023 by Eitan Meza MD at [facility] Right: Eye [employer]-[id number] 05/23/2027 CC60WF.205 / [id number] 2 / [id number] Insurance VALENTE Care Teams Licensed Land Surveyor Relationship Specialty Start Date End Date Pcp, [place] [address] PCP - General Family Medicine 08/23/23
--- OUTSIDE RECORDS SUMMARY | 2025-04-20 06:51 | XMS_ITS | Continuity of Care Document ---
Author Organization MOHAMUD Marcelo [facility] Address [address] MOHAMUD MORRIS [address] Assessment No assessment recorded. Plan of Treatment Reminders Order Date Submit Date Provider Last Modified By Organization Details Last Modified Time Details Appointments None recorded. Lab CBC w/ auto diff 2024 025 [facility]I [facility], [address], [place], [address], 12:36:57 magnesium, serum or plasma 2024 025 [facility], [address], [place], [address], 12:37:01 TSH + free T4, serum 2024 025 [facility], [address], [place], [address], 12:36:57 HbA1c (hemoglobi n A1c), blood 2024 025 [facility], [address], [place], [address], 5 12:37:00 cobalamin and folate panel, serum 2024 025 [facility], [address], [place], [address], 12:36:59 vitamin D, 25-hydroxy , total, serum 2024 025 [facility], [address], [address], [place], [address], 12:37:01 iron + TIBC + ferritin, serum 2024 025 [facility], [address], [address], [place], [address], 12:36:56 CMP, serum or plasma 2024 025 [facility], [address], [place], [address], 12:36:58 Referral None recorded. Procedures None recorded. Surgeries None recorded. Imaging CT, head, w/o contrast - call Erika at to schedule 2024 025 [facility], [address] [place] [address], [address], 12:52:30 Medication Orders None recorded. Patient TargetsNo targets recorded. Patient Instructions Encounter Date Encounter Id Patient Instructions Last Modified By Organization Details Last Modified Time 01/19/2025 [id number] smoking cessatio n counseling, greater than 3 minutes up to 10 minutes* Not available 01/19/2025 08:17:03 body mass index: care instructions Not available 01/19/2025 09:58:37 learning about healthy weight Not available 01/19/2025 09:58:37 Discussed if symptoms returned, recommend ED evaluation Advised to take medication as directed Will call with results of labs and imaging once available Discussed longterm effect of chronic alcoholism To call office for questions, concerns or issues Not available 01/19/2025 08:47:49 Reason for Referral None Reported. Results Created Date Observation Date Name Description Value Unit Range Abnormal Flag Note LastModifiedBy Organization Detail LastModifiedTime 01/20/20 25 01/20/2025 FE+TI BC+FE R iron bind.cap.(TI BC) 320 ug/dL 250-45 0 normal Not Available [facility] ([facility]) [address] [place], [address], 01/20/2025 12:36:56 01/20/20 25 01/20/2025 FE+TI BC+FE R UIBC 207 ug/dL 111-34 3 normal Not Available [facility] ([facility]) [address] [place], [address], 01/20/2025 12:36:56 01/20/20 25 01/20/2025 FE+TI BC+FE R iron 113 ug/dL 38-169 normal Not Available [facility] ([facility]) [address] [place], [address], 01/20/2025 12:36:56 01/20/20 25 01/20/2025 FE+TI BC+FE R iron saturation 35 % 15-55 normal Not Available [facility] ([facility]) [address] [place], [address], 01/20/2025 12:36:56 01/20/2001/20/2025 FE+TI BC+FE R ferritin 242 NG/mL 30-400 normal Not Available [facility] ([facility]) [address] [place], [address], 01/20/2025 12:36:56 01/20/2001/20/2025 TSH+F REE T4 TSH 4.370 uIU/m L 0.450- 4.500 normal Not Available [facility] ([facility]) [address] [place], [address], 01/20/2025 12:36:57 01/20/20 25 01/20/2025 TSH+F REE T4 T4,free(dire ct) 0.96 NG/dL 0.82-1 .77 normal Not Available [facility] ([facility]) [address] [place], [address], 01/20/2025 12:36:57 01/20/20 25 01/20/2025 CBC WITH DIFFE RENTI AL/PL ATELE T WBC 7.5 x10e3 /uL 3.4-10 .8 normal Not Available [facility] ([facility]) [address] [facility], [place], [address], 01/20/2025 12:36:57 01/20/20 25 01/20/2025 CBC WITH DIFFE RENTI AL/PL ATELE T RBC 4.12 x10e6 /uL 4.14-5 .80 below low normal Not Available [facility] ([facility]) [address] [facility], [place], [address], 01/20/2025 12:36:57 01/20/20 25 01/20/2025 CBC WITH DIFFE RENTI AL/PL ATELE T hemoglobin 14.4 g/dL 13.0-1 7.7 normal Not Available [facility] ([facility]) [address] [place], [address], 01/20/2025 12:36:57 01/20/20 25 01/20/2025 CBC WITH DIFFE RENTI AL/PL ATELE T hematocrit 42.8 % 37.5-5 1.0 normal Not Available [facility] ([facility]) [address] [place], [address], 01/20/2025 12:36:57 01/20/20 25 01/20/2025 CBC WITH DIFFE RENTI AL/PL ATELE T MCV 104 fL 79-97 above high normal Not Available [facility] ([facility]) [address] [place], [address], 01/20/2025 12:36:57 01/20/20 25 01/20/2025 CBC WITH DIFFE RENTI AL/PL ATELE T MCH 35.0 pg 26.6-3 3.0 above high normal Not Available [facility] ([facility]) [address] [facility], [place], [address], 01/20/2025 12:36:57 01/20/20 25 01/20/2025 CBC WITH DIFFE RENTI AL/PL ATELE T MCHC 33.6 g/dL 31.5-3 5.7 normal Not Available [facility] ([facility]) [address] [place], [address], 01/20/2025 12:36:57 01/20/20 25 01/20/2025 CBC WITH DIFFE RENTI AL/PL ATELE T RDW 12.8 % 11.6-1 5.4 Not Available [facility] ([facility]) [address] [facility], [place], [address], 01/20/2025 12:36:57 01/20/20 25 01/20/2025 CBC WITH DIFFE RENTI AL/PL ATELE T platelets 197 x10e3 /uL 150-45 0 normal Not Available [facility] ([facility]) [address] [place], [address], 01/20/2025 12:36:57 01/20/20 25 01/20/2025 CBC WITH DIFFE RENTI AL/PL ATELE T neutrophils 63 % not estab. normal Not Available [facility] ([facility]) [address] [place], [address], 01/20/2025 12:36:57 01/20/20 25 01/20/2025 CBC WITH DIFFE RENTI AL/PL ATELE T lymphs 24 % not estab. normal Not Available [facility] ([facility]) [address] [place], [address], 01/20/2025 12:36:57 01/20/20 25 01/20/2025 CBC WITH DIFFE RENTI AL/PL ATELE T monocytes 11 % not estab. normal Not Available [facility] ([facility]) [address] [place], [address], 01/20/2025 12:36:57 01/20/20 25 01/20/2025 CBC WITH DIFFE RENTI AL/PL ATELE T eos 1 % not estab. normal Not Available [facility] ([facility]) [address] [place], [address], 01/20/2025 12:36:57 01/20/20 25 01/20/2025 CBC WITH DIFFE RENTI AL/PL ATELE T basos 1 % not estab. normal Not Available [facility] ([facility]) [address] [place], [address], 01/20/2025 12:36:57 01/20/20 25 01/20/2025 CBC WITH DIFFE RENTI AL/PL ATELE T immature cells CAD MANAGER Not Available [facility] ([facility]) [address] [place], [address], 01/20/2025 12:36:57 01/20/20 25 01/20/2025 CBC WITH DIFFE RENTI AL/PL ATELE T neutrophils (absolute) 4.7 x10e3 /uL 1.4-7. 0 normal Not Available [facility] ([facility]) [address] [place], [address], 01/20/2025 12:36:57 01/20/20 25 01/20/2025 CBC WITH DIFFE RENTI AL/PL ATELE T lymphs (absolute) 1.8 x10e3 /uL 0.7-3. 1 normal Not Available [facility] ([facility]) [address] [place], [address], 01/20/2025 12:36:57 01/20/20 25 01/20/2025 CBC WITH DIFFE RENTI AL/PL ATELE T monocytes(ab solute) 0.8 x10e3 /uL 0.1-0. 9 normal Not Available [facility] ([facility]) [address] [place], [address], 01/20/2025 12:36:57 01/20/20 25 01/20/2025 CBC WITH DIFFE RENTI AL/PL ATELE T eos (absolute) 0.1 x10e3 /uL 0.0-0. 4 normal Not Available [facility] ([facility]) [address] [facility], [place], [address], 01/20/2025 12:36:57 01/20/20 25 01/20/2025 CBC WITH DIFFE RENTI AL/PL ATELE T baso (absolute) 0.1 x10e3 /uL 0.0-0. 2 normal Not Available [facility] ([facility]) [address] [facility], [place], [address], 01/20/2025 12:36:57 01/20/20 25 01/20/2025 CBC WITH DIFFE RENTI AL/PL ATELE T immature granulocytes 0 % not estab. Not Available [facility] ([facility]) [address] [facility], [place], [address], 01/20/2025 12:36:57 01/20/2001/20/2025 CBC WITH DIFFE RENTI AL/PL ATELE T immature grans (abs) 0.0 x10e3 /uL 0.0-0. 1 Not Available [facility] ([facility]) [address] [place], [address], 01/20/2025 12:36:57 01/20/2001/20/2025 CBC WITH DIFFE RENTI AL/PL ATELE T NRBC CAD MANAGER Not Available [facility] ([facility]) [address] [place], [address], 01/20/2025 12:36:57 01/20/20 25 01/20/2025 CBC WITH DIFFE RENTI AL/PL ATELE T hematology comments: CAD MANAGER Not Available [facility] ([facility]) [address] [place], [address], 01/20/2025 12:36:57 01/20/20 25 01/20/2025 COMP. METAB OLIC PANEL (14) glucose COMMEN T mg/dL Test not perfo rmed. Serum was in conta ct with cells when recei parish which will make the resul t inacc urate . Not Available [facility] ([facility]) [address] [place], [address], 01/20/2025 12:36:58 01/20/20 25 01/20/2025 COMP. METAB OLIC PANEL (14) BUN 4 mg/dL 6-24 below low normal Not Available [facility] ([facility]) [address] [place], [address], 01/20/2025 12:36:58 01/20/20 25 01/20/2025 COMP. METAB OLIC PANEL (14) creatinine 0.46 mg/dL 0.76-1 .27 below low normal Not Available [facility] ([facility]) [address] [place], [address], 01/20/2025 12:36:58 01/20/20 25 01/20/2025 COMP. METAB OLIC PANEL (14) eGFR 122 mL/mi n/1.7 3 >59 normal Not Available [facility] ([facility]) [address] [place], [address], 01/20/2025 12:36:58 01/20/20 25 01/20/2025 COMP. METAB OLIC PANEL (14) BUN/creatini ne ratio 9 9-20 normal Not Available [facility] ([facility]) [address] [place], [address], 01/20/2025 12:36:58 01/20/20 25 01/20/2025 COMP. METAB OLIC PANEL (14) sodium 140 mmol/ L 134-14 4 normal Not Available [facility] ([facility]) [address] [place], [address], 01/20/2025 12:36:58 01/20/20 25 01/20/2025 COMP. METAB OLIC PANEL (14) potassium COMMEN T mmol/ L Test not perfo rmed. Serum was in conta ct with cells when recei parish which will make the resul t inacc urate . Not Available [facility] ([facility]) [address] [place], [address], 01/20/2025 12:36:58 01/20/20 25 01/20/2025 COMP. METAB OLIC PANEL (14) chloride 99 mmol/ L 96-106 normal Not Available [facility] ([facility]) [address] [place], [address], 01/20/2025 12:36:58 01/20/20 25 01/20/2025 COMP. METAB OLIC PANEL (14) carbon dioxide, total 21 mmol/ L 20-29 normal Not Available [facility] ([facility]) [address] [place], [address], 01/20/2025 12:36:58 01/20/20 25 01/20/2025 COMP. METAB OLIC PANEL (14) calcium 8.9 mg/dL 8.7-10 .2 normal Not Available [facility] ([facility]) [address] [place], [address], 01/20/2025 12:36:58 01/20/20 25 01/20/2025 COMP. METAB OLIC PANEL (14) protein, total 7.6 g/dL 6.0-8. 5 normal Not Available [facility] ([facility]) [address] [place], [address], 01/20/2025 12:36:58 01/20/20 25 01/20/2025 COMP. METAB OLIC PANEL (14) albumin 4.3 g/dL 3.8-4. 9 normal Not Available [facility] ([facility]) [address] [facility], [place], [address], 01/20/2025 12:36:58 01/20/20 25 01/20/2025 COMP. METAB OLIC PANEL (14) globulin, total 3.3 g/dL 1.5-4. 5 Not Available [facility] ([facility]) [address] [place], [address], 01/20/2025 12:36:58 01/20/20 25 01/20/2025 COMP. METAB OLIC PANEL (14) bilirubin, total 0.8 mg/dL 0.0-1. 2 normal Not Available [facility] ([facility]) [address] [facility], [place], [address], 01/20/2025 12:36:58 01/20/20 25 01/20/2025 COMP. METAB [...] 129 48 - 129 Not Available [facility] ([facility]) [address] [facility], [place], [address], 01/20/2025 12:36:58 01/20/20 25 01/20/2025 COMP. METAB OLIC PANEL (14) AST (SGOT) 121 IU/L 0-40 above high normal Not Available [facility] ([facility]) [address] [place], [address], 01/20/2025 12:36:58 01/20/20 25 01/20/2025 COMP. METAB OLIC PANEL (14) ALT (SGPT) 29 IU/L 0-44 normal Not Available [facility] ([facility]) [address] [place], [address], 01/20/2025 12:36:58 01/20/20 25 01/20/2025 VITAM IN B12 AND FOLAT E vitamin B12 716 pg/mL 232-12 45 normal Not Available [facility] ([facility]) [address] [place], [address], 01/20/2025 12:36:59 01/20/2001/20/2025 VITAM IN B12 AND FOLAT E folate (folic acid), serum 14.4 NG/mL >3.0 normal A serum folat e margarita ntrat ion of less than 3.1 ng/mL is consi dered to repre sent clini geovany defic iency . Not Available [facility] ([facility]) [address] [facility], [place], [address], 01/20/2025 12:36:59 01/20/2001/20/2025 HEMOG LOBIN A1C hemoglobin A1C 5.3 % 4.8-5. 6 normal Predi abete s: 5.7 - 6.4 Diabe jolynn: >6.4 Glyce tracie contr ol for adult s with diabe jolynn: <7.0 Not Available [facility] ([facility]) [address] [place], [address], 01/20/2025 12:37:00 01/20/20 25 01/20/2025 VITAM IN [...] Endoc rine Socie ty [facility] e vitam in D insuf ficie ncy as a level betwe en 21 and 29 ng/mL (2). 1. IOM (Inst itute of Medic ine). 2009. Dieta ry refer ence intak es for calci um and D. Shawn gallegos [place]: [facility] Press . 2. Marilyn gonsalez MF, Dipti cruz [place], Willem off-F michael i YEUNG, et al. Evalu ation , treat ment, and preve ntion of vitam in D defic iency : an Endoc rine Socie ty clini geovany pract ice guide line. JCEM. 2010; 96(7) :1911 -30. Not Available [facility] ([facility]) [address] [facility], [place], [address], 01/20/2025 12:37:01 01/20/20 25 01/20/2025 MAGNE SIUM magnesium 2.0 mg/dL 1.6-2. 3 normal Not Available [facility] ([facility]) [address] [place], [address], 01/20/2025 12:37:01 01/23/[address], head, w/o contr ast No observ ation record ed. [address], [place], [address], 01/27/2025 13:05:34 Result Notes None recorded. Problems Name Problem SNOMED Code Status Onset Date Resolution Date Notes Provider Name and Address Organization Details Recorded Time Hypertensive disorder 18375836 Active 2016 MOHAMUD Rojas - [facility] 14:17:22 Hyperlipidemi a 68850591 Active 2016 Josefina Carballo null, [place] - [facility] 7 14:17:33 Pain of shoulder region 41763835 Active 2016 David Tobin MD [address], [place], [address] , [place] - [facility] 7 20:36:14 Neck pain 59491672 Active 2016 David Tobin MD [address], [place], [address] , [place] - [facility] 7 20:36:47 Acquired hypothyroidis m 993573050 Active 2017 Lori Salcedo null, [place] - [facility] 8 14:17:03 Initial insomnia 74979545 Active 2017 Lori Salcedo null, [place] - [facility] 8 17:54:02 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 2019 Faustinayan Fishe null, [place] - [facility] 0 14:31:32 Nicotine dependence 55978194 Active 2019 Faustina [place] null, [place] - [facility] 0 15:26:29 Complaining of erectile dysfunction Active 2019 Faustina [place] - [facility] 0 15:26:30 Liver enzymes outside reference range 745940011 Active 2019 Faustina [place] - [facility] 0 11:09:08 Harmful pattern of use of alcohol 26662546 Active 2019 Faustina [place] - [facility] 0 11:09:11 Anemia 259133581 Active 2021 Faustina [place] - [facility] 2 08:57:52 Decreased hearing 992603172 Active 2024 Crystal Holly null, [place] - [facility] 5 08:15:15 Near syncope 973081585 Active 2024 Marjan Call, [employer] [address], [place], [address] , [place] - [facility] 5 08:37:06 Alcohol use disorder Active 2024 Marjan Call, [employer] [address], [place], [address] , [place] - [facility] 08:38:18 Problem Notes [...] Name and Address Organization Details Recorded Time 01163 acetamino phen / hydrocodo ne medicatio n Not available Not available Not available 02/18/20162007 76884 2 RxNorm Not Available [facility] 6 08:28:18 56379 naproxen medicatio n itching Not available Not available 02/18/20162007 7258 RxNorm Not Available [facility] 6 10:03:26 Medications Name Sig Start Date [...] Completi on: 02/16/20 14;Indic ation: Pain - (16.7286 00) Not Available Not Available Not Available [...] Updated DateTime 5 177.8 cm 25.7 kg/m2 28564.0 3 g 63 /min 98 % 18 [...] preservative free, adsorbed 7 completed Not Available [facility] 01/19/2025 08:09:19 Tdap 3 completed Not Available [facility] 01/19/2025 08:09:19 influenza, unspecified formulation 3 completed Not Available [facility] 06/14/2019 02:21:32 influenza, unspecified formulation 4 completed Not Available [facility] 06/14/2019 02:21:32 Tdap 3 completed Not Available [facility] 06/14/2019 02:21:32 Past Encounters Encounter ID Performer Location Encounter Start Date Encounter Closed Date Diagnosis/Indication Diagnosis SNOMED-CT Code Diagnosis ICD10 Code Diagnosis IMO Codes Diagnosis Note [id number] Marjan Call APRN [facility] [address] [address] 01/19/2025 08:07:53 01/19/2025 08:51:20 Overweight in adulthood with body mass index of 25 or more but less than 30 569963387 E66.3 Z68.25 5947229058 Nicotine dependence 5629 4008 F17.200 53853190 Near syncope 003858764 R 55 396104 Alcohol use disorder 101 4912846 F10.20 62243565 Health Concerns Section Related Observation LastModified by Organization Detai ls LastModified Time None Recorded Concern Status LastModified by Organization Details LastModified Time None Recorded Payers Encounter Date Sequence Insurance Name Policy Number Policy Juarez Covered Member ID Juarez Member ID Guarantor Name 01/19/2025 1 [employer] [id number] Serafin Redd [id number] Serafin Redd Notes Date Note Type [...] abdomen - fell 3 weeks Marjan Call, [employer] [address], [place], [address], [place] - [facility] 01/19/2025 08:51:03
--- OUTSIDE RECORDS SUMMARY | 2025-04-20 06:51 | XMS_ITS | Clinical Summary ---
Author Organization [facility] Address [address] [place] [address] Phone Care Team Providers Care Physician Assistant Certified Name Role Phone Martin Richards MD Primary Care Provider [phone] Allergies Active Allergy Reactions Criticality Noted Date [...] patient's age to complete this topic Insurance [facility] PPO Care Teams Physician Assistant Certified Relationship Specialty Start Date End Date Martin Richards MD PCP - General Family Medicine 07/17/17
--- NOTE | 2025-04-20 07:00 | CT_ITS ---
FINAL REPORT TECHNIQUE: After the administration of oral and intravenous contrast, axial images were obtained through the abdomen and pelvis by computed tomography. The study was performed with techniques to keep radiation dose as low as reasonably achievable, (ALARA). Individual dose reduction techniques using automated exposure control or adjustment of mA and/or kV according to the patient's size were employed. CLINICAL HISTORY: Cirrhosis/ Ascites COMPARISON: None FINDINGS: Abdomen: Mild scarring is noted in the lung bases. The liver parenchyma demonstrates moderate fatty infiltration. The gallbladder is present. The spleen, pancreas, and adrenals appear unremarkable. A hypodense 1.8 cm cyst is present in the left kidney. The aorta is normal in caliber. A large amount of ascites is noted in the abdomen and pelvis. Pelvis: The appendix is normal in appearance. The urinary bladder is unremarkable. There is no free fluid or adenopathy. There is moderate degenerative narrowing noted of the hip joints bilaterally. IMPRESSION: Moderate fatty infiltration of the liver with a large amount of ascites noted in the abdomen and pelvis. Reviewed, Interpreted and Dictated by Miguel Stack MD Transcribed by Cristal Mahan Authenticated and [facility]
[2025-04-20] MEDS: IOPAMIDOL-370 (76%);100ML BOTTLE 75 ML IV (07:15)
[2025-04-20] MEDS: SODIUM CHLORIDE 0.9% 10ML SYR (RAD ONLY) 10 ML IV (07:15)
== END 2025-04-20 23:59 | disposition home or self-care (01) ==
LOC: RAD 06:48
PROVIDERS: PCP Family Medicine; Visit Provider Family Medicine
DX: K74.60 Unspecified cirrhosis of liver (principal); R18.8 Other ascites
CPT/HCPCS: 74177; Q9967